=== PATIENT | female | born 1945 | race Caucasian/White ===

== ENCOUNTER 2016-06-17 17:14 | Inpatient (IN) ==
[2016-06-17] MEDS ORDERED: Ipratropium/Albuterol Neb 3 ML IH ONE (18:10)
--- NOTE | 2016-06-17 18:19 | Emergency Department Note ---
Disposition Clinical Impression: Pneumonia, Hypoxemia, Sepsis, Frail elderly, Diabetes, COPD (chronic obstructive pulmonary disease), Hypertension Disposition: Admitted As Inpatient Referrals: Eddie Whitley MD [Primary Care Provider] - Forms: ED Satisfaction Letter General Adult HPI - General Chief complaint: ED Shortness of Breath/Dyspnea Stated complaint: LUKAS, sent from Dr. Rubin Time Seen by Provider: 06/17/16 18:18 Source: patient Limitations: no limitations - History of Present Illness HPI Narrative: 71-year-old female with history of COPD reports to the emergency department complaining of shortness of breath and cough. She has been treated outpatient with anabolic steroids but is apparently getting worse. She went to her primary care physician's office today and they noticed leg swelling and hypoxemia. The patient was sent to the ED for evaluation. The patient denies any CHF or history of CAD. She is not expressing chest pain. She has no history of malignancy PE or DVT. She has not coughed up blood or passed out. She describes upper respiratory symptoms with a significant cough and shortness of breath. There has been no abdominal pain vomiting or diarrhea. She is not noted to be anticoagulated. She is diabetic. The patient reports shortness of breath when laying flat/orthopnea. The patient does not take diuretic medication. She has had bilateral lower extremity swelling no unilateral swelling. There is no history of syncope. No trouble moving the arms or legs independently. No headache neck stiffness rash or convulsion. No falls or injuries back pain or weakness or numbness of the arms or legs. She does describe some urinary frequency. Onset (ago): day(s) Pain Scale: 0 - Related Data Allergies Allergy/AdvReac Type Severity Reaction Status Date / Time No Known Allergies Allergy Verified 10/21/15 11:17 All systems ED: reviewed and negative except as stated. Past Medical History - Past Medical History Medical history: Reports: COPD, diabetes, hyperlipidemia, hypertension, other Psychiatric history: Reports: anxiety - Social History Smoking Status: Current every day smoker Smokeless Tobacco Status: No Alcohol use: Reports: none Drug use: Reports: none Physical Exam - General Limitations: no limitations General appearance: alert, in no apparent distress - Head Head exam: atraumatic, normocephalic, normal inspection - Eye Eye exam: Present: normal appearance, PERRL, EOMI - ENT ENT exam: normal exam, normal oropharynx, mucous membranes moist - Neck Neck exam: Present: normal inspection, full ROM, trachea midline. Absent: tenderness - Chest Chest inspection: Present: symmetric chest wall rise. Absent: tenderness - Respiratory Respiratory exam: Present: prolonged expiratory phase. Absent: respiratory distress, wheezes - Cardiovascular Cardiovascular exam: Present: regular rate, normal rhythm, normal heart sounds - Abdominal Exam Abdominal exam: Present: soft, Non-Tender. Absent: tenderness, distention, guarding, rebound, rigidity, normal bowel sounds - Extremities Exam Extremities exam: Present: normal inspection, full ROM, normal capillary refill , pedal edema. Absent: tenderness, joint swelling, calf tenderness - Expanded Lower Extremity Exam Lower leg exam: Absent: Homans' sign - Back Exam Back exam: Present: normal inspection, full ROM. Absent: tenderness, CVA tenderness (R), CVA tenderness (L), vertebral tenderness - Neurological Exam Neurological exam: Present: alert, oriented X3, CN II-XII intact. Absent: motor sensory deficit - Psychiatric Psychiatric exam: Present: normal affect, normal mood - Skin Skin exam: Present: warm, dry, intact, normal color. Absent: rash, cyanosis, diaphoresis, erythema, pallor, mottled Course Vital Signs Temperature 98.5 F 06/17/16 18:03 Pulse Rate 115 06/17/16 18:03 Respiratory Rate 22 06/17/16 18:03 Blood Pressure 165/60 06/17/16 18:03 O2 Sat by Pulse Oximetry 78 L 06/17/16 18:03 Temperature 98.5 F 06/17/16 18:03 Pulse Rate 115 06/17/16 18:03 Respiratory Rate 20 06/17/16 19:09 Blood Pressure 165/60 06/17/16 18:03 O2 Sat by Pulse Oximetry 97 06/17/16 19:09 Oxygen Delivery Oxygen Delivery Room Air Medical Decision Making - [facility] Narrative Medical decision making narrative: The patient is elderly, has a history of diabetes, she is tachycardic and tachypneic with significant hypoxemia with an O2 saturation of 79% on arrival on room air. The patient meets sepsis criteria. Antibiotics were given IV fluids were ordered. Solu-Medrol was also given. She does have lower extremity edema bilateral with a negative BNP. The possibility for bilateral DVT and/or PE exists. Based on her acute findings, and certain need for hospitalization and further evaluation and treatment, I consulted the hospitalist slot machine department floorperson who is accepted the patient to their care. The patient is currently stable. She is alert sitting upright. A DuoNeb has been ordered. She has been treated outpatient on antibiotics and steroid medications which have not been helpful. She appears to a failed outpatient therapy. The patient does not usually require oxygen. She does have a history of COPD. - Lab Data Lab results reviewed: Yes I reviewed the patient's lab results. Result diagrams: 06/17/16 18:39 06/17/16 18:39 Lab Results 06/17/16 06/17/16 06/17/16 Range/Units 18:39 18:39 18:39 WBC 9.4 (4.3-11.1) K/mcL RBC 4.56 (3.82-4.97) M/mcL Hgb 13.2 (11.5-15.4) g/dL Hct 40.3 (35.3-44.9) % MCV 88.4 (83.0-100.0) fL MCH 28.9 (28.0-33.3) pg MCHC 32.8 (31.6-35.5) g/dL RDW 13.5 (11.5-14.5) % Plt Count 296 (140-400) K/mcL MPV 9.8 (9.4-12.4) fL Immature Gran % 0.3 (0-4) % Seg Neutrophils % 69.1 % Lymphocytes % 19.5 % Monocytes % 9.3 % Eosinophils % 1.5 % Basophils % 0.3 % Neutrophils # 6.5 (1.6-8.9) K/mcL Lymphocytes # 1.8 (0.6-4.6) K/mcL Monocytes # 0.9 (0.0-1.3) K/mcL Eosinophils # 0.1 (0.0-0.6) K/mcL Basophils # 0.0 (0.0-0.2) K/mcL PT 11.1 (9.4-12.1) Seconds INR 1.0 APTT 32.6 (26.0-36.0) Seconds Sodium 135 L (136-145) mEq/L Potassium 4.5 (3.5-4.5) mEq/L Chloride 96 L (98-109) mEq/L Carbon Dioxide 32 H (19-29) mEq/L BUN 15 (7-20) mg/dL Creatinine 0.79 (0.57-1.11) mg/dL Est GFR ( Amer) > 60 (> 60) Est GFR (Non-Af Amer) > 60 (> 60) BUN/Creatinine Ratio 19 (6-26) Glucose 378 H (70-99) mg/dL Calculated Osmolality 296 (280-300) Lactic Acid (0.5-2.2) mmol/L Calcium 9.6 (8.6-10.8) mg/dL Total Bilirubin 0.3 (0.2-1.2) mg/dL Direct Bilirubin 0.1 (0.0-0.5) mg/dL Indirect Bilirubin 0.2 (0.0-1.2) mg/dL AST 12 (5-34) Units/L ALT 21 (0-55) Units/L Alkaline Phosphatase 86 (38-126) Units/L Troponin I (0-0.03) ng/mL C-Reactive Protein 51 H (Less than 5) mg/L B-Natriuretic Peptide (0-100) pg/mL Serum Total Protein 7.5 (6.0-8.3) g/dL Albumin 3.2 L (3.5-5.0) g/dL Globulin 4.3 H (2.4-3.5) g/dL Albumin/Globulin Ratio 0.7 L (1.1-2.2) 06/17/16 06/17/16 06/17/16 Range/Units 18:39 18:39 18:39 WBC (4.3-11.1) K/mcL RBC (3.82-4.97) M/mcL Hgb (11.5-15.4) g/dL Hct (35.3-44.9) % MCV (83.0-100.0) fL MCH (28.0-33.3) pg MCHC (31.6-35.5) g/dL RDW (11.5-14.5) % Plt Count (140-400) K/mcL MPV (9.4-12.4) fL Immature Gran % (0-4) % Seg Neutrophils % % Lymphocytes % % Monocytes % % Eosinophils % % Basophils % % Neutrophils # (1.6-8.9) K/mcL Lymphocytes # (0.6-4.6) K/mcL Monocytes # (0.0-1.3) K/mcL Eosinophils # (0.0-0.6) K/mcL Basophils # (0.0-0.2) K/mcL PT (9.4-12.1) Seconds INR APTT (26.0-36.0) Seconds Sodium (136-145) mEq/L Potassium (3.5-4.5) mEq/L Chloride (98-109) mEq/L Carbon Dioxide (19-29) mEq/L BUN (7-20) mg/dL Creatinine (0.57-1.11) mg/dL Est GFR ( Amer) (> 60) Est GFR (Non-Af Amer) (> 60) BUN/Creatinine Ratio (6-26) Glucose (70-99) mg/dL Calculated Osmolality (280-300) Lactic Acid 1.1 (0.5-2.2) mmol/L Calcium (8.6-10.8) mg/dL Total Bilirubin (0.2-1.2) mg/dL Direct Bilirubin (0.0-0.5) mg/dL Indirect Bilirubin (0.0-1.2) mg/dL AST (5-34) Units/L ALT (0-55) Units/L Alkaline Phosphatase (38-126) Units/L Troponin I 0.01 (0-0.03) ng/mL C-Reactive Protein (Less than 5) mg/L B-Natriuretic Peptide 67 (0-100) pg/mL Serum Total Protein (6.0-8.3) g/dL Albumin (3.5-5.0) g/dL Globulin (2.4-3.5) g/dL Albumin/Globulin Ratio (1.1-2.2) - Radiology Data Radiology results reviewed: Yes I reviewed the patient's radiology results.
[2016-06-17] MEDS ORDERED: methylPREDNISolone 125 MG/2 ML VIAL IVP ONE (18:39)
[2016-06-17 18:48] LABS: Basophils % 0.3 %; Eosinophils # 0.1 K/mcL (0.0-0.6); Eosinophils % 1.5 %; Hematocrit 40.3 % (35.3-44.9); Hemoglobin 13.2 g/dL (11.5-15.4); Immature Granulocytes % 0.3 % (0-4); Lymphocytes # 1.8 K/mcL (0.6-4.6); Lymphocytes % 19.5 %; Mean Corpuscular HGB Conc 32.8 g/dL (31.6-35.5); Mean Corpuscular Hemoglobin 28.9 pg (28.0-33.3); Mean Corpuscular Volume 88.4 fL (83.0-100.0); Mean Platelet Volume 9.8 fL (9.4-12.4); Monocytes # 0.9 K/mcL (0.0-1.3); Monocytes % 9.3 %; Neutrophils # 6.5 K/mcL (1.6-8.9); Platelet Count 296 K/mcL (140-400); Red Blood Count 4.56 M/mcL (3.82-4.97); Red Cell Distribution Width 13.5 % (11.5-14.5); Segmented Neutrophils % 69.1 %
[2016-06-17 18:57] LABS: Prothrombin Time 11.1 Seconds (9.4-12.1)
[2016-06-17 19:00] LABS: Activated Partial Thrombo Time 32.6 Seconds (26.0-36.0)
[2016-06-17 19:09] LABS: Alanine Aminotransferase 21 Units/L (0-55); Albumin 3.2 g/dL (3.5-5.0); Albumin/Globulin Ratio 0.7 (1.1-2.2); Alkaline Phosphatase 86 Units/L (38-126); Aspartate Amino Transferase 12 Units/L (5-34); BUN/Creatinine Ratio 19 (6-26); Bilirubin,Direct 0.1 mg/dL (0.0-0.5); Bilirubin,Indirect 0.2 mg/dL (0.0-1.2); Bilirubin,Total 0.3 mg/dL (0.2-1.2); Blood Urea Nitrogen 15 mg/dL (7-20); C-Reactive Protein 51 mg/L (Less than 5); Calcium 9.6 mg/dL (8.6-10.8); Carbon Dioxide 32 mEq/L (19-29); Chloride 96 mEq/L (98-109); Globulin 4.3 g/dL (2.4-3.5); Glucose 378 mg/dL (70-99); Osmolality,Calculated 296 (280-300); Potassium 4.5 mEq/L (3.5-4.5); Sodium 135 mEq/L (136-145); Total Protein 7.5 g/dL (6.0-8.3); eGFR For African Americans > 60 (> 60); eGFR For Non-African Americans > 60 (> 60)
[2016-06-17] MEDS ORDERED: Levofloxacin 750 MG/150 ML 750 MG/150 ML BAG IVPB ONE (19:17)
[2016-06-17] MEDS ORDERED: 0.9 % Sodium Chloride 1,000 ML IVC SCH (19:45)
[2016-06-17] MEDS ORDERED: Naloxone 0.4 MG/ML INJ IVP PRN (19:57)
[2016-06-17] MEDS ORDERED: Azithromycin 500 MG in D5% in Water 250 ML IVPB ONE (20:01)
[2016-06-17] MEDS ORDERED: Insulin LISPRO 300 UNITS/3 ML VIAL SQ ONE (21:00)
[2016-06-17] MEDS ORDERED: Insulin Regular, Human 100 UNIT/ML SQ ONE (21:09)
[2016-06-17] MEDS ORDERED: D5% in Water 1,000 ML IV PRN (21:54)
[2016-06-17] MEDS ORDERED: *HR* Dextrose 50 % in Water (Syg) 50 ML SYRINGE IVP PRN (21:54)
[2016-06-17] MEDS ORDERED: Dextrose Gel 15 GM PO PRN ×2 (21:54)
--- NOTE | 2016-06-17 22:30 | Internal Med History&Physical ---
Date of Encounter: 06/17/16 Time of Encounter: 10:15 Assessment and Plan (1) Sepsis Current visit: Yes Status: Suspected Admitting patient for sepsis. Patient has positive SIRS criteria with pneumonia. We will treat with IV antibiotics. Follow culture results. Lactate normal. Qualifiers: Sepsis type: Pneumococcus Qualified Code(s): A40.3 - Sepsis due to Streptococcus pneumoniae (2) Pneumonia Current visit: Yes Status: Suspected The patient has pneumonia per chest x-ray and clinical findings. Will treat with IV antibiotics. Follow culture results. We will also send sputum for culture. Qualifiers: Pneumonia type: due to Pneumococcus Laterality: bilateral Lung location: unspecified part of lung Qualified Code(s): J13 - Pneumonia due to Streptococcus pneumoniae (3) Diabetes Current visit: Yes Status: Chronic Elevated blood sugars. Will place patient on sliding scale insulin and Levemir. Monitor blood sugars closely. 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 Will treat with DuoNeb's. Oral steroids. Qualifiers: COPD type: emphysema Emphysema type: other Qualified Code(s): J43.8 - Other emphysema (5) Hypertension Current visit: Yes Status: Chronic Elevated blood pressure. Will continue home medications and monitor blood pressure closely. Qualifiers: Hypertension type: essential hypertension Qualified Code(s): I10 - Essential (primary) hypertension (6) Hypoxemia Current visit: Yes Status: Acute O2 supplementation. Likely due to combination of COPD and pneumonia. Patient will need to be evaluated for home oxygen prior to discharge. (7) Bilateral lower extremity edema Current visit: Yes Status: Acute Check d-dimer, venous Doppler of lower extremities. BNP is normal. Consider 2- D echocardiogram to better evaluate heart function. Internal Medicine - H&P: HPI Chief complaint: Shortness of breath, cough Admitted From: Emergency Dept Plans for Post Hospital Care: Home History of present illness: Ms. Conroy is a 71 year old female with history of COPD, type 2 diabetes mellitus, hyperlipidemia, hypertension who presented to the ER with complaints of continued shortness of breath. Her symptoms have been going on for about 2 weeks now. She initially had symptoms suggestive of sinusitis and was prescribed azithromycin and steroids to help with her symptoms. She completed the treatment course but did not improve. She saw her primary care provider prescribed her Levaquin about 5 days back. She took Levaquin for 3 days and then began to develop swelling in her legs. She was last discharged medication by her primary care provider who saw her in the clinic today. She was hypoxic and so sent to the ER. She continues to have cough with yellow sputum. She denies any chest pain. No nausea or vomiting. No decrease in urine output. No hemoptysis. Past Med Surg Social Fam HX - Past Medical History Medical history: COPD, diabetes, hyperlipidemia, hypertension, other Psychiatric history: anxiety - Social History Smoking Status: Current every day smoker Smokeless Tobacco Status: No Alcohol use: none Drug use: none - Additional Family History Additional family history: History of emphysema and family including her mother and sisters Internal Medicine - H&P: Meds Albuterol Sulfate [Albuterol Inhaler] 2 puff IH Q4H PRN 06/17/16 [History] Aspirin Enteric Coated [Aspirin EC] 81 mg PO DAILY 06/17/16 [History] Benzonatate [Tessalon] 100 mg PO TID PRN 06/17/16 [History] Fenofibrate [Fenofibrate] 54 mg PO DAILY 06/17/16 [History] Glimepiride [Amaryl] 4 mg PO BID 06/17/16 [History] Lisinopril [Zestril] 20 mg PO DAILY 06/17/16 [History] Metformin HCl [Metformin HCl] 1,000 mg PO BID 06/17/16 [History] Pioglitazone [Actos] 15 mg PO DAILY 06/17/16 [History] Simvastatin [Zocor] 20 mg PO HS 06/17/16 [History] Tiotropium [place] [Spiriva] 18 mcg IH DAILY 06/17/16 [History] Allergies levofloxacin [From Levaquin] Allergy (Verified 06/17/16 20:47) Swelling of Lip/Tongue/Throat All Systems PM: A 10-system review of systems was performed and is negative for pertinent findings except as documented above in the HPI. - Constitutional Constitutional: malaise, no chills, no fever(s), no night sweats - EENT Eyes: no change in vision, no discharge, no pain, no photophobia Ears: no ear discharge, no ear pain, no tinnitus Nose, mouth and throat: nasal congestion, sinus pressure, no dysphagia, no nasal discharge, no neck pain, no sore throat - Cardiovascular Cardiovascular ROS IM: edema, no chest pain, no diaphoresis, no dyspnea, no lightheadedness, no palpitations, no syncope - Respiratory Respiratory: cough, excessive phlegm production, change in phlegm color, no dyspnea, no wheezing - Gastrointestinal Gastrointestinal: no abdominal pain, no diarrhea, no hematemesis, no hematochezia, no melena, no nausea, no vomiting - Genitourinary Genitourinary: no change in urinary stream, no dysuria, no flank pain, no hematuria - Musculoskeletal Musculoskeletal ROS IM: no numbness, no tingling - Integumentary Integumentary IM: no rash, no unusual bruising - Neurological Neurological ROS: no confusion, no convulsions, no focal weakness, no numbness, no tingling, no tremor(s) - Endocrine Endocrine IM: no cold intolerance, no fatigue, no flushing, no heat intolerance - Hematologic/Lymphatic Hematologic/Lymphatic: no easy bruising - Allergic/Immunologic Allergic/Immunologic: no tongue swelling, no throat swelling - Constitutional Vitals: Temp Pulse Resp BP Pulse Ox 98.7 F 98 20 136/112 94 L 06/17/16 22:18 06/17/16 22:18 06/17/16 22:18 06/17/16 22:18 06/17/16 22:18 General appearance: Present: cooperative, mild distress, A&O X 3, pleasant, answers questions appropriately - Eye Eye exam: Present: EOMI, PERRL, conjuntiva pink, sclera anicteric - ENT ENT exam: Present: mucous membranes moist - Respiratory Respiratory exam: Present: decreased breath sounds (Decreased air entry bilaterally), prolonged expiratory phase. Absent: accessory muscle use, rales, rhonchi, wheezes - Cardiovascular Cardiovascular exam: Present: RRR, +S1, +S2. Absent: diastolic murmur, gallop, rubs, systolic murmur - GI/Abdominal GI/Abdominal exam: Present: normal bowel sounds, soft, no peritoneal signs. Absent: distended, tenderness - Extremities Exam Extremities exam: Present: pedal edema (Bilateral lower extremity), warm, radial pulses palpable and symetrical. Absent: calf tenderness, cyanotic - Neurological Exam Neurological exam: Present: alert, CN II-XII intact, oriented X3, no focal deficits, strengths equal and symetr throughout. Absent: facial droop, speech deficit - Skin Skin exam: Present: dry, intact Internal Med - H&P Results - Labs CBC & Chem 7: 06/17/16 18:39 06/17/16 18:39 - Impressions Chest x-ray shows bilateral interstitial opacities - Attending Attestation This document has been at least partially created by Qinti recognition technology by Dr. Alarcon. Errors in grammar, wording or other phrases may exist. If errors are found after the documentation is signed, they will be addressed individually in the addendum section of this document when appropriate.
[2016-06-17] MEDS ORDERED: Benzonatate 100 MG CAPSULE PO PRN (22:37)
[2016-06-17] MEDS: Albuterol 2.5 MG/3 ML NEBULIZER IH SCH (23:24)
[2016-06-18] MEDS: Piperacillin/Tazobactam 3.375 GM in D5% in Water (Mini-Bag+) 100 ML IVPB SCH ×2 (00:06→08:39)
[2016-06-18] MEDS: Albuterol 2.5 MG/3 ML NEBULIZER IH SCH ×3 (04:07→11:47)
[2016-06-18] MEDS: Doxycycline 100 MG in 0.9 % Sodium Chloride Mini Bag 100 ML IVPB SCH ×2 (05:49→17:54)
[2016-06-18 06:12] LABS: Basophils % 0.1 %; Hematocrit 39.9 % (35.3-44.9); Hemoglobin 12.9 g/dL (11.5-15.4); Immature Granulocytes % 0.5 % (0-4); Lymphocytes # 0.7 K/mcL (0.6-4.6); Lymphocytes % 7.5 %; Mean Corpuscular HGB Conc 32.3 g/dL (31.6-35.5); Mean Corpuscular Hemoglobin 28.4 pg (28.0-33.3); Mean Corpuscular Volume 87.9 fL (83.0-100.0); Mean Platelet Volume 9.8 fL (9.4-12.4); Monocytes # 0.1 K/mcL (0.0-1.3); Monocytes % 0.9 %; Neutrophils # 8.5 K/mcL (1.6-8.9); Platelet Count 309 K/mcL (140-400); Red Blood Count 4.54 M/mcL (3.82-4.97); Red Cell Distribution Width 13.3 % (11.5-14.5)
[2016-06-18 06:24] LABS: BUN/Creatinine Ratio 21 (6-26); Blood Urea Nitrogen 16 mg/dL (7-20); Calcium 9.4 mg/dL (8.6-10.8); Carbon Dioxide 28 mEq/L (19-29); Chloride 97 mEq/L (98-109); Glucose 390 mg/dL (70-99); Osmolality,Calculated 297 (280-300); Potassium 5.1 mEq/L (3.5-4.5); Sodium 135 mEq/L (136-145); eGFR For African Americans > 60 (> 60); eGFR For Non-African Americans > 60 (> 60)
[2016-06-18] MEDS: *HR* Heparin 5,000 UNIT/ML VIAL SQ SCH ×2 (08:38→18:00)
[2016-06-18] MEDS: Fenofibrate 54 MG TABLET PO SCH (08:39)
[2016-06-18] MEDS: Aspirin Enteric Coated 81 MG Tablet PO SCH (08:40)
[2016-06-18] MEDS: predniSONE 20 MG TABLET PO SCH (08:40)
[2016-06-18] MEDS: Insulin LISPRO 300 UNITS/3 ML VIAL SQ SCH ×2 (08:44→12:46)
[2016-06-18] MEDS ORDERED: Insulin DETEMIR 100 UNIT/ML X5UNITS SQ SCH ×2 (09:00→21:00)
[2016-06-18] MEDS ORDERED: Lisinopril 20 MG TABLET PO SCH (09:00)
[2016-06-18] MEDS ORDERED: Tiotropium 18 MCG inhalation IH SCH (09:00)
--- NOTE | 2016-06-18 09:54 | Electrocardiograph Report ---
[address] [address] Test Date: 2016-06-17 Pat Name: Clary Conroy Department: 103 Room: 2N7 Gender: F Human Resources Partner: : [id number] Requested By: Darwin Cardona Order Number: [id number] Reading MD: Aisha Quarles Measurements Intervals [place] Rate: 108 P: 53 ME: 156 QRS: 59 QRSD: 90 T: 78 QT: 313 QTc: 376 Interpretive Statements SINUS TACHYCARDIA POSSIBLE LEFT ATRIAL ENLARGEMENT MINIMAL ST DEPRESSION ABNORMAL RHYTHM ECG Electronically Signed On 06-18-2016 9:52:29 EST by Aisha Quarles
[2016-06-18 13:05] LABS: Bilirubin,Urine Negative (Negative); Blood,Urine Negative (Negative); Clarity,Urine Clear (Clear); Color,Urine Yellow (Yellow); Glucose,Urine (UA) >=1000 mg/dL (Normal); Ketones,Urine Negative (Negative); Leukocyte Esterase,Urine Negative (Negative); Nitrite,Urine Negative (Negative); Protein,Urine Negative (Neg-Trace); Specific Gravity,Urine > 1.030 (1.010-1.025); Urobilinogen,Urine Normal (Normal)
[2016-06-18 14:03] LABS: Hemoglobin A1C 8.5 %
[2016-06-18] MEDS ORDERED: 0.9 % Sodium Chloride 500 ML IVC ONE (14:13)
[2016-06-18] MEDS ORDERED: Albuterol 2.5 MG/3 ML NEBULIZER IH PRN (14:18)
[2016-06-18] MEDS: Nicotine 21 MG PATCH.TD24 TD SCH (14:38)
[2016-06-18] MEDS: Loratadine 10 MG TABLET PO SCH (14:39)
[2016-06-18] MEDS: *HR* LORazepam 2 MG/ML VIAL IVP SCH ×2 (14:39→19:56)
[2016-06-18] MEDS ORDERED: Insulin LISPRO 300 UNITS/3 ML VIAL SQ SCH ×3 (14:46→21:00)
[2016-06-18 14:51] LABS: Albumin 3.1 g/dL (3.5-5.0); Albumin/Globulin Ratio 0.7 (1.1-2.2); Bilirubin,Total 0.3 mg/dL (0.2-1.2); Calcium 8.7 mg/dL (8.6-10.8); Globulin 4.3 g/dL (2.4-3.5); Magnesium 1.6 mg/dL (1.6-2.6); Phosphorous 3.2 mg/dL (2.3-4.7); Potassium 4.8 mEq/L (3.5-4.5); Total Protein 7.4 g/dL (6.0-8.3)
[2016-06-18] MEDS ORDERED: *HR* Dextrose 50 % in Water (Syg) 50 ML SYRINGE IVP PRN (15:40)
[2016-06-18] MEDS ORDERED: 0.9 % Sodium Chloride 1,000 ML IVC SCH (15:45)
[2016-06-18] MEDS ORDERED: Insulin Human Regular 100 UNIT in 0.9 % Sodium Chloride 100 ML IVC SCH (15:45)
--- NOTE | 2016-06-18 15:45 | Internal Med Progress Note ---
Date of Encounter: 06/18/16 Time of Encounter: 12:30 - Assessment and plan (1) Pneumonia Current Visit: Yes Status: Acute Assessment and plan: Chest XRay shows B/L interstitial opacities, failed outpatient therapy. Continue IV antibiotics- Doxycycline, hold Zosyn for now; completed Azithromycin and developed some leg swelling due to Levaquin per patient; f/up blood cultures; continue supportive care and supplemental O2; Qualifiers: Pneumonia type: due to unspecified organism Laterality: bilateral Lung location: unspecified part of lung Qualified Code(s): J18.9 - Pneumonia, unspecified organism (2) Sepsis Current Visit: Yes Status: Acute Assessment and plan: plan as above; monitor vitals closely; currently noted to be tachycardic and hypoxic, could be due to hyperglycemia; D-dimer noted to be WNL, may consider PE if vitals continue to remain abnormal; Qualifiers: Sepsis type: sepsis due to unspecified organism Qualified Code(s): A41.9 - Sepsis, unspecified organism (3) Hyperglycemia Current Visit: Yes Status: Acute Assessment and plan: HbA1C noted to be 8.5% which is not too bad, but patient continues to have increasing blood sugars, the most recent being in 700s on BMP. Could be due to recent use and current use of oral steroids. No e/o- metabolic acidosis or increased anion gap. Due to uncontrolled blood sugars with subcutaneous insulin regimen, will start IV insulin drip at this time along with aggressive IV hydration. Keep NPO and repeat BMP in 4 hours; monitor Accuchecks Q1hrly; (4) Bilateral lower extremity edema Current Visit: Yes Status: Acute Assessment and plan: could be due to side-effects from recent limited Levaquin use; check Venous Doppler ultrasound to r/o DVT; (5) Hypoxemia Current Visit: Yes Status: Acute Assessment and plan: patient likely has acute on chronic hypoxia due to underlying Pneumonia and COPD ; continue supplemental O2, home O2 evaluation prior to discharge; (6) COPD (chronic obstructive pulmonary disease) Current Visit: Yes Status: Chronic Assessment and plan: start scheduled bronchodilators along with supplemental O2; Qualifiers: COPD type: emphysema Emphysema type: unspecified Qualified Code(s): J43.9 - Emphysema, unspecified (7) Diabetes Current Visit: Yes Status: Chronic Qualifiers: Diabetes mellitus type: type 2 Diabetes mellitus complication status: with hyperglycemia Diabetes mellitus custodial insulin use: without custodial use Qualified Code(s): E11.65 - Type 2 diabetes mellitus with hyperglycemia (8) Hypertension Current Visit: Yes Status: Chronic Qualifiers: Hypertension type: essential hypertension Qualified Code(s): I10 - Essential (primary) hypertension - Subjective Interval history: Feels better than yesterday but feels anxious and slightly short of breath; reports cough at home; smokes about 2-3 packs per day per family at bedside; - Constitutional Vitals: Temp Pulse Resp BP Pulse Ox 98.8 F 114 16 140/68 95 06/18/16 03:59 06/18/16 15:00 06/18/16 15:00 06/18/16 15:00 06/18/16 15:00 General appearance: Present: cooperative, mild distress, A&O X 3, obese, answers questions appropriately - Respiratory Respiratory exam: Present: decreased breath sounds (decreased air entry B/L). Absent: accessory muscle use, rales, rhonchi, wheezes - Cardiovascular Cardiovascular exam: Present: RRR, +S1, +S2, tachycardia. Absent: diastolic murmur, gallop, rubs, systolic murmur - Extremities Exam Extremities exam: Present: pedal edema (1+ pitting pedal edema B/L legs), warm, radial pulses palpable and symetrical. Absent: calf tenderness, cyanotic - Neurological Exam Neurological exam: Present: CN II-XII intact, oriented X3, no focal deficits. Absent: pronater drift, facial droop, speech deficit - Skin Skin exam: Present: dry, intact Internal Medicine: Result - Labs CBC & Chem 7: 06/18/16 05:55 06/18/16 13:27 Labs: Short CBC 06/18/16 Range/Units 05:55 WBC 9.4 (4.3-11.1) K/mcL Hgb 12.9 (11.5-15.4) g/dL Hct 39.9 (35.3-44.9) % Plt Count 309 (140-400) K/mcL Neutrophils # 8.5 (1.6-8.9) K/mcL BMP 06/18/16 06/18/16 05:55 13:27 Sodium 135 L 134 L Potassium 5.1 H 4.8 H Chloride 97 L 94 L Carbon Dioxide 28 27 BUN 16 20 Creatinine 0.77 1.11 Glucose 390 H 752 H* Calcium 9.4 8.7 Liver Function 06/18/16 Range/Units 13:27 Total Bilirubin 0.3 (0.2-1.2) mg/dL AST 14 (5-34) Units/L ALT 22 (0-55) Units/L Alkaline Phosphatase 75 (38-126) Units/L Albumin 3.1 L (3.5-5.0) g/dL Urine 06/18/16 Range/Units 12:58 Urine Color Yellow (Yellow) Urine Clarity Clear (Clear) Urine pH 6.0 (5.0-8.0) pH Units Ur Specific [place] > 1.030 H (1.010-1.025) Urine Protein Negative (Neg-Trace) mg/dL Urine Glucose (UA) >=1000 H (Normal) mg/dL - ABG Interpretation ABG results: PT/INR, D-dimer PT 11.1 Seconds (9.4-12.1) 06/17/16 18:39 D-Dimer 442 ng/mLFEU (0-500) 06/17/16 22:45 - VTE Documentation of Mechanical Device: Intermittent pneumatic compression device Consult Discharge Plan - Plan Referrals: Eddie Whitley MD [Primary Care Provider] - 06/25/16 3:30 pm
[2016-06-18] MEDS: Ipratropium/Albuterol Neb 3 ML IH SCH ×3 (16:50→23:28)
[2016-06-18 22:05] LABS: BUN/Creatinine Ratio 34 (6-26); Blood Urea Nitrogen 23 mg/dL (7-20); Carbon Dioxide 28 mEq/L (19-29); Chloride 103 mEq/L (98-109); Glucose 79 mg/dL (70-99); Osmolality,Calculated 295 (280-300); eGFR For African Americans > 60 (> 60); eGFR For Non-African Americans > 60 (> 60)
[2016-06-18 22:06] LABS: Sodium 141 mEq/L (136-145)
[2016-06-19] MEDS: *HR* LORazepam 2 MG/ML VIAL IVP SCH ×2 (03:02→09:22)
[2016-06-19] MEDS: Ipratropium/Albuterol Neb 3 ML IH SCH ×5 (04:15→20:31)
[2016-06-19 04:21] LABS: Basophils % 0.1 %; Eosinophils % 0.1 %; Hematocrit 35.2 % (35.3-44.9); Immature Granulocytes % 0.5 % (0-4); Lymphocytes % 14.6 %; Mean Corpuscular HGB Conc 31.5 g/dL (31.6-35.5); Mean Corpuscular Hemoglobin 28.1 pg (28.0-33.3); Mean Corpuscular Volume 89.1 fL (83.0-100.0); Mean Platelet Volume 9.4 fL (9.4-12.4); Monocytes % 7.2 %; Neutrophils # 10.6 K/mcL (1.6-8.9); Platelet Count 285 K/mcL (140-400); Red Blood Count 3.95 M/mcL (3.82-4.97); Red Cell Distribution Width 13.7 % (11.5-14.5); Segmented Neutrophils % 77.5 %
[2016-06-19 04:37] LABS: Hemoglobin 11.1 g/dL (11.5-15.4)
[2016-06-19 04:55] LABS: BUN/Creatinine Ratio 38 (6-26); Blood Urea Nitrogen 27 mg/dL (7-20); Calcium 8.3 mg/dL (8.6-10.8); Carbon Dioxide 30 mEq/L (19-29); Chloride 102 mEq/L (98-109); Glucose 189 mg/dL (70-99); Osmolality,Calculated 302 (280-300); Sodium 141 mEq/L (136-145); eGFR For African Americans > 60 (> 60); eGFR For Non-African Americans > 60 (> 60)
[2016-06-19] MEDS: Doxycycline 100 MG in 0.9 % Sodium Chloride Mini Bag 100 ML IVPB SCH ×2 (06:05→17:10)
[2016-06-19] MEDS: *HR* Heparin 5,000 UNIT/ML VIAL SQ SCH ×3 (06:34→21:01)
[2016-06-19] MEDS: predniSONE 20 MG TABLET PO SCH (09:27)
[2016-06-19] MEDS: Nicotine 21 MG PATCH.TD24 TD SCH (09:27)
[2016-06-19] MEDS: Aspirin Enteric Coated 81 MG Tablet PO SCH (09:28)
[2016-06-19] MEDS: Fenofibrate 54 MG TABLET PO SCH (09:28)
[2016-06-19] MEDS: Loratadine 10 MG TABLET PO SCH (09:29)
[2016-06-19] MEDS: Insulin LISPRO 300 UNITS/3 ML VIAL SQ SCH ×3 (09:29→17:11)
[2016-06-19] MEDS ORDERED: Furosemide 20 MG/2 ML VIAL IVP ONE (11:11)
[2016-06-19] MEDS ORDERED: *HR* LORazepam 2 MG/ML VIAL IVP PRN (11:11)
[2016-06-19] MEDS: Acetaminophen 325 MG TABLET PO PRN (12:34)
--- NOTE | 2016-06-19 13:25 | Internal Med Progress Note ---
Date of Encounter: 06/19/16 Time of Encounter: 11:15 - Assessment and plan (1) Pneumonia Current Visit: Yes Status: Acute Assessment and plan: Chest XRay shows B/L interstitial opacities, failed outpatient therapy. Continue IV antibiotics- Doxycycline- day 2, f/up blood cultures; continue supportive care and supplemental O2; Qualifiers: Pneumonia type: due to unspecified organism Laterality: bilateral Lung location: unspecified part of lung Qualified Code(s): J18.9 - Pneumonia, unspecified organism (2) Sepsis Current Visit: Yes Status: Acute Assessment and plan: plan as above; monitor vitals closely; improved tachycardia but continues to be hypoxic, requiring at least 4-5 L/m supplemental oxygen via nasal cannula. Needs home oxygen evaluation prior to discharge. Qualifiers: Sepsis type: sepsis due to unspecified organism Qualified Code(s): A41.9 - Sepsis, unspecified organism (3) Hyperglycemia Current Visit: Yes Status: Acute Assessment and plan: HbA1C noted to be 8.5% which is not too bad. Blood sugars today are noted to be improved. Patient is currently off IV insulin drip. We will resume diabetic diet and continue basal bolus insulin regimen. Continue Accu-Chek blood glucose monitoring. (4) Bilateral lower extremity edema Current Visit: Yes Status: Acute Assessment and plan: could be due to side-effects from recent limited Levaquin use; Venous Doppler ultrasound shows no evidence of DVT. Will check 2-D echocardiogram for left ventricular systolic function and ejection fraction due to chest x-ray findings of pulmonary vascular congestion along with the patient receiving aggressive IV hydration for hyperglycemia treatment. We will give a small dose of IV Lasix today. (5) Hypoxemia Current Visit: Yes Status: Acute Assessment and plan: patient likely has acute on chronic hypoxia due to underlying Pneumonia and COPD ; continue supplemental O2, home O2 evaluation prior to discharge; (6) COPD (chronic obstructive pulmonary disease) Current Visit: Yes Status: Chronic Assessment and plan: Improving slowly but patient has underlying anxiety complicating her hospital course. Continue oral steroids along with IV antibiotics and scheduled bronchodilators. Continue supplemental oxygen. Smoking cessation counseling provided. Qualifiers: COPD type: emphysema Emphysema type: unspecified Qualified Code(s): J43.9 - Emphysema, unspecified (7) Diabetes Current Visit: Yes Status: Chronic Qualifiers: Diabetes mellitus type: type 2 Diabetes mellitus complication status: with hyperglycemia Diabetes mellitus ferry terminal agent insulin use: without ferry terminal agent use Qualified Code(s): E11.65 - Type 2 diabetes mellitus with hyperglycemia (8) Hypertension Current Visit: Yes Status: Chronic Qualifiers: Hypertension type: essential hypertension Qualified Code(s): I10 - Essential (primary) hypertension (9) Tobacco abuse Current Visit: Yes Status: Chronic Assessment and plan: Continue nicotine transdermal patch. - Subjective Interval history: Noted to be very anxious and concerned about her discharge date; reports she had a good night's sleep, however feels restless. Improving leg swelling, no chest pain, dyspnea, orthopnea; - Constitutional Vitals: Temp Pulse Resp BP Pulse Ox 97.4 F L 105 22 122/64 90 L 06/19/16 11:34 06/19/16 11:34 06/19/16 11:34 06/19/16 11:34 06/19/16 11:34 General appearance: Present: mild distress, A&O X 3, obese, answers questions appropriately - Respiratory Respiratory exam: Present: rales (faint crackles B/L bases). Absent: accessory muscle use, rhonchi, wheezes - Cardiovascular Cardiovascular exam: Present: RRR, +S1, +S2, tachycardia. Absent: diastolic murmur, gallop, rubs, systolic murmur - GI/Abdominal GI/Abdominal exam: Present: normal bowel sounds, soft, no peritoneal signs. Absent: distended, tenderness - Extremities Exam Extremities exam: Present: pedal edema (slightly improved pedal edema), warm, radial pulses palpable and symetrical. Absent: calf tenderness, cyanotic Internal Medicine: Result - Labs CBC & Chem 7: 06/19/16 04:12 06/19/16 04:12 Labs: Short CBC 06/19/16 Range/Units 04:12 WBC 13.7 H (4.3-11.1) K/mcL Hgb 11.1 L D (11.5-15.4) g/dL Hct 35.2 L (35.3-44.9) % Plt Count 285 (140-400) K/mcL Neutrophils # 10.6 H (1.6-8.9) K/mcL BMP 06/18/16 06/18/16 06/19/16 13:27 21:17 04:12 Sodium 134 L 141 D 141 Potassium 4.8 H 4.0 4.0 Chloride 94 L 103 102 Carbon Dioxide 27 28 30 H BUN 20 23 H 27 H Creatinine 1.11 0.68 0.72 Glucose 752 H* 79 189 H Calcium 8.7 9.0 8.3 L Liver Function 06/18/16 Range/Units 13:27 Total Bilirubin 0.3 (0.2-1.2) mg/dL AST 14 (5-34) Units/L ALT 22 (0-55) Units/L Alkaline Phosphatase 75 (38-126) Units/L Albumin 3.1 L (3.5-5.0) g/dL - ABG Interpretation ABG results: PT/INR, D-dimer PT 11.1 Seconds (9.4-12.1) 06/17/16 18:39 D-Dimer 442 ng/mLFEU (0-500) 06/17/16 22:45 - Impressions Impressions Chest X-Ray 06/19/16 03:55 IMPRESSION: Pulmonary vascular congestion. This has slightly worsened since the prior exam. D/ / Emily Lemon MD / Emily Lemon MD Interpreting Provider: Emily Lemon MD - VTE Documentation of Mechanical Device: Intermittent pneumatic compression device Consult Discharge Plan - Plan Referrals: Eddie Whitley MD [Primary Care Provider] - 06/25/16 3:30 pm
--- NOTE | 2016-06-19 17:49 | Venous Imaging Report ---
LE Venous Duplex Patient Name:Clary Conroy Order Number:[id number] Procedure Date:06/18/2016 Date:4Age:71 yrs Gender:Female Location:[facility] Room #: [id number] Tipple Worker:Fabiola Lujan Referring MD:Erica Alarcon MD electrical control assembler:Eddie Whitley MD Reading MD:Toni Calhoun MD Primary Indications:Bilateral pedal edema, suspect DVT Secondary Indications: Risk Factors Yes/No Anticoagulants Yes Impressions: Normal bilateral lower extremity deep and superficial venous exam. Recommendations: After imaging the patient returned to their room. Findings Venous Duplex Results: Right: Venous imaging of the lower extremity reveals full patency and normal vessel compressibility of the right distal iliac, right common femoral, right superficial femoral, right popliteal, right posterior tibial, right peroneal, right great saphenous and right lesser saphenous. Doppler signals in the evaluated veins were normal. Left: Venous imaging of the lower extremity reveals full patency and normal vessel compressibility of the left distal iliac, left common femoral, left superficial femoral, left popliteal, left posterior tibial, left peroneal, left great saphenous and left lesser saphenous. Doppler signals in the evaluated veins were normal. Prior Study: No prior study available for comparison. Lower Extremity Venous Duplex Side Vein Compress Spontaneous Flow Augment Diameter (cm) Depth (cm) Right Distal Iliac Normal Yes Phasic Yes Right Common Femoral Normal Yes Phasic Yes Right Superficial Femoral Normal Yes Phasic Yes Right Popliteal Normal Yes Phasic Yes Right Posterior Tibial Normal Yes Phasic Yes Right Peroneal Normal Yes Phasic Yes Right Great Saphenous Normal Yes Phasic Yes Right Lesser Saphenous Normal Yes Phasic Yes Left Distal Iliac Normal Yes Phasic Yes Left Common Femoral Normal Yes Phasic Yes Left Superficial Femoral Normal Yes Phasic Yes Left Popliteal Normal Yes Phasic Yes Left Posterior Tibial Normal Yes Phasic Yes Left Peroneal Normal Yes Phasic Yes Left Great Saphenous Normal Yes Phasic Yes Left Lesser Saphenous Normal Yes Phasic Yes Updated by Toni Calhoun MD on 06/19/2016 5:38:20 PM electronically signed on 06/19/2016 5:44:59 PM with status of Final
[2016-06-19] MEDS ORDERED: Insulin LISPRO 300 UNITS/3 ML VIAL SQ SCH ×3 (20:11→21:00)
[2016-06-19] MEDS: Insulin DETEMIR 100 UNIT/ML X5UNITS SQ SCH (21:48)
[2016-06-20] MEDS: Ipratropium/Albuterol Neb 3 ML IH SCH ×6 (00:01→19:42)
[2016-06-20 05:00] LABS: Basophils % 0.2 %; Eosinophils % 0.2 %; Hematocrit 34.6 % (35.3-44.9); Hemoglobin 10.9 g/dL (11.5-15.4); Immature Granulocytes % 0.4 % (0-4); Lymphocytes # 1.7 K/mcL (0.6-4.6); Lymphocytes % 17.2 %; Mean Corpuscular HGB Conc 31.5 g/dL (31.6-35.5); Mean Corpuscular Hemoglobin 28.5 pg (28.0-33.3); Mean Corpuscular Volume 90.3 fL (83.0-100.0); Mean Platelet Volume 9.3 fL (9.4-12.4); Monocytes # 0.8 K/mcL (0.0-1.3); Monocytes % 7.9 %; Neutrophils # 7.5 K/mcL (1.6-8.9); Platelet Count 262 K/mcL (140-400); Red Blood Count 3.83 M/mcL (3.82-4.97); Red Cell Distribution Width 13.8 % (11.5-14.5); Segmented Neutrophils % 74.1 %
[2016-06-20 05:11] LABS: BUN/Creatinine Ratio 36 (6-26); Blood Urea Nitrogen 24 mg/dL (7-20); Calcium 8.7 mg/dL (8.6-10.8); Carbon Dioxide 33 mEq/L (19-29); Chloride 102 mEq/L (98-109); Glucose 212 mg/dL (70-99); Osmolality,Calculated 302 (280-300); Potassium 4.9 mEq/L (3.5-4.5); Sodium 141 mEq/L (136-145); eGFR For African Americans > 60 (> 60); eGFR For Non-African Americans > 60 (> 60)
[2016-06-20] MEDS: Doxycycline 100 MG in 0.9 % Sodium Chloride Mini Bag 100 ML IVPB SCH ×2 (05:55→17:04)
[2016-06-20] MEDS: Acetaminophen 325 MG TABLET PO PRN (05:56)
[2016-06-20] MEDS: *HR* Heparin 5,000 UNIT/ML VIAL SQ SCH ×4 (05:56→21:43)
[2016-06-20] MEDS ORDERED: Perflutren Lipid Microsphere 1.3 ML in 0.9 % Sodium Chloride 8.7 ML IVP ONE (08:12)
[2016-06-20] MEDS: Aspirin Enteric Coated 81 MG Tablet PO SCH (09:27)
[2016-06-20] MEDS: Fenofibrate 54 MG TABLET PO SCH (09:27)
[2016-06-20] MEDS: predniSONE 20 MG TABLET PO SCH (09:28)
[2016-06-20] MEDS: Insulin DETEMIR 100 UNIT/ML X5UNITS SQ SCH ×2 (09:28→21:32)
[2016-06-20] MEDS: Nicotine 21 MG PATCH.TD24 TD SCH (09:28)
[2016-06-20] MEDS: Loratadine 10 MG TABLET PO SCH (09:28)
--- NOTE | 2016-06-20 13:33 | ECHO - Doppler Report ---
Echo with Imaging Enhancement Agent Name: Clary Conroy Date of Study: 06/20/2016 Date: 1945 Ht: 63.0 in Medical Record#: [id number] Age: 71 Wt: 219.0 lb Gender: Female BSA: 2.01 Order #: [id number] Location: [facility] Room #: [id number] Reading Physician: Andre Osei DO, WIL, RYAN BUTLER [employer] Ebs Architect: Jacquie Escalera Ordering Physician: Melva Whatley MD Primary Physician: Eddie Whitley MD Indications: Shortness of breath, Pedal edema , Elevated BNP Impressions: Technically sub-optimal due to poor echocardiographic windows. LVEF 65-70%. Normal LV chamber size and function. Mild concentric left ventricular hypertrophy. Mild left ventricular diastolic dysfunction. Grossly normal right ventricular structure and function. Moderately dilated left atrium. Aortic valve not well visualized. Mildly increased gradient across the LVOT and AV. After PW Doppler analysis, the level of obstruction appeared to be the LVOT, which was not well visualized. Possible chordal CARMENCITA noted. Moderately thickened mitral valve leaflets with reduced mobility. Moderate-severe mitral stenosis. Mean gradient 9 mmHg (HR 103 bpm). No evidence of pulmonary hypertension identified. RVSP was not well obtained. Lowering HR may help to minimize mitral valve gradient. Consider CR to further evaluate mitral valve and LVOT if clinically indicated. Left Ventricular Wall Motion: Rest Echo Findings All wall segments showed normal motion. Findings: Study Quality * Technically sub-optimal due to poor echocardiographic windows. ECG Findings * Sinus tachycardia. Left Ventricle * LVEF 65-70%. * Normal LV chamber size and function. * Mild concentric left ventricular hypertrophy. * Mild left ventricular diastolic dysfunction. Right Ventricle * Grossly normal right ventricular structure and function. Left Atrium * Moderately dilated left atrium. Right Atrium * Mildly dilated right atrium. Interatrial Septum * Interatrial septum not well evaluated. Aortic Valve * Aortic valve not well visualized. * No aortic regurgitation. * Aortic valve not well visualized. Mildly increased gradient across the LVOT and AV. After PW Doppler analysis, the level of obstruction appeared to be the LVOT, which was not well visualized. Possible chordal CARMENCITA noted. Mitral Valve * Moderate mitral annular calcification. * Moderately thickened and calcified mitral valve leaflets with reduced mobility. * No mitral regurgitation. * Moderate-severe mitral stenosis. Mean gradient 9 mmHg (HR 103 bpm). Tricuspid Valve * Normal tricuspid valve structure and function. * Trace tricuspid regurgitation. * No evidence of pulmonary hypertension identified. RVSP was not well obtained. Pulmonic Valve * Pulmonic valve not well visualized. Aorta * Normally sized aortic root. Pericardium * The pericardium appears normal. History Diabetes Hypercholesteremia History of Smoking Years 50 Packs 1 Family History of CAD Contrast: Definity 1.3 ml in 8.7 ml of saline 3 ml. Measurements: BP: 139/ 73 2D Normal Values RVIDd: 3.00 cm <2.7 cm IVSd: 1.30 cm 0.6 - 1.0 cm LVIDd: 4.40 cm 3.7 - 5.6 cm LVPWd: 1.30 cm 0.6 - 1.1 cm LVIDs: 2.60 cm 1.5 - 3.6 cm AO: 2.70 cm < 4.0 cm LA: 4.00 cm 2.0 - 4.0cm %FS: 40.90 cm >25 % LVOT Diam: 2.00 cm LA volume: 53 Mitral Valve Peak Velocity 2.21 m/sec Mean Velocity:1.41 m/sec Peak Grad:20.00 mmHg Mean Grad:9.00 mmHg Pressure Time:69.00 msec Valve Area:2.94 cm2 Peak E:1.58 m/sec Peak A:1.61 m/sec E/A Ratio:1 Peak E' Lat Placido:5.56 cm/s Peak E' Med Placido:9.75 cm/s E/E' Lat Ratio:28.4 E/E' Med Ratio:16.2 LVOT Peak Placido:2.20 m/sec Mean Placido:1.66 m/sec Peak Grad:19.00 mmHg Mean Grad:12.00 mmHg Aortic Valve Peak Placido:2.25 m/sec Mean Placido:1.69 m/sec Peak Grad:20.00 mmHg Mean Grad:13.00 mmHg Valve Area:3.08 cm2 Tricuspid Valve TV Regurg Peak Grad: 25.00mmHg TV Regurg Peak Placido: 2.52m/sec Updated by Andre Osei DO, WIL, RYAN BUTLER on 06/20/2016 1:22:31 PM electronically signed on 06/20/2016 1:27:50 PM with status of Final Wall Motion Lynn: 1=Normal, 2=Hypokinesis, 3=Akinesis, 4=Dyskinesis, 5=Aneurysmal, 6=Hyperkinetic, X=Not Visualized (Blank)=Missing
[2016-06-20] MEDS: MethylPREDNISolone 40 MG/ML VIAL IVP SCH (17:04)
[2016-06-20] MEDS: Insulin LISPRO 300 UNITS/3 ML VIAL SQ SCH ×2 (17:05→21:32)
--- NOTE | 2016-06-20 17:19 | Internal Med Progress Note ---
Date of Encounter: 06/20/16 Time of Encounter: 12:00 - Assessment and plan (1) Pneumonia Status: Acute Assessment and plan: Chest XRay shows B/L interstitial opacities, failed outpatient therapy. Continue IV antibiotics- Doxycycline- day 3, blood cultures remain negative; continue supportive care and supplemental O2; Qualifiers: Pneumonia type: due to unspecified organism Laterality: bilateral Lung location: unspecified part of lung Qualified Code(s): J18.9 - Pneumonia, unspecified organism (2) Sepsis Status: Resolved Assessment and plan: plan as above; monitor vitals closely; Qualifiers: Sepsis type: sepsis due to unspecified organism Qualified Code(s): A41.9 - Sepsis, unspecified organism (3) Hyperglycemia Status: Acute Assessment and plan: HbA1C noted to be 8.5% which is not too bad. Blood sugars better controlled, off IV insulin; increase dose of basal bolus insulin; Continue Accu-Chek blood glucose monitoring. Diabetic diet. (4) Bilateral lower extremity edema Status: Chronic Assessment and plan: Venous Doppler negative for DVT; f/up Echocardiogram report; (5) Hypoxemia Status: Acute (6) COPD (chronic obstructive pulmonary disease) Status: Acute Assessment and plan: Acute exacerbation of COPD. Improving slowly but still requires at least 4-5L/ min O2 via NC; PT evaluation noted, recommend placement in inpatient rehab; patient declines this at this time and would like to be discharged home with [facility] ; continue IV steroids, taper down as tolerated. Continue bronchodilators, supplemental oxygen and IV antibiotics. She needs to be discharged on home continuous oxygen and nebulizers. PRN Ativan for anxiety attacks; Qualifiers: COPD type: emphysema Emphysema type: unspecified Qualified Code(s): J43.9 - Emphysema, unspecified (7) Diabetes Status: Chronic Qualifiers: Diabetes mellitus type: type 2 Diabetes mellitus complication status: with hyperglycemia Diabetes mellitus nursing home insulin use: without nursing home use Qualified Code(s): E11.65 - Type 2 diabetes mellitus with hyperglycemia (8) Hypertension Status: Chronic Qualifiers: Hypertension type: essential hypertension Qualified Code(s): I10 - Essential (primary) hypertension (9) Tobacco abuse Status: Chronic - Subjective Interval history: Sitting up in chair today. Continues to have some respiratory distress along with productive cough with clear mucus. No fever or chills. Anxious about being discharged. Discussed physical therapy recommendation of inpatient rehabilitation, insists on going home. - Constitutional Vitals: Temp Pulse Resp BP Pulse Ox 98.6 F 101 20 144/69 95 06/20/16 15:00 06/20/16 15:00 06/20/16 16:09 06/20/16 15:00 06/20/16 16:09 General appearance: Present: mild distress, A&O X 3, obese, answers questions appropriately - Respiratory Respiratory exam: Present: decreased breath sounds (Decreased air entry bilaterally). Absent: accessory muscle use, rales, rhonchi, wheezes - Cardiovascular Cardiovascular exam: Present: RRR, +S1, +S2. Absent: diastolic murmur, gallop, rubs, systolic murmur - GI/Abdominal GI/Abdominal exam: Present: normal bowel sounds, soft, no peritoneal signs. Absent: distended, tenderness - Extremities Exam Extremities exam: Present: full ROM, pedal edema (Improving pedal edema), warm, radial pulses palpable and symetrical. Absent: calf tenderness, cyanotic - Neurological Exam Neurological exam: Present: CN II-XII intact, oriented X3, no focal deficits. Absent: pronater drift, facial droop, speech deficit - Skin Skin exam: Present: dry, intact Internal Medicine: Result - Labs CBC & Chem 7: 06/20/16 04:45 06/23/16 06:13 Labs: Short CBC 06/20/16 Range/Units 04:45 WBC 10.1 (4.3-11.1) K/mcL Hgb 10.9 L (11.5-15.4) g/dL Hct 34.6 L (35.3-44.9) % Plt Count 262 (140-400) K/mcL Neutrophils # 7.5 (1.6-8.9) K/mcL BMP 06/20/16 04:45 Sodium 141 Potassium 4.9 H Chloride 102 Carbon Dioxide 33 H BUN 24 H Creatinine 0.67 Glucose 212 H Calcium 8.7 - ABG Interpretation ABG results: PT/INR, D-dimer PT 11.1 Seconds (9.4-12.1) 06/17/16 18:39 D-Dimer 442 ng/mLFEU (0-500) 06/17/16 22:45 - VTE Documentation of Mechanical Device: Intermittent pneumatic compression device Consult Discharge Plan - Plan Instructions: Diabetes Mellitus Type 2 in Adults (DC), Chronic Obstructive Pulmonary Disease (DC), Sepsis (DC), Chronic Hypertension (DC), Pneumonia (DC) Referrals: Eddie Whitley MD [Primary Care Provider] - 06/25/16 3:30 pm Prescriptions: Albuterol Neb [Proventil Neb] 2.5 mg IH Q4HR PRN 30 Days PRN Reason: Shortness Of Breath/Wheezing Furosemide [Lasix] 20 mg PO BIDDIURETIC #30 tablet Metoprolol [Lopressor] 25 mg PO BID #30 tablet Nebulizer [Aeroeclipse] 1 each MC Q4H PRN 30 Days PRN Reason: Shortness Of Breath/Wheezing Nebulizer Accessories [Sootheneb [id number] Adult Mask] 1 each MC Q4H PRN 30 Days PRN Reason: Shortness Of Breath/Wheezing Nebulizer Accessories [Sootheneb [id number] Mesh Cap] 1 each MC Q4H PRN 30 Days PRN Reason: Shortness Of Breath/Wheezing Nebulizer Accessories [Sootheneb [id number] Med Cup] 1 each MC Q4H PRN 30 Days PRN Reason: Shortness Of Breath/Wheezing Nicotine Patch [Nicoderm] 21 mg TD DAILY #20 patch.[id number] PredniSONE 40 mg PO DAILY #10 tablet
[2016-06-21] MEDS: MethylPREDNISolone 40 MG/ML VIAL IVP SCH ×3 (00:13→13:24)
[2016-06-21] MEDS: Ipratropium/Albuterol Neb 3 ML IH SCH ×7 (00:26→23:58)
[2016-06-21 05:48] LABS: BUN/Creatinine Ratio 32 (6-26); Blood Urea Nitrogen 22 mg/dL (7-20); Carbon Dioxide 31 mEq/L (19-29); Chloride 99 mEq/L (98-109); Glucose 241 mg/dL (70-99); Osmolality,Calculated 297 (280-300); Potassium 5.1 mEq/L (3.5-4.5); Sodium 138 mEq/L (136-145); eGFR For African Americans > 60 (> 60); eGFR For Non-African Americans > 60 (> 60)
[2016-06-21] MEDS: *HR* Heparin 5,000 UNIT/ML VIAL SQ SCH ×2 (06:10→17:32)
[2016-06-21] MEDS: Doxycycline 100 MG in 0.9 % Sodium Chloride Mini Bag 100 ML IVPB SCH ×2 (06:10→17:26)
[2016-06-21] MEDS: Nicotine 21 MG PATCH.TD24 TD SCH (07:52)
[2016-06-21] MEDS: Fenofibrate 54 MG TABLET PO SCH (07:58)
[2016-06-21] MEDS: Aspirin Enteric Coated 81 MG Tablet PO SCH (07:58)
[2016-06-21] MEDS: Loratadine 10 MG TABLET PO SCH (07:58)
[2016-06-21] MEDS: Insulin LISPRO 300 UNITS/3 ML VIAL SQ SCH ×5 (08:00→21:11)
[2016-06-21] MEDS: Insulin DETEMIR 100 UNIT/ML X5UNITS SQ SCH ×2 (08:08→21:10)
[2016-06-21] MEDS ORDERED: Saline Nasal Spray 44 ML BOTTLE NS PRN (11:43)
--- NOTE | 2016-06-21 12:02 | Internal Med Progress Note ---
Date of Encounter: 06/21/16 Time of Encounter: 12:00 - Assessment and plan (1) Mitral stenosis Current Visit: Yes Status: Chronic Assessment and plan: Echocardiogram reviewed, which shows preserved ejection fraction of 65-70%, moderate to severe mitral stenosis, moderate left atrial dilation, mild left ventricular diastolic dysfunction, no pulmonary hypertension. Patient will be started on beta jane and diuretics. Continue to monitor closely. she may need outpatient cardiology follow-up. Qualifiers: Cardiac valve disease etiology: etiology unspecified Qualified Code(s): I05.0 - Rheumatic mitral stenosis (2) Pneumonia Current Visit: Yes Status: Acute Assessment and plan: Chest XRay shows B/L interstitial opacities, failed outpatient therapy. Continue IV antibiotics- Doxycycline- day 4, blood cultures remain negative; continue supportive care and supplemental O2; Qualifiers: Pneumonia type: due to unspecified organism Laterality: bilateral Lung location: unspecified part of lung Qualified Code(s): J18.9 - Pneumonia, unspecified organism (3) Sepsis Current Visit: Yes Status: Resolved Assessment and plan: plan as above; monitor vitals closely; Qualifiers: Sepsis type: sepsis due to unspecified organism Qualified Code(s): A41.9 - Sepsis, unspecified organism (4) Hyperglycemia Current Visit: Yes Status: Acute Assessment and plan: HbA1C noted to be 8.5% which is not too bad. Continues to have steroid-induced hyperglycemia. We will increase the dose of basal insulin and continue high- dose sliding scale insulin. Continue Accu-Chek blood glucose monitoring. Diabetic diet. (5) Bilateral lower extremity edema Current Visit: Yes Status: Chronic Assessment and plan: Likely related to mitral stenosis as seen on echocardiogram. Start Lasix. Lower extremity elevation. (6) Hypoxemia Current Visit: Yes Status: Acute Assessment and plan: patient likely has acute on chronic hypoxia due to underlying Pneumonia and COPD ; continue supplemental O2, home O2 evaluation done and patient continues to require 2-3 L/m oxygen continuously. She is noted to be ambulatory at home and will benefit from portable home oxygen. (7) COPD (chronic obstructive pulmonary disease) Current Visit: Yes Status: Acute Assessment and plan: Acute exacerbation of COPD. Improving gradually but requires medical stabilization prior to discharge, especially since she refuses rehabilitation placement and home health referral cannot be done until she sees her primary care provider. Continue to taper down IV steroids as tolerated. Continue bronchodilators, supplemental oxygen and IV antibiotics. She needs to be discharged on home continuous oxygen and nebulizers. Qualifiers: COPD type: emphysema Emphysema type: unspecified Qualified Code(s): J43.9 - Emphysema, unspecified (8) Diabetes Current Visit: Yes Status: Chronic Assessment and plan: Plan as above. Qualifiers: Diabetes mellitus type: type 2 Diabetes mellitus complication status: with hyperglycemia Diabetes mellitus [facility] insulin use: without [facility] use Qualified Code(s): E11.65 - Type 2 diabetes mellitus with hyperglycemia (9) Hypertension Current Visit: Yes Status: Chronic Qualifiers: Hypertension type: essential hypertension Qualified Code(s): I10 - Essential (primary) hypertension (10) Tobacco abuse Current Visit: Yes Status: Chronic Assessment and plan: Continue nicotine transdermal patch. - Subjective Interval history: Reports feeling better. Continues to get short of breath on walking with physical therapy. Has persistent cough, currently dry. No chest pain or palpitations. Continues to feel very anxious to be discharged home. - Constitutional Vitals: Temp Pulse Resp BP Pulse Ox 98.4 F 91 18 147/65 94 L 06/21/16 10:54 06/21/16 10:54 06/21/16 10:54 06/21/16 10:54 06/21/16 10:54 General appearance: Present: A&O X 3, obese, answers questions appropriately - Respiratory Respiratory exam: Present: decreased breath sounds (Slightly improved air entry bilaterally), CTAB. Absent: accessory muscle use, rales, rhonchi, wheezes - Cardiovascular Cardiovascular exam: Present: RRR, +S1, +S2, tachycardia. Absent: diastolic murmur, gallop, rubs, systolic murmur - GI/Abdominal GI/Abdominal exam: Present: normal bowel sounds, soft (Obese), no peritoneal signs. Absent: distended, tenderness - Extremities Exam Extremities exam: Present: pedal edema, warm, radial pulses palpable and symetrical. Absent: calf tenderness, cyanotic - Neurological Exam Neurological exam: Present: CN II-XII intact, oriented X3, no focal deficits. Absent: pronater drift, facial droop, speech deficit - Skin Skin exam: Present: dry, intact Internal Medicine: Result - Labs CBC & Chem 7: 06/20/16 04:45 06/21/16 05:27 Labs: BMP 06/21/16 05:27 Sodium 138 Potassium 5.1 H Chloride 99 Carbon Dioxide 31 H BUN 22 H Creatinine 0.69 Glucose 241 H Calcium 9.0 - ABG Interpretation ABG results: PT/INR, D-dimer PT 11.1 Seconds (9.4-12.1) 06/17/16 18:39 D-Dimer 442 ng/mLFEU (0-500) 06/17/16 22:45 - VTE Documentation of Mechanical Device: Intermittent pneumatic compression device Consult Discharge Plan - Plan Referrals: Eddie Whitley MD [Primary Care Provider] - 06/25/16 3:30 pm
[2016-06-21] MEDS: Furosemide 20 MG TABLET PO SCH ×2 (13:20→17:26)
[2016-06-21] MEDS: Sennosides/Docusate Sodium TABLET PO SCH ×2 (13:20→21:09)
[2016-06-21] MEDS ORDERED: 0.9 % Sodium Chloride Mini Bag 100 ML ONE (17:30)
[2016-06-22] MEDS: Ipratropium/Albuterol Neb 3 ML IH SCH ×6 (03:54→23:16)
[2016-06-22] MEDS: Doxycycline 100 MG in 0.9 % Sodium Chloride Mini Bag 100 ML IVPB SCH ×2 (06:32→16:29)
[2016-06-22] MEDS: *HR* Heparin 5,000 UNIT/ML VIAL SQ SCH ×2 (06:32→16:40)
[2016-06-22] MEDS: MethylPREDNISolone 40 MG/ML VIAL IVP SCH (08:50)
[2016-06-22] MEDS: Fenofibrate 54 MG TABLET PO SCH (08:54)
[2016-06-22] MEDS: Sennosides/Docusate Sodium TABLET PO SCH ×2 (08:55→20:57)
[2016-06-22] MEDS: Loratadine 10 MG TABLET PO SCH (08:55)
[2016-06-22] MEDS: Aspirin Enteric Coated 81 MG Tablet PO SCH (08:55)
[2016-06-22] MEDS: Nicotine 21 MG PATCH.TD24 TD SCH (08:56)
[2016-06-22] MEDS: Furosemide 20 MG TABLET PO SCH ×2 (08:56→16:28)
[2016-06-22] MEDS: Insulin LISPRO 300 UNITS/3 ML VIAL SQ SCH ×3 (08:57→16:28)
[2016-06-22] MEDS: Insulin DETEMIR 100 UNIT/ML X5UNITS SQ SCH ×2 (09:00→21:04)
[2016-06-22] MEDS ORDERED: Dextrose Gel 15 GM PO PRN ×2 (11:21)
[2016-06-22] MEDS ORDERED: D5% in Water 1,000 ML IV PRN (11:21)
[2016-06-22] MEDS ORDERED: *HR* Dextrose 50 % in Water (Syg) 50 ML SYRINGE IVP PRN (11:21)
[2016-06-22] MEDS ORDERED: Insulin LISPRO 300 UNITS/3 ML VIAL SQ SCH ×3 (11:30→21:00)
--- NOTE | 2016-06-22 11:36 | Internal Med Progress Note ---
Date of Encounter: 06/22/16 Time of Encounter: 11:34 - Assessment and plan (1) Mitral stenosis Current Visit: Yes Status: Chronic Assessment and plan: started on beta jane and diuretics. We will increase the dose of metoprolol to 25 mg twice daily. Fluid restriction to 1.2 L per day along with urine output monitoring and daily weights. Continue to monitor closely. she may need outpatient cardiology follow-up. Qualifiers: Cardiac valve disease etiology: etiology unspecified Qualified Code(s): I05.0 - Rheumatic mitral stenosis (2) Pneumonia Current Visit: Yes Status: Acute Assessment and plan: Chest XRay shows B/L interstitial opacities, failed outpatient therapy. Continue IV antibiotics- Doxycycline- day 5, blood cultures remain negative; continue supportive care and supplemental O2; Qualifiers: Pneumonia type: due to unspecified organism Laterality: bilateral Lung location: unspecified part of lung Qualified Code(s): J18.9 - Pneumonia, unspecified organism (3) Sepsis Current Visit: Yes Status: Resolved Qualifiers: Sepsis type: sepsis due to unspecified organism Qualified Code(s): A41.9 - Sepsis, unspecified organism (4) Hyperglycemia Current Visit: Yes Status: Acute Assessment and plan: HbA1C noted to be 8.5% which is not too bad. Continues to have steroid-induced hyperglycemia. Noted to have blood sugars in 400s last night, however sugars today are low normal. Continue basal bolus insulin regimen. Expect blood sugars to improve as her steroids are being switched to oral prednisone today. Continue Accu-Chek blood glucose monitoring. Diabetic diet. (5) Bilateral lower extremity edema Current Visit: Yes Status: Chronic Assessment and plan: Likely related to mitral stenosis as seen on echocardiogram. Started Lasix. Lower extremity elevation. (6) Hypoxemia Current Visit: Yes Status: Acute (7) COPD (chronic obstructive pulmonary disease) Current Visit: Yes Status: Acute Assessment and plan: Acute exacerbation of COPD. Improving gradually but requires medical stabilization prior to discharge, especially since she refuses rehabilitation placement and home health referral cannot be done until she sees her primary care provider. Change steroids to oral prednisone 40 mg daily. Continue bronchodilators, supplemental oxygen and IV antibiotics. She needs to be discharged on home continuous oxygen and nebulizers. Qualifiers: COPD type: emphysema Emphysema type: unspecified Qualified Code(s): J43.9 - Emphysema, unspecified (8) Diabetes Current Visit: Yes Status: Chronic Qualifiers: Diabetes mellitus type: type 2 Diabetes mellitus complication status: with hyperglycemia Diabetes mellitus chcf insulin use: without chcf use Qualified Code(s): E11.65 - Type 2 diabetes mellitus with hyperglycemia (9) Hypertension Current Visit: Yes Status: Chronic Qualifiers: Hypertension type: essential hypertension Qualified Code(s): I10 - Essential (primary) hypertension (10) Tobacco abuse Current Visit: Yes Status: Chronic Assessment and plan: Continue nicotine transdermal patch. Patient request for a prescription for nicotine patch at the time of discharge. - Subjective Interval history: Improving symptoms. Improved anxiety and shortness of breath. Oxygen requirements stable at 3 L/m via nasal cannula. No chest pain, palpitations. - Constitutional Vitals: Temp Pulse Resp BP Pulse Ox 98.3 F 98 20 147/66 97 06/21/16 21:16 06/21/16 21:16 06/22/16 10:11 06/21/16 21:16 06/22/16 10:11 General appearance: Present: A&O X 3, obese, answers questions appropriately - Respiratory Respiratory exam: Present: decreased breath sounds (Improving air entry bilaterally), CTAB. Absent: accessory muscle use, rales, rhonchi, wheezes - Cardiovascular Cardiovascular exam: Present: RRR, +S1, +S2, tachycardia. Absent: diastolic murmur, gallop, rubs, systolic murmur - GI/Abdominal GI/Abdominal exam: Present: normal bowel sounds, soft, no peritoneal signs. Absent: distended, tenderness - Extremities Exam Extremities exam: Present: pedal edema, warm, radial pulses palpable and symetrical. Absent: calf tenderness, cyanotic Internal Medicine: Result - Labs CBC & Chem 7: 06/20/16 04:45 06/21/16 05:27 - ABG Interpretation ABG results: PT/INR, D-dimer PT 11.1 Seconds (9.4-12.1) 06/17/16 18:39 D-Dimer 442 ng/mLFEU (0-500) 06/17/16 22:45 - VTE Documentation of Mechanical Device: Intermittent pneumatic compression device Consult Discharge Plan - Plan Referrals: Eddie Whitley MD [Primary Care Provider] - 06/25/16 3:30 pm
[2016-06-23] MEDS: Ipratropium/Albuterol Neb 3 ML IH SCH ×3 (04:13→11:49)
[2016-06-23 05:47] VITALS: BP 152/64
[2016-06-23] MEDS: Doxycycline 100 MG in 0.9 % Sodium Chloride Mini Bag 100 ML IVPB SCH (06:32)
[2016-06-23] MEDS: *HR* Heparin 5,000 UNIT/ML VIAL SQ SCH (06:32)
[2016-06-23 07:07] LABS: BUN/Creatinine Ratio 29 (6-26); Blood Urea Nitrogen 18 mg/dL (7-20); Calcium 8.6 mg/dL (8.6-10.8); Carbon Dioxide 35 mEq/L (19-29); Chloride 97 mEq/L (98-109); Glucose 135 mg/dL (70-99); Osmolality,Calculated 296 (280-300); Potassium 4.2 mEq/L (3.5-4.5); Sodium 141 mEq/L (136-145); eGFR For African Americans > 60 (> 60); eGFR For Non-African Americans > 60 (> 60)
[2016-06-23] MEDS: Nicotine 21 MG PATCH.TD24 TD SCH (08:53)
[2016-06-23] MEDS: Aspirin Enteric Coated 81 MG Tablet PO SCH (08:54)
[2016-06-23] MEDS: Loratadine 10 MG TABLET PO SCH (08:54)
[2016-06-23] MEDS: Furosemide 20 MG TABLET PO SCH (08:54)
[2016-06-23] MEDS: Fenofibrate 54 MG TABLET PO SCH (08:54)
[2016-06-23] MEDS: Sennosides/Docusate Sodium TABLET PO SCH (08:54)
[2016-06-23] MEDS: Insulin LISPRO 300 UNITS/3 ML VIAL SQ SCH ×2 (08:55→11:56)
[2016-06-23] MEDS: Insulin DETEMIR 100 UNIT/ML X5UNITS SQ SCH (08:56)
[2016-06-23] MEDS ORDERED: predniSONE 20 MG TABLET PO SCH (09:00)
--- NOTE | 2016-06-23 12:43 | Discharge Summary ---
Date of Encounter: 06/23/16 Time of Encounter: 10:00 - Discharge Diagnosis (1) Mitral stenosis Priority: Primary Status: Chronic Qualifiers: Cardiac valve disease etiology: etiology unspecified Qualified Code(s): I05.0 - Rheumatic mitral stenosis (2) Pneumonia Priority: Primary Status: Acute Qualifiers: Pneumonia type: due to unspecified organism Laterality: bilateral Lung location: unspecified part of lung Qualified Code(s): J18.9 - Pneumonia, unspecified organism (3) Sepsis Priority: Primary Status: Resolved Qualifiers: Sepsis type: sepsis due to unspecified organism Qualified Code(s): A41.9 - Sepsis, unspecified organism (4) Hyperglycemia Priority: Primary Status: Acute (5) Bilateral lower extremity edema Priority: Primary Status: Chronic (6) Hypoxemia Priority: Primary Status: Acute (7) COPD (chronic obstructive pulmonary disease) Priority: Primary Status: Acute Qualifiers: COPD type: emphysema Emphysema type: unspecified Qualified Code(s): J43.9 - Emphysema, unspecified (8) Diabetes Priority: Secondary Status: Chronic Qualifiers: Diabetes mellitus type: type 2 Diabetes mellitus complication status: with hyperglycemia Diabetes mellitus [employer] insulin use: without [employer] use Qualified Code(s): E11.65 - Type 2 diabetes mellitus with hyperglycemia (9) Hypertension Priority: Secondary Status: Chronic Qualifiers: Hypertension type: essential hypertension Qualified Code(s): I10 - Essential (primary) hypertension (10) Tobacco abuse Priority: Secondary Status: Chronic - Discharge Medications Prescriptions: Albuterol Neb [Proventil Neb] 2.5 mg IH Q4HR PRN 30 Days PRN Reason: Shortness Of Breath/Wheezing Furosemide [Lasix] 20 mg PO BIDDIURETIC #30 tablet Metoprolol [Lopressor] 25 mg PO BID #30 tablet Nebulizer [Aeroeclipse] 1 each MC Q4H PRN 30 Days PRN Reason: Shortness Of Breath/Wheezing Nebulizer Accessories [Sootheneb [id number] Adult Mask] 1 each MC Q4H PRN 30 Days PRN Reason: Shortness Of Breath/Wheezing Nebulizer Accessories [Sootheneb Wnw110 Mesh Cap] 1 each MC Q4H PRN 30 Days PRN Reason: Shortness Of Breath/Wheezing Nebulizer Accessories [Sootheneb [id number] Med Cup] 1 each MC Q4H PRN 30 Days PRN Reason: Shortness Of Breath/Wheezing Nicotine Patch [Nicoderm] 21 mg TD DAILY #20 patch.td24 PredniSONE 40 mg PO DAILY #10 tablet Home Medications: Albuterol Sulfate [Albuterol Inhaler] 2 puff IH Q4H PRN 06/17/16 [History] Aspirin Enteric Coated [Aspirin EC] 81 mg PO DAILY 06/17/16 [History] Benzonatate [Tessalon] 100 mg PO TID PRN 06/17/16 [History] Fenofibrate 54 mg PO DAILY 06/17/16 [History] Glimepiride [Amaryl] 4 mg PO BID 06/17/16 [History] Lisinopril [Zestril] 20 mg PO DAILY 06/17/16 [History] Metformin HCl 1,000 mg PO BID 06/17/16 [History] Pioglitazone [Actos] 15 mg PO DAILY 06/17/16 [History] Simvastatin [Zocor] 20 mg PO HS 06/17/16 [History] Tiotropium [place] [Spiriva] 18 mcg IH DAILY 06/17/16 [History] Albuterol Neb [Proventil Neb] 2.5 mg IH Q4HR PRN 30 Days 06/23/16 [Rx] Furosemide [Lasix] 20 mg PO BIDDIURETIC #30 tablet 06/23/16 [Rx] Metoprolol [Lopressor] 25 mg PO BID #30 tablet 06/23/16 [Rx] Nebulizer Accessories [Sootheneb [id number] Adult Mask] 1 each MC Q4H PRN 30 Days [Rx] Nebulizer Accessories [Sootheneb Zxv300 Med Cup] 1 each MC Q4H PRN 30 Days 06/23 [Rx] Nebulizer Accessories [Sootheneb [id number] Mesh Cap] 1 each MC Q4H PRN 30 Days 10/04 [Rx] Nebulizer [Aeroeclipse] 1 each MC Q4H PRN 30 Days 06/23/16 [Rx] Nicotine Patch [Nicoderm] 21 mg TD DAILY #20 patch.td24 06/23/16 [Rx] PredniSONE 40 mg PO DAILY #10 tablet 06/23/16 [Rx] Allergies/Adverse Reactions: Allergies levofloxacin [From Levaquin] Allergy (Verified 06/18/16 15:41) See Comments bilateral leg swelling Procedures/tests Complete & Pending: Procedures Performed prior 72 hours Category Date Time Status EV echocardiogram w enhance Routine Y 06/20/16 13:25 Completed Date of admission: 06/17/16 23:16 Primary care physician: Eddie Whitley Consults: 06/18/16 14:25 Consult to Invasive Line Access Team [CONS] Routine Reason for Consult: limited access Line Type: EPIV 06/19/16 11:16 PT [Consult to Physical Therapy] [CONS] Routine Comment: Evaluate, develop and implement POC 06/19/16 11:17 OT [Consult to Occupational Therapy] [CONS] Routine Comment: Evaluate, develop and implement POC 06/20/16 16:52 Consult to Ticket Chopper Assembler [CONS] Routine Reason for SW Consult: PT/OT recommending inpt rehab. Discharging clinician: Shona Whatley Anticipated date of discharge: 06/23/16 - Patient Status Disposition: Home Health Service Condition: Fair Functional capacity at discharge: uses cane/walker Overall status at discharge: patient is progressing back to baseline - Discharge Instructions Instructions: Diabetes Mellitus Type 2 in Adults (DC), Chronic Obstructive Pulmonary Disease (DC), Sepsis (DC), Chronic Hypertension (DC), Pneumonia (DC) Follow Up With: Eddie Whitley MD [Primary Care Provider] - 06/25/16 3:30 pm - Diet and Activity Activity: as per physical therapy, resume usual activities as tolerated, wear oxygen at all times Diet: diabetic diet, low fat, low cholesterol, low salt diet Hospital course: Ms. Conroy is a 71 year old female with COPD, admitted with worsening cough, dyspnea and leg swelling. Chest XRay showed no focal infiltrates. She reported ; eg swelling started with outpatient Levaquin and she was started on IV Doxycycline along with oral steroids, bronchodilators and supplemental O2 for acute COPD. She had decreased air entry B/L and steroids were changed to IV form with significant improvement. She was also noted to have uncontrolled blood sugars with blood sugars in 500s, not responding to subcutaneous insulin and she received IV insulin for a few hours with appropriate blood sugar control. She had fairly elevated sugars while on IV steroids and currently much improved. HbA1C was noted to be around 8.5%. Venous Doppler of B/L LE showed no e/o DVT. Echocardiogram was done which showed preserved EF, moderate-severe MS, mild LV diastolic dysfunction, mild concentric LVH, LAD. She was started on Lasix and Metoprolol with appropriate heart rate control and improvement in leg swelling. She was seen by PT and recommended rehab placement, which she declined and being discharged home with [facility], which needs to be completed by PCP office. She does require home O2 now and home O2 evaluation qualified her for atleast 3L/ min supplemental O2 via NC, continuous, and she would benefit from portable home O2; she is mobile at home. Smoking cessation was discussed and patient is motivated to quit smoking and is being discharged on Nicotine transdermal patches. - Time Spent with Patient Total time spent providing and/or coordinating discharge services: Greater than 30 minutes (55 min) - Constitutional Vitals: Temp Pulse Resp BP Pulse Ox 98.1 F 82 14 152/64 96 06/23/16 05:45 06/23/16 05:45 06/23/16 05:45 06/23/16 05:45 06/23/16 05:45 General appearance: Present: A&O X 3, obese, answers questions appropriately - Respiratory Respiratory exam: Present: CTAB (improved air entry B/L). Absent: accessory muscle use, rales, rhonchi, wheezes - Cardiovascular Cardiovascular exam: Present: RRR, +S1, +S2. Absent: diastolic murmur, gallop, rubs, systolic murmur - VTE Documentation of Mechanical Device: Intermittent pneumatic compression device
== END 2016-06-23 15:00 | disposition home health service (06) | DRG 871 ==
LOC: 2NENU 17:14 → EMEROO 17:14 → 2NENU 21:29
PROVIDERS: ADMIT Internal Medicine; ATTEND Internal Medicine

== ENCOUNTER 2016-07-11 16:11 | Inpatient (IN) ==
[2016-07-11 16:47] LABS: Basophils % 0.2 %; Eosinophils # 0.1 K/mcL (0.0-0.6); Eosinophils % 2.1 %; Hemoglobin 11.6 g/dL (11.5-15.4); Immature Granulocytes % 0.2 % (0-4); Lymphocytes # 0.9 K/mcL (0.6-4.6); Mean Corpuscular HGB Conc 32.2 g/dL (31.6-35.5); Mean Corpuscular Hemoglobin 28.1 pg (28.0-33.3); Mean Corpuscular Volume 87.2 fL (83.0-100.0); Monocytes # 0.6 K/mcL (0.0-1.3); Neutrophils # 3.7 K/mcL (1.6-8.9); Platelet Count 189 K/mcL (140-400); Red Blood Count 4.13 M/mcL (3.82-4.97); Red Cell Distribution Width 13.3 % (11.5-14.5); Segmented Neutrophils % 68.5 %
[2016-07-11 16:52] LABS: INR 1.1
[2016-07-11 16:54] LABS: Activated Partial Thrombo Time 28.8 Seconds (26.0-36.0)
[2016-07-11 16:59] LABS: Alanine Aminotransferase 17 Units/L (0-55); Albumin 3.1 g/dL (3.5-5.0); Albumin/Globulin Ratio 0.7 (1.1-2.2); Alkaline Phosphatase 55 Units/L (38-126); Aspartate Amino Transferase 16 Units/L (5-34); BUN/Creatinine Ratio 11 (6-26); Bilirubin,Total 0.7 mg/dL (0.2-1.2); Blood Urea Nitrogen 7 mg/dL (7-20); Calcium 9.6 mg/dL (8.6-10.8); Carbon Dioxide 31 mEq/L (19-29); Chloride 99 mEq/L (98-109); Globulin 4.2 g/dL (2.4-3.5); Glucose 142 mg/dL (70-99); Osmolality,Calculated 288 (280-300); Potassium 4.1 mEq/L (3.5-4.5); Sodium 139 mEq/L (136-145); Total Protein 7.3 g/dL (6.0-8.3); eGFR For African Americans > 60 (> 60); eGFR For Non-African Americans > 60 (> 60)
--- NOTE | 2016-07-11 17:01 | Emergency Department Note ---
Disposition Clinical Impression: Hypoxemia COPD (chronic obstructive pulmonary disease) Qualifiers: COPD type: COPD with acute exacerbation Qualified Code(s): J44.1 - Chronic obstructive pulmonary disease with (acute) exacerbation Disposition: Admitted As Inpatient Condition: Good SOB HPI - General Chief Complaint: ED Shortness of Breath/Dyspnea Stated Complaint: SOB/CP Time Seen by Provider: 07/11/16 16:49 Source: patient, EMS Mode of arrival: EMS Limitations: no limitations Nursing Notes Reviewed: Yes Vital Signs Reviewed: Yes - History of Present Illness Ms. Conroy is a 71 year old female that presents with worsening shortness of breath and chest heaviness for the past 3 days. Patient also notes increasing anxiety. Recent admission 06/17-06/23/16 for pneumonia and mitral stenosis; she states she was discharged with steroids and lasix. She states that for the first two weeks post discharge that she was feeling better, however the past three days she notes increasing shortness of breath and chest heaviness that is worst when she lays down at night. She states she has been very anxious with her over all health, feeling like "she has no control". She also notes that she developed bilateral LE edema with previous illness and this has yet to resolve. Patient notes home pulse ox report saturation of 85% and pulse on 120 which prompted her to contact EMS. Pt Subjective Complaint: shortness of breath, cough, chest pain, anxiety Context: recent illness Consistency/Duration: gradually worsening Improves with: upright position Worsens with: lying flat Known history of: COPD, other (recent pneumonia) Associated symptoms: Reports: chest pain, cough, sputum production. Denies: fever, nausea/vomiting Cough present: Yes Cough Description: Productive Cough Frequency: Intermittent Sputum production: Yes Sputum Color: Yellow - Related Data Home oxygen amount: 3 liters Home Medications Medication Instructions Recorded Confirmed Albuterol Sulfate [Albuterol 2 puff IH Q4H PRN 06/17/16 07/11/16 Inhaler] Aspirin Enteric Coated [Aspirin EC] 81 mg PO DAILY 06/17/16 07/11/16 Fenofibrate 54 mg PO DAILY 06/17/16 07/11/16 Glimepiride [Amaryl] 4 mg PO BID 06/17/16 07/11/16 Lisinopril [Zestril] 20 mg PO DAILY 06/17/16 07/11/16 Metformin HCl 1,000 mg PO BID 06/17/16 07/11/16 Pioglitazone [Actos] 15 mg PO DAILY 06/17/16 07/11/16 Simvastatin [Zocor] 20 mg PO HS 06/17/16 07/11/16 Tiotropium [place] [Spiriva] 18 mcg IH DAILY 06/17/16 07/11/16 Zolpidem Tartrate 5 mg PO HS 07/11/16 07/11/16 Previous Rx's Medication Instructions Recorded Albuterol Neb [Proventil Neb] 2.5 mg IH Q4HR PRN 30 Days 06/23/16 Furosemide [Lasix] 20 mg PO BIDDIURETIC #30 tablet 06/23/16 Metoprolol [Lopressor] 25 mg PO BID #30 tablet 06/23/16 Nicotine Patch [Nicoderm] 21 mg TD DAILY #20 patch.td24 06/23/16 Amoxicillin/Clavulanate [Augmentin] 875 mg PO BIDWM #5 tablet 07/17/16 Budesonide/Formoterol 160/4.5 2 puff IH BIDR #1 inhaler 07/17/16 [Symbicort 160/4.5] ClonazePAM [Klonopin] 0.25 mg PO BID #14 tablet 07/17/16 PredniSONE 10 mg PO DAILY #84 tablet 07/17/16 Allergies Allergy/AdvReac Type Severity Reaction Status Date / Time levofloxacin [From Levaquin] Allergy See Verified 06/18/16 15:41 Comments All systems ED: reviewed and negative except as stated. Constitutional: Denies: fever, chills Cardiovascular: Reports: chest pain, dyspnea on exertion, edema. Denies: syncope Respiratory: Reports: cough, dyspnea, sputum production Gastrointestinal: Denies: abdominal pain, nausea, vomiting, diarrhea, constipation Neurological: Reports: weakness. Denies: confusion Psychiatric: Reports: anxiety, depression Endocrine: Reports: fatigue Past Medical History - Past Medical History Attestation: Yes The following information was validated with the patient. Source: patient Medical history: Reports: COPD, diabetes, hyperlipidemia, hypertension Psychiatric history: Reports: anxiety, depression - Social History Smoking Status: Former smoker Smokeless Tobacco Status: No Alcohol use: Reports: none Drug use: Reports: none Physical Exam - General Limitations: no limitations General appearance: alert, in no apparent distress, anxious - Head Head exam: atraumatic, normocephalic - Eye Eye exam: Present: normal appearance, PERRL, EOMI - ENT ENT exam: normal exam, normal oropharynx, mucous membranes moist - Neck Neck exam: Present: normal inspection, full ROM - Chest Chest inspection: Present: normal inspection, symmetric chest wall rise - Respiratory Respiratory exam: Present: other (decreased aeration). Absent: respiratory distress, wheezes, stridor - Cardiovascular Cardiovascular exam: Present: tachycardia, +S1, +S2 - Abdominal Exam Abdominal exam: Present: soft, Non-Tender, normal bowel sounds. Absent: guarding, rebound - Extremities Exam Extremities exam: Present: pedal edema. Absent: tenderness - Neurological Exam Neurological exam: Present: alert, oriented X3 - Psychiatric Psychiatric exam: Present: anxious - Skin Skin exam: Present: warm, dry, intact Course - Reevaluation(s) Reevaluation #1: History of COPD and recent pneumonia, patient given duoneb treatment. States she feel slightly better with breathing treatment, current saturation at 94% on 3L. Patient stated she was only given lasix for 1 week post discharge. Will give 40mg IV lasix and re-evaluate. Patient states she is still very anxious and pulse rate in current 100. Time: 18:17 Reevaluation #2: Patient states she is breathing slightly better, however she notes being very anxious. Pulse range 110-150. Patient agreeable to medication for anxiety. Giving 1mg Ativan and will re-evaluate. Time: 19:00 Reevaluation #3: Patient oxygenation maintaining at approx 88-92% on 4L oxygen. HR continues to be labile. Patient agreeable to CT chest and possible admission. Time: 19:55 - Consultations Consultation #1: Spoke with Dr. Machado, hospitalist, whom agreed to accept patient pending CTA chest. Patient and her aware of pending admission. Time: 21:01 Vital Signs Temperature 98.1 F 07/11/16 16:13 Pulse Rate 104 07/11/16 16:13 Respiratory Rate 26 07/11/16 16:13 Blood Pressure 144/75 07/11/16 16:13 O2 Sat by Pulse Oximetry 91 L 07/11/16 16:13 Temperature 98.0 F 07/17/16 11:12 Pulse Rate 77 07/17/16 11:12 Respiratory Rate 16 07/17/16 11:12 Blood Pressure 143/70 07/17/16 11:12 O2 Sat by Pulse Oximetry 95 07/17/16 11:12 Oxygen Delivery Oxygen Delivery Nasal Cannula Shortness of Breath/Dyspnea - Differential Diagnosis Likely: acute exacerbation of chronic obstructive airways disease, congestive heart failure, pneumonia - Medical Records Medical records reviewed: Yes I reviewed the patient's medical records. - Lab Data Lab results reviewed: Yes I reviewed the patient's lab results. Result diagrams: 07/14/16 04:07 07/15/16 07:34 Lab Results 07/11/16 07/11/16 07/11/16 Range/Units 16:32 16:32 16:32 WBC 5.4 (4.3-11.1) K/mcL RBC 4.13 (3.82-4.97) M/mcL Hgb 11.6 (11.5-15.4) g/dL Hct 36.0 (35.3-44.9) % MCV 87.2 (83.0-100.0) fL MCH 28.1 (28.0-33.3) pg MCHC 32.2 (31.6-35.5) g/dL RDW 13.3 (11.5-14.5) % Plt Count 189 (140-400) K/mcL MPV 10.0 (9.4-12.4) fL Immature Gran % 0.2 (0-4) % Seg Neutrophils % 68.5 % Lymphocytes % 17.0 % Monocytes % 12.0 % Eosinophils % 2.1 % Basophils % 0.2 % Neutrophils # 3.7 (1.6-8.9) K/mcL Lymphocytes # 0.9 (0.6-4.6) K/mcL Monocytes # 0.6 (0.0-1.3) K/mcL Eosinophils # 0.1 (0.0-0.6) K/mcL Basophils # 0.0 (0.0-0.2) K/mcL PT 12.0 (9.4-12.1) Seconds INR 1.1 APTT 28.8 (26.0-36.0) Seconds Sodium 139 (136-145) mEq/L Potassium 4.1 (3.5-4.5) mEq/L Chloride 99 (98-109) mEq/L Carbon Dioxide 31 H (19-29) mEq/L BUN 7 (7-20) mg/dL Creatinine 0.66 (0.57-1.11) mg/dL Est GFR ( Amer) > 60 (> 60) Est GFR (Non-Af Amer) > 60 (> 60) BUN/Creatinine Ratio 11 (6-26) Glucose 142 H (70-99) mg/dL Calculated Osmolality 288 (280-300) Lactic Acid (0.5-2.2) mmol/L Calcium 9.6 (8.6-10.8) mg/dL Total Bilirubin 0.7 (0.2-1.2) mg/dL AST 16 (5-34) Units/L ALT 17 (0-55) Units/L Alkaline Phosphatase 55 (38-126) Units/L Troponin I (0-0.03) ng/mL B-Natriuretic Peptide (0-100) pg/mL Serum Total Protein 7.3 (6.0-8.3) g/dL Albumin 3.1 L (3.5-5.0) g/dL Globulin 4.2 H (2.4-3.5) g/dL Albumin/Globulin Ratio 0.7 L (1.1-2.2) 07/11/16 07/11/16 07/11/16 Range/Units 16:32 16:32 16:32 WBC (4.3-11.1) K/mcL RBC (3.82-4.97) M/mcL Hgb (11.5-15.4) g/dL Hct (35.3-44.9) % MCV (83.0-100.0) fL MCH (28.0-33.3) pg MCHC (31.6-35.5) g/dL RDW (11.5-14.5) % Plt Count (140-400) K/mcL MPV (9.4-12.4) fL Immature Gran % (0-4) % Seg Neutrophils % % Lymphocytes % % Monocytes % % Eosinophils % % Basophils % % Neutrophils # (1.6-8.9) K/mcL Lymphocytes # (0.6-4.6) K/mcL Monocytes # (0.0-1.3) K/mcL Eosinophils # (0.0-0.6) K/mcL Basophils # (0.0-0.2) K/mcL PT (9.4-12.1) Seconds INR APTT (26.0-36.0) Seconds Sodium (136-145) mEq/L Potassium (3.5-4.5) mEq/L Chloride (98-109) mEq/L Carbon Dioxide (19-29) mEq/L BUN (7-20) mg/dL Creatinine (0.57-1.11) mg/dL Est GFR ( Amer) (> 60) Est GFR (Non-Af Amer) (> 60) BUN/Creatinine Ratio (6-26) Glucose (70-99) mg/dL Calculated Osmolality (280-300) Lactic Acid 1.1 (0.5-2.2) mmol/L Calcium (8.6-10.8) mg/dL Total Bilirubin (0.2-1.2) mg/dL AST (5-34) Units/L ALT (0-55) Units/L Alkaline Phosphatase (38-126) Units/L Troponin I 0.01 (0-0.03) ng/mL B-Natriuretic Peptide 100 (0-100) pg/mL Serum Total Protein (6.0-8.3) g/dL Albumin (3.5-5.0) g/dL Globulin (2.4-3.5) g/dL Albumin/Globulin Ratio (1.1-2.2) - Radiology Data Radiology results reviewed: Yes I reviewed the patient's radiology results. Chest X-Ray 07/11/16 16:31 IMPRESSION: Increased interstitial opacity in the parahilar regions and lung bases likely representing edema. Pneumonia/infiltrate not excluded. D/ / Nazia Russo MD / Nazia Russo MD Interpreting Provider: Nazia Russo MD - EKG Data EKG attestation: Yes I reviewed and interpreted this EKG. EKG shows normal: Reports: sinus rhythm Rate: Reports: tachycardia Rhythm: Reports: PVC's When compared to previous EKG there are: changes noted (PVCs noted) Critical Care Time Total Critical Care Time: 45 Attestation: Critical care performed: Time is exclusive of separately billable procedures. Time includes: direct patient care, patient reassessment, coordination of patient care, interpretation of data (laboratory data, radiology data, and respiratory data), review of patient's medical records, medical consultation and documentation of patient care. Procedures included in critical care time: Procedures excluded from critical care time: Attestation Statement - Attestation Attestation: I examined this patient and my medical decision-making was reviewed with the RUNNER WORKER/PA/Advanced Practice Nurse/Resident Physician. I agree with the documented findings, disposition and treatment plan as described except to the extent set forth below. Patient presents with complaint shortness of breath has been going on for 2-3 days. Patient was recently admitted for pneumonia States she got better after this illness. Patient developed more swelling. Patient workup was negative per COPD exacerbation. Patient improved with therapy were department and will be admitted to the hospitalist service for further care and workup.
[2016-07-11] MEDS ORDERED: Ipratropium/Albuterol Neb 3 ML IH ONE ×2 (17:39→20:43)
[2016-07-11] MEDS ORDERED: Furosemide 40 MG/4 ML VIAL IVP ONE (18:16)
[2016-07-11] MEDS ORDERED: *HR* LORazepam 2 MG/ML VIAL IVP ONE (19:03)
--- NOTE | 2016-07-11 23:13 | Internal Med History&Physical ---
Date of Encounter: 07/11/16 Time of Encounter: 23:11 Assessment and Plan (1) COPD with exacerbation Current visit: Yes Status: Acute Patient with underlying COPD on long-term oxygen therapy admitted due to COPD exacerbation. No evidence for pulmonary embolism. Afebrile, no leukocytosis. Continue with systemic steroids, nebulizer therapy. Oxygen supplementation. DVT prophylaxis. We will obtain a consultation with web content & social media manager. (2) Hypertension Current visit: No Status: Chronic Continue monitoring the patient closely. Qualifiers: Hypertension type: essential hypertension Qualified Code(s): I10 - Essential (primary) hypertension Internal Medicine - H&P: HPI Chief complaint: SOB Admitted From: Emergency Dept Plans for Post Hospital Care: Home History of present illness: Ms. Conroy is a 71 year old female with past medical history of chronic obstructive pulmonary disease, on long-term oxygen therapy, recent admission to this facility due to pneumonia, former smoker. He used to smoke 1-1/2 packs daily for at least 50 years until she quit a month ago. Patient presented to our emergency department complaining of progressive shortness of breath, wheezing, productive cough along with substernal chest pain which started 4 days ago and has been getting worse. Upon evaluation in the emergency department she was also tachycardic. There was a concern for a pulmonary embolism and CT angiography the chest rule out blood clot. There was some concerning for pneumonia, however this is likely a residual effect of her prior pneumonia. No leukocytosis or fever. The patient was admitted for further management and workup. Past Med Surg Social Fam HX - Past Medical History Medical history: COPD, diabetes, hyperlipidemia, hypertension Psychiatric history: anxiety, depression - Social History Smoking Status: Former smoker Smokeless Tobacco Status: No Alcohol use: none Drug use: none - Family History Mother Hx Family Respiratory Disorders: Yes (copd) Hx Family Cancer: Yes (colon) Internal Medicine - H&P: Meds Albuterol Sulfate [Albuterol Inhaler] 2 puff IH Q4H PRN 06/17/16 [History] Aspirin Enteric Coated [Aspirin EC] 81 mg PO DAILY 06/17/16 [History] Fenofibrate 54 mg PO DAILY 06/17/16 [History] Glimepiride [Amaryl] 4 mg PO BID 06/17/16 [History] Lisinopril [Zestril] 20 mg PO DAILY 06/17/16 [History] Metformin HCl 1,000 mg PO BID 06/17/16 [History] Pioglitazone [Actos] 15 mg PO DAILY 06/17/16 [History] Simvastatin [Zocor] 20 mg PO HS 06/17/16 [History] Tiotropium [place] [Spiriva] 18 mcg IH DAILY 06/17/16 [History] Albuterol Neb [Proventil Neb] 2.5 mg IH Q4HR PRN 30 Days 06/23/16 [Rx] Furosemide [Lasix] 20 mg PO BIDDIURETIC #30 tablet 06/23/16 [Rx] Metoprolol [Lopressor] 25 mg PO BID #30 tablet 06/23/16 [Rx] Nicotine Patch [Nicoderm] 21 mg TD DAILY #20 patch.td24 06/23/16 [Rx] Zolpidem Tartrate [Zolpidem Tartrate] 5 mg PO HS 07/11/16 [History] Allergies levofloxacin [From Levaquin] Allergy (Verified 06/18/16 15:41) See Comments bilateral leg swelling All Systems PM: A 10-system review of systems was performed and is negative for pertinent findings except as documented above in the HPI. - Constitutional Constitutional: as per HPI, no chills, no fever(s), no night sweats - EENT Eyes: as per HPI, no change in vision, no discharge, no pain, no photophobia Ears: as per HPI, no ear discharge, no ear pain, no tinnitus Nose, mouth and throat: as per HPI, no dysphagia, no nasal discharge, no neck pain, no sore throat - Breasts Breasts: as per HPI - Cardiovascular Cardiovascular ROS IM: chest pain, dyspnea, dyspnea on exertion, no diaphoresis , no lightheadedness, no palpitations, no syncope - Respiratory Respiratory: cough, dyspnea on exertion, wheezing, no dyspnea, no excessive phlegm production - Gastrointestinal Gastrointestinal: as per HPI, no abdominal pain, no diarrhea, no hematemesis, no hematochezia, no melena, no nausea, no vomiting - Genitourinary Genitourinary: as per HPI, no change in urinary stream, no dysuria, no flank pain, no hematuria Menstruation: as per HPI - Musculoskeletal Musculoskeletal ROS IM: as per HPI, no numbness, no tingling - Integumentary Integumentary IM: as per HPI, no rash, no unusual bruising - Neurological Neurological ROS: as per HPI, no confusion, no convulsions, no focal weakness, no numbness, no tingling, no tremor(s) - Psychiatric Psychiatric: as per HPI - Endocrine Endocrine IM: as per HPI - Hematologic/Lymphatic Hematologic/Lymphatic: as per HPI, no easy bruising - Allergic/Immunologic Allergic/Immunologic: as per HPI - Constitutional Vitals: Temp Pulse Resp BP Pulse Ox 98.1 F 112 20 112/77 92 L 07/11/16 16:13 07/11/16 20:32 07/11/16 22:04 07/11/16 22:04 07/11/16 21:04 General appearance: Present: mild distress, A&O X 3, morbidly obese, pleasant - Head Head exam: Present: atraumatic, normocephalic - Eye Eye exam: Present: PERRL, conjuntiva pink, sclera anicteric Pupils: Present: PERRL - Neck Neck exam general surgery: Present: supple, trachea midline. Absent: lymphadenopathy - Respiratory Respiratory exam: Present: decreased breath sounds, wheezes. Absent: accessory muscle use, rales, rhonchi - Cardiovascular Cardiovascular exam: Present: RRR, +S1, +S2, tachycardia. Absent: diastolic murmur, gallop, rubs, systolic murmur - GI/Abdominal GI/Abdominal exam: Present: normal bowel sounds, soft, no peritoneal signs. Absent: distended, tenderness - Extremities Exam Extremities exam: Present: warm, radial pulses palpable and symetrical. Absent : calf tenderness, cyanotic, pedal edema - Neurological Exam Neurological exam: Present: CN II-XII intact, oriented X3, no focal deficits. Absent: pronater drift, facial droop, speech deficit - Skin Skin exam: Present: dry, intact Internal Med - H&P Results - Labs CBC & Chem 7: 07/11/16 16:32 07/11/16 16:32
[2016-07-11] MEDS ORDERED: Albuterol 2.5 MG/3 ML NEBULIZER IH PRN (23:18)
[2016-07-11] MEDS ORDERED: Naloxone 0.4 MG/ML INJ IVP PRN (23:18)
[2016-07-11] MEDS ORDERED: Ondansetron 4 MG/2 ML VIAL IVP PRN (23:18)
[2016-07-11] MEDS ORDERED: Acetaminophen 325 MG TABLET PO PRN (23:18)
[2016-07-11] MEDS ORDERED: Dextrose Gel 15 GM PO PRN ×2 (23:23)
[2016-07-11] MEDS ORDERED: *HR* Dextrose 50 % in Water (Syg) 50 ML SYRINGE IVP PRN (23:23)
[2016-07-11] MEDS ORDERED: D5% in Water 1,000 ML IVC PRN (23:23)
[2016-07-11] MEDS: Ipratropium/Albuterol Neb 3 ML IH SCH (23:54)
[2016-07-11] MEDS: MethylPREDNISolone 40 MG/ML VIAL IVP SCH (23:57)
[2016-07-12 01:07] LABS: Basophils % 0.2 %; Eosinophils # 0.1 K/mcL (0.0-0.6); Eosinophils % 2.5 %; Hematocrit 35.4 % (35.3-44.9); Hemoglobin 11.4 g/dL (11.5-15.4); Immature Granulocytes % 0.5 % (0-4); Lymphocytes # 1.1 K/mcL (0.6-4.6); Lymphocytes % 25.2 %; Mean Corpuscular HGB Conc 32.2 g/dL (31.6-35.5); Mean Corpuscular Hemoglobin 28.1 pg (28.0-33.3); Mean Corpuscular Volume 87.2 fL (83.0-100.0); Mean Platelet Volume 10.1 fL (9.4-12.4); Monocytes # 0.6 K/mcL (0.0-1.3); Monocytes % 13.2 %; Neutrophils # 2.6 K/mcL (1.6-8.9); Platelet Count 188 K/mcL (140-400); Red Blood Count 4.06 M/mcL (3.82-4.97); Red Cell Distribution Width 13.3 % (11.5-14.5); Segmented Neutrophils % 58.4 %
[2016-07-12 01:24] LABS: Alanine Aminotransferase 16 Units/L (0-55); Albumin 2.9 g/dL (3.5-5.0); Albumin/Globulin Ratio 0.7 (1.1-2.2); Alkaline Phosphatase 50 Units/L (38-126); Aspartate Amino Transferase 14 Units/L (5-34); BUN/Creatinine Ratio 13 (6-26); Bilirubin,Total 0.6 mg/dL (0.2-1.2); Blood Urea Nitrogen 10 mg/dL (7-20); Calcium 9.1 mg/dL (8.6-10.8); Carbon Dioxide 31 mEq/L (19-29); Chloride 97 mEq/L (98-109); Glucose 223 mg/dL (70-99); Magnesium 1.2 mg/dL (1.6-2.6); Osmolality,Calculated 294 (280-300); Sodium 139 mEq/L (136-145); Total Protein 6.9 g/dL (6.0-8.3); eGFR For African Americans > 60 (> 60); eGFR For Non-African Americans > 60 (> 60)
[2016-07-12 01:42] LABS: Anisocytosis 1+ (Not Present); Microcytosis Present (Not Present)
[2016-07-12 01:43] LABS: Reactive Lymphocytes Present (Not Present)
[2016-07-12 01:44] LABS: Platelet Estimate Normal (Normal)
[2016-07-12] MEDS: Ipratropium/Albuterol Neb 3 ML IH SCH ×4 (04:23→22:36)
[2016-07-12] MEDS: *HR* Heparin 5,000 UNIT/ML VIAL SQ SCH ×2 (06:21→17:38)
[2016-07-12] MEDS: Famotidine 20 MG/2 ML VIAL IVP SCH ×2 (06:21→17:37)
[2016-07-12] MEDS: Insulin DETEMIR 100 UNIT/ML X5UNITS SQ SCH ×2 (08:51→22:19)
[2016-07-12] MEDS: MethylPREDNISolone 40 MG/ML VIAL IVP SCH ×2 (08:51→16:22)
[2016-07-12] MEDS: Aspirin 81 MG TAB.CHEW PO SCH (08:51)
[2016-07-12] MEDS: Insulin LISPRO 300 UNITS/3 ML VIAL SQ SCH ×3 (09:01→17:38)
[2016-07-12] MEDS ORDERED: *HR* HYDROcodone/Acet 5/325 mg TABLET PO PRN (16:32)
[2016-07-12] MEDS ORDERED: *HR* Morphine 2 MG/ML SYRINGE IVP PRN (16:32)
[2016-07-12] MEDS ORDERED: Insulin LISPRO 300 UNITS/3 ML VIAL SQ SCH ×3 (16:36→21:00)
[2016-07-12] MEDS ORDERED: Ondansetron 4 MG/2 ML VIAL IVP PRN (16:36)
--- NOTE | 2016-07-12 16:37 | Internal Med Progress Note ---
Date of Encounter: 07/12/16 Time of Encounter: 15:30 (x45 minutes) - Assessment and plan (1) Pneumonia Current Visit: No Status: Acute Assessment and plan: Chest CT revealing multifocal pneumonia, multiple groundglass and nodular opacities as well as a spiculated nodule and mild mediastinal lymphadenopathy. It appears as if the pneumonia patient had from her most prior admission where she was discharged approximately 3 weeks ago does not appear to have resolved. Mucous plugging also noted to left lower lobe. Pulmonology brought on board for possible consideration of bronchoscopy at their discretion. We will make patient nothing by mouth tonight and have pulmonology see her tomorrow. We will continue to treat for hospital-acquired pneumonia of unknown etiology at this time with Vanco and Zosyn. She was treated with doxycycline during her last admission. On examination, patient with fair aeration and mild to moderate respiratory distress. Coarse crackles noted bilateral posterior lung rome. ITS Impressions Chest X-Ray 07/11/16 16:31 IMPRESSION: Increased interstitial opacity in the parahilar regions and lung bases likely representing edema. Pneumonia/infiltrate not excluded. D/ / Nazia Russo MD / Nazia Russo MD Interpreting Provider: Nazia Russo MD Chest CTA 07/11/16 19:51 IMPRESSION: No PE identified. Patchy nodular infiltrates within the left lung with trace left pleural effusion. Correlate for pneumonia. Pulmonary emphysema with spiculated nodule within the right upper lobe. Recommend further workup. RECOMMENDATIONS: Fleischner Society guidelines for follow-up and management of pulmonary nodules: Nodule size greater than 8 mm In low-risk and high-risk patients follow-up CT at around 3, 9, and 24 months, dynamic contrast-enhanced CT, PET, and/or biopsy. Low risk patients include individuals with minimal or absent history of smoking and other known risk factors. High risk patients include individuals with a history of smoking or other known risk factors. Radiology 2005; [id number] D/ / Сергей Mondragon MD / Сергей Mondragon MD Interpreting Provider: Сергей Mondragon MD Chest CT 07/12/16 08:34 IMPRESSION: 1. Small left pleural effusion with multifocal airspace consolidation within the lingula and left lower lobe, most likely multifocal pneumonia. 2. Multiple ground-glass and nodular opacities within the left upper lobe are felt to be infectious or inflammatory in etiology, likely the continuum of the patient's multifocal pneumonia. Metastatic disease is considered less likely, though not excluded. 3. Persistent 1.8 x 1.0 cm spiculated nodule within the right lung apex, highly concerning for primary pulmonary malignancy. Consider a follow-up PET-CT study to evaluate the metabolic nature of this abnormality. 4. Mild mediastinal lymphadenopathy, which could represent metastatic disease, and this could also be assessed on a PET-CT study. D/ / 07/12/2016 15:28:55 Daryl Quiñonez MD / joel Interpreting Provider: Daryl Quiñonez MD Qualifiers: Pneumonia type: due to unspecified organism Laterality: bilateral Lung location: unspecified part of lung Qualified Code(s): J18.9 - Pneumonia, unspecified organism (2) COPD with exacerbation Current Visit: Yes Status: Acute (3) Lung mass Current Visit: Yes Status: Acute Assessment and plan: Spiculated lung mass noted on imaging with suspicious mediastinal lymphadenopathy. Follow-up outpatient with oncology for PET scanning (4) Acute and chronic respiratory failure Current Visit: Yes Status: Acute Assessment and plan: Patient was started on supplemental oxygenation during her most recent admission last week. She is currently on 3 L per nasal cannula continuously. We will continue to trend. Patient is very concerned that she does not want to be on oxygen the rest of her life. (5) Anxiety about health Current Visit: Yes Status: Acute Assessment and plan: Patient is extremely anxious and has several questions regarding whether or not her oxygen will be for the rest of her life, whether or not she is currently less fatigued in the sick the rest of her life. She is very concerned that she is not able to be active and do her activities of daily living and she is extremely anxious with several questions. We will start her on clonazepam with IV Ativan for breakthrough anxiety. discussing her concerns for nearly 45 minutes, the patient was much calmer but remained anxious with full body tremors. (6) Diabetes Current Visit: No Status: Chronic Assessment and plan: A1c 8.5%. Currently uncontrolled secondary to steroid administration, sliding scale increased, we will continue to trend. Of note, during patient's last admission from earlier this month, she had to be placed on IV insulin as subcutaneous insulin was not effective in bringing her glucoses down. We will see how she does with the increase sliding scale as well as basal and transition to insulin drip if needed. (7) COPD (chronic obstructive pulmonary disease) Current Visit: Yes Status: Chronic Qualifiers: COPD type: COPD with acute exacerbation Qualified Code(s): J44.1 - Chronic obstructive pulmonary disease with (acute) exacerbation (8) Hypertension Current Visit: No Status: Chronic Assessment and plan: Controlled. At home, she is on metoprolol 25 mg twice a day, lisinopril 20 mg daily, furosemide 20 mg twice a day. Her metoprolol and her lisinopril have been continued. Qualifiers: Hypertension type: essential hypertension Qualified Code(s): I10 - Essential (primary) hypertension (9) Tobacco abuse Current Visit: No Status: Chronic Assessment and plan: Patient used to smoke 1-1/2 packs per day for 50 years and stopped last month. No cigarettes in 1 month. (10) Diastolic heart failure Current Visit: Yes Status: Chronic Assessment and plan: Patient had an echocardiogram at the beginning of this month on 06/20/16 and revealed an ejection fraction of 65-70% with mild diastolic dysfunction. She is on furosemide at home. Appears euvolemic on examination. No pedal edema. Chronic diastolic heart failure without acute exacerbation. - Time Spent With Patient Greater than 35 minutes (discussed her feelings, plan of care) - Subjective Interval history: Patient seen and examined upon her return from imaging. On examination, patient is sitting upright on the side of her bed. She is trembling and states that she is extremely anxious about plan of care, "what is going on", and what is going to happen next. She is very concerned that she is now on oxygen and she is very concerned to the major decrease in her quality of life and ability to do activities of daily living and staying active but she has noticed over the past couple weeks. Her is at the bedside. - Constitutional Vitals: Temp Pulse Resp BP Pulse Ox 98.1 F 101 20 129/70 91 L 07/12/16 14:57 07/12/16 14:57 07/12/16 14:57 07/12/16 14:57 07/12/16 14:57 General appearance: Present: mild distress (moderate), A&O X 3, morbidly obese, pleasant, answers questions appropriately - Head Head exam: Present: atraumatic, normocephalic - Eye Eye exam: Present: PERRL, conjuntiva pink, sclera anicteric Pupils: Present: PERRL - Neck Neck exam general surgery: Present: supple, trachea midline. Absent: lymphadenopathy - Respiratory Respiratory exam: Present: accessory muscle use, decreased breath sounds, prolonged expiratory phase, respiratory distress, rhonchi. Absent: rales, wheezes - Cardiovascular Cardiovascular exam: Present: RRR, +S1, +S2, tachycardia. Absent: diastolic murmur, gallop, rubs, systolic murmur - GI/Abdominal GI/Abdominal exam: Present: normal bowel sounds, soft, no peritoneal signs. Absent: distended, tenderness - Extremities Exam Extremities exam: Present: warm, radial pulses palpable and symetrical. Absent : calf tenderness, cyanotic, pedal edema - Neurological Exam Neurological exam: Present: alert, CN II-XII intact, oriented X3, no focal deficits, strengths equal and symetr throughout. Absent: pronater drift, facial droop, speech deficit - Psychiatric Psychiatric exam: Present: anxious - Expanded Psychiatric Exam Focused psych exam: Present: perseverating, psychomotor agitation, restlessness - Skin Skin exam: Present: dry, intact, pallor, warm Internal Medicine: Result - Labs CBC & Chem 7: 07/12/16 00:44 07/12/16 00:44 Labs: Short CBC 07/12/16 Range/Units 00:44 WBC 4.4 (4.3-11.1) K/mcL Hgb 11.4 L (11.5-15.4) g/dL Hct 35.4 (35.3-44.9) % Plt Count 188 (140-400) K/mcL Neutrophils # 2.6 (1.6-8.9) K/mcL BMP 07/12/16 00:44 Sodium 139 Potassium 4.0 Chloride 97 L Carbon Dioxide 31 H BUN 10 Creatinine 0.80 Glucose 223 H Calcium 9.1 Cardiac Enzymes 07/12/16 07/12/16 Range/Units 00:44 06:58 Troponin I 0.01 0.01 (0-0.03) ng/mL Liver Function 07/12/16 Range/Units 00:44 Total Bilirubin 0.6 (0.2-1.2) mg/dL AST 14 (5-34) Units/L ALT 16 (0-55) Units/L Alkaline Phosphatase 50 (38-126) Units/L Albumin 2.9 L (3.5-5.0) g/dL - ABG Interpretation ABG results: PT/INR, D-dimer PT 12.0 Seconds (9.4-12.1) 07/11/16 16:32 - Impressions Impressions Chest CT 07/12/16 08:34 IMPRESSION: 1. Small left pleural effusion with multifocal airspace consolidation within the lingula and left lower lobe, most likely multifocal pneumonia. 2. Multiple ground-glass and nodular opacities within the left upper lobe are felt to be infectious or inflammatory in etiology, likely the continuum of the patient's multifocal pneumonia. Metastatic disease is considered less likely, though not excluded. 3. Persistent 1.8 x 1.0 cm spiculated nodule within the right lung apex, highly concerning for primary pulmonary malignancy. Consider a follow-up PET-CT study to evaluate the metabolic nature of this abnormality. 4. Mild mediastinal lymphadenopathy, which could represent metastatic disease, and this could also be assessed on a PET-CT study. D/ / 07/12/2016 15:28:55 Daryl Quiñonez MD / joel Interpreting Provider: Daryl Quiñonez MD Consult Discharge Plan - Plan Referrals: Eddie Whitley MD [Primary Care Provider] -
[2016-07-12] MEDS ORDERED: Vancomycin 1,500 MG in D5% in Water 250 ML IVPB SCH (17:00)
[2016-07-12] MEDS: clonazePAM 0.5 MG TABLET PO SCH ×2 (17:38→22:18)
[2016-07-12] MEDS: Piperacillin/Tazobactam 3.375 GM in D5% in Water (Mini-Bag+) 100 ML IVPB SCH (17:38)
[2016-07-12] MEDS: Vancomycin 1,500 MG in D5% in Water 250 ML IVPB SCH (22:17)
[2016-07-13] MEDS: Piperacillin/Tazobactam 3.375 GM in D5% in Water (Mini-Bag+) 100 ML IVPB SCH ×4 (00:35→19:29)
[2016-07-13] MEDS: MethylPREDNISolone 40 MG/ML VIAL IVP SCH ×3 (00:36→17:12)
[2016-07-13] MEDS: *HR* LORazepam 2 MG/ML VIAL IVP PRN (03:03)
[2016-07-13] MEDS: Ipratropium/Albuterol Neb 3 ML IH SCH ×4 (04:21→22:10)
[2016-07-13 04:48] LABS: Basophils % 0.1 %; Hematocrit 31.2 % (35.3-44.9); Hemoglobin 10.3 g/dL (11.5-15.4); Immature Granulocytes % 0.4 % (0-4); Lymphocytes # 0.8 K/mcL (0.6-4.6); Lymphocytes % 9.6 %; Mean Corpuscular Hemoglobin 28.5 pg (28.0-33.3); Mean Corpuscular Volume 86.2 fL (83.0-100.0); Mean Platelet Volume 10.4 fL (9.4-12.4); Monocytes # 0.5 K/mcL (0.0-1.3); Monocytes % 5.9 %; Neutrophils # 6.9 K/mcL (1.6-8.9); Platelet Count 216 K/mcL (140-400); Red Blood Count 3.62 M/mcL (3.82-4.97); Red Cell Distribution Width 13.2 % (11.5-14.5)
[2016-07-13 05:05] LABS: BUN/Creatinine Ratio 25 (6-26); Calcium 8.9 mg/dL (8.6-10.8); Carbon Dioxide 29 mEq/L (19-29); Chloride 96 mEq/L (98-109); Glucose 416 mg/dL (70-99); Osmolality,Calculated 305 (280-300); Sodium 137 mEq/L (136-145); eGFR For African Americans > 60 (> 60); eGFR For Non-African Americans > 60 (> 60)
[2016-07-13 05:09] LABS: Blood Urea Nitrogen 21 mg/dL (7-20)
[2016-07-13 05:16] LABS: Platelet Estimate Normal (Normal)
[2016-07-13] MEDS: *HR* Heparin 5,000 UNIT/ML VIAL SQ SCH ×2 (06:01→17:12)
[2016-07-13] MEDS: Insulin LISPRO 300 UNITS/3 ML VIAL SQ SCH ×4 (08:17→21:01)
[2016-07-13] MEDS: Lisinopril 20 MG TABLET PO SCH (08:24)
[2016-07-13] MEDS: clonazePAM 0.5 MG TABLET PO SCH ×2 (08:24→21:01)
[2016-07-13] MEDS: Aspirin 81 MG TAB.CHEW PO SCH (08:24)
[2016-07-13] MEDS: Insulin DETEMIR 100 UNIT/ML X5UNITS SQ SCH ×2 (08:39→21:02)
--- NOTE | 2016-07-13 10:37 | Pulmonology Consult Note ---
Date of Encounter: 07/13/16 Time of Encounter: 09:15 Assessment and Plan (1) COPD with exacerbation Current Visit: Yes Status: Acute I have explained to the patient this is most likely uncontrolled COPD and recurrent COPD exacerbation is well known it can happen within 4-6 weeks from previous COPD exacerbation. She is on appropriate treatment at this time with systemic steroid and bronchodilators. I added Symbicort. I have explained to have she needs to follow up as outpatient with our clinic and she will need pulmonary function test and pulmonary rehab. (2) Acute and chronic respiratory failure Current Visit: Yes Status: Acute Continue current treatment and keep his PO2 around 90% Qualifiers: Respiratory failure complication: unspecified whether with hypoxia or hypercapnia Qualified Code(s): J96.20 - Acute and chronic respiratory failure , unspecified whether with hypoxia or hypercapnia (3) Nodule of apex of right lung Current Visit: Yes Status: Chronic This is highly suspicious for primary lung cancer with her strong history of smoking. I have spent a long time with patient in the presence of the nurse and explained to her about bronchoscopy and all the risk, alternatives, benefits of the procedure. Patient wants to think about it more and then she will decide about whether she wants to have it done or not. I have explained to have as an outpatient she will need a PET scan and even EBUS/navigation bronchoscopy. This is discussed with primary team and thank you for the consultation. (4) Anxiety about health Current Visit: Yes Status: Chronic History of Present Illness Consult date: 07/13/16 Requesting physician: Mer Glez Reason for consult: dyspnea, pneumonia Chief complaint: Shortness of breath History of present illness: This is a pleasant 71-year-old female with significant smoking history and recently quit about 3 weeks ago. Patient has been feeling more short of breath with productive cough and wheezing. She stated she use oxygen at home. She had progressive dyspnea with wheezing and productive cough as well as chest pain. Patient is feeling somewhat better now and she had CT chest which was abnormal and pulmonary consulted for evaluation for bronchoscopy. Patient has more than [id number] history of smoking tobacco. She does not have diagnosis of obstructive sleep apnea. Past Med Surg Social Fam HX - Past Medical History Medical history: COPD, diabetes, hyperlipidemia, hypertension Psychiatric history: anxiety, depression - Social History Smoking Status: Former smoker Smokeless Tobacco Status: No Alcohol use: none Drug use: none - Family History Mother Hx Family Respiratory Disorders: Yes (copd) Hx Family Cancer: Yes (colon) Medications and Allergies Albuterol Sulfate [Albuterol Inhaler] 2 puff IH Q4H PRN 06/17/16 [History] Aspirin Enteric Coated [Aspirin EC] 81 mg PO DAILY 06/17/16 [History] Fenofibrate 54 mg PO DAILY 06/17/16 [History] Glimepiride [Amaryl] 4 mg PO BID 06/17/16 [History] Lisinopril [Zestril] 20 mg PO DAILY 06/17/16 [History] Metformin HCl 1,000 mg PO BID 06/17/16 [History] Pioglitazone [Actos] 15 mg PO DAILY 06/17/16 [History] Simvastatin [Zocor] 20 mg PO HS 06/17/16 [History] Tiotropium [place] [Spiriva] 18 mcg IH DAILY 06/17/16 [History] Albuterol Neb [Proventil Neb] 2.5 mg IH Q4HR PRN 30 Days 06/23/16 [Rx] Furosemide [Lasix] 20 mg PO BIDDIURETIC #30 tablet 06/23/16 [Rx] Metoprolol [Lopressor] 25 mg PO BID #30 tablet 06/23/16 [Rx] Nicotine Patch [Nicoderm] 21 mg TD DAILY #20 patch.td24 06/23/16 [Rx] Zolpidem Tartrate [Zolpidem Tartrate] 5 mg PO HS 07/11/16 [History] Allergies levofloxacin [From Levaquin] Allergy (Verified 06/18/16 15:41) See Comments bilateral leg swelling All Systems: A 10-system review of systems was performed and is negative for pertinent findings except as documented above in the HPI. Physical Examination Vital Signs: Vital Signs, Last 4 Hours Temp Pulse Resp BP Pulse Ox 07/13/16 08:41 93 L 07/13/16 07:24 98.0 F 92 19 117/66 92 L General appearance: no acute distress Eyes: nonicteric ENT: oropharynx moist Mallampati (class): 3 Neck: supple, no lymphadenopathy, no JVD Effort: mildly labored Inspection: hyperextended Auscultation: right: wheezes, bilateral: diminished breath sounds Percussion: bilateral: not dull Cardiovascular: irregular rhythm Gastrointestinal: normoactive bowel sounds, non-distended Extremities: no cyanosis, edema normal mental status, non-focal exam anxious Results - Laboratory Findings CBC and BMP: 07/13/16 03:21 07/13/16 03:21 PT/INR, D-dimer PT 12.0 Seconds (9.4-12.1) 07/11/16 16:32 Abnormal lab findings: Abnormal lab results RBC 3.62 M/mcL (3.82-4.97) L 07/13/16 03:21 Hgb 10.3 g/dL (11.5-15.4) L 07/13/16 03:21 Hct 31.2 % (35.3-44.9) L 07/13/16 03:21 Reactive Lymphocytes Present (Not Present) A 07/12/16 00:44 Anisocytosis 1+ (Not Present) A 07/12/16 00:44 Microcytosis Present (Not Present) A 07/12/16 00:44 Chloride 96 mEq/L (98-109) L 07/13/16 03:21 BUN 21 mg/dL (7-20) H D 07/13/16 03:21 Glucose 416 mg/dL (70-99) H 07/13/16 03:21 POC Glucose 349 (58-89) H 07/13/16 07:30 Calculated Osmolality 305 (280-300) H 07/13/16 03:21 Magnesium 1.2 mg/dL (1.6-2.6) L 07/12/16 00:44 Albumin 2.9 g/dL (3.5-5.0) L 07/12/16 00:44 Globulin 4.0 g/dL (2.4-3.5) H 07/12/16 00:44 Albumin/Globulin Ratio 0.7 (1.1-2.2) L 07/12/16 00:44 - Diagnostic Findings CT scan - chest: report reviewed, image reviewed - Clinical Findings Intake & Output: Intake & Output 07/12/16 07/13/16 07/13/16 23:59 07:59 15:59 Intake Total 1150 / 1150 0 / 0 Output Total 1400 / 1400 Balance -1400 / -1400 1150 / 1150 0 / 0 Weight 98.6 kg Consult Discharge Plan - Plan Referrals: Eddie Whitley MD [Primary Care Provider] -
[2016-07-13] MEDS: Famotidine 20 MG/2 ML VIAL IVP SCH (17:13)
--- NOTE | 2016-07-13 18:31 | Internal Med Progress Note ---
Date of Encounter: 07/13/16 Time of Encounter: 09:30 (and 1530) - Assessment and plan (1) Pneumonia Current Visit: No Status: Acute Assessment and plan: Patient's aeration has improved today. She was seen by pulmonology this morning and she decided to hold off on the bronchoscopy until her family was present. After a very lengthy discussion with her and her family, they have elected to proceed with a bronchoscopy tomorrow. Her children state that she cannot wait until outpatient due to her extreme anxiety and tendency to perseverate. Drs. Ordaz and Kalina notified of her decision. We will continue vancomycin and Zosyn. Symbicort added to her regimen per pulmonology. 07/12/[address] revealing multifocal pneumonia, multiple groundglass and nodular opacities as well as a spiculated nodule and mild mediastinal lymphadenopathy. It appears as if the pneumonia patient had from her most prior admission where she was discharged approximately 3 weeks ago does not appear to have resolved. Mucous plugging also noted to left lower lobe. Pulmonology brought on board for possible consideration of bronchoscopy at their discretion. We will make patient nothing by mouth tonight and have pulmonology see her tomorrow. We will continue to treat for hospital-acquired pneumonia of unknown etiology at this time with Vanco and Zosyn. She was treated with doxycycline during her last admission. On examination, patient with fair aeration and mild to moderate respiratory distress. Coarse crackles noted bilateral posterior lung rome. ITS Impressions Chest X-Ray 07/11/16 16:31 IMPRESSION: Increased interstitial opacity in the parahilar regions and lung bases likely representing edema. Pneumonia/infiltrate not excluded. D/ / Nazia Russo MD / Nazia Russo MD Interpreting Provider: Nazia Russo MD Chest CTA 07/11/16 19:51 IMPRESSION: No PE identified. Patchy nodular infiltrates within the left lung with trace left pleural effusion. Correlate for pneumonia. Pulmonary emphysema with spiculated nodule within the right upper lobe. Recommend further workup. RECOMMENDATIONS: Fleischner Society guidelines for follow-up and management of pulmonary nodules: Nodule size greater than 8 mm In low-risk and high-risk patients follow-up CT at around 3, 9, and 24 months, dynamic contrast-enhanced CT, PET, and/or biopsy. Low risk patients include individuals with minimal or absent history of smoking and other known risk factors. High risk patients include individuals with a history of smoking or other known risk factors. Radiology 2005; 237:395-400 D/ / Сергей Mondragon MD / Сергей Mondragon MD Interpreting Provider: Сергей Mondragon MD Chest CT 07/12/16 08:34 IMPRESSION: 1. Small left pleural effusion with multifocal airspace consolidation within the lingula and left lower lobe, most likely multifocal pneumonia. 2. Multiple ground-glass and nodular opacities within the left upper lobe are felt to be infectious or inflammatory in etiology, likely the continuum of the patient's multifocal pneumonia. Metastatic disease is considered less likely, though not excluded. 3. Persistent 1.8 x 1.0 cm spiculated nodule within the right lung apex, highly concerning for primary pulmonary malignancy. Consider a follow-up PET-CT study to evaluate the metabolic nature of this abnormality. 4. Mild mediastinal lymphadenopathy, which could represent metastatic disease, and this could also be assessed on a PET-CT study. D/ / 07/12/2016 15:28:55 Daryl Quiñonez MD / joel Interpreting Provider: Daryl Quiñonez MD Qualifiers: Pneumonia type: due to unspecified organism Laterality: bilateral Lung location: unspecified part of lung Qualified Code(s): J18.9 - Pneumonia, unspecified organism (2) COPD with exacerbation Current Visit: Yes Status: Acute (3) Lung mass Current Visit: Yes Status: Acute Assessment and plan: Spiculated lung mass noted on imaging with suspicious mediastinal lymphadenopathy. Follow-up outpatient with oncology for PET scanning. Patient and family requesting a bronchoscopy tomorrow, pulmonology on board and at their discretion. (4) Acute and chronic respiratory failure Current Visit: Yes Status: Acute Assessment and plan: Patient was started on supplemental oxygenation during her most recent admission last week. She is currently on 3 L per nasal cannula continuously. We will continue to trend. Patient is very concerned that she does not want to be on oxygen the rest of her life. Her aeration has improved today however she is not near her baseline. We will continue to attempt to wean her oxygen as she improves. (5) Anxiety about health Current Visit: Yes Status: Chronic Assessment and plan: I was in the patient's room with her and 3 adult children for over an hour today. Patient has a lot of anxiety and she was started on clonazepam low- dose scheduled twice a day with lorazepam IV as needed for breakthrough anxiety. She has benefited greatly from these medications and I strongly recommend that they be continued upon disposition. While she has much call more today, she continues to perseverate on her quality of life and she is very concerned about possibly having cancer. Her family provides a beneficial support network for her and they have reassured her as has her . 07/12/16 Patient is extremely anxious and has several questions regarding whether or not her oxygen will be for the rest of her life, whether or not she is currently less fatigued in the sick the rest of her life. She is very concerned that she is not able to be active and do her activities of daily living and she is extremely anxious with several questions. We will start her on clonazepam with IV Ativan for breakthrough anxiety. discussing her concerns for nearly 45 minutes, the patient was much calmer but remained anxious with full body tremors. (6) Diabetes Current Visit: No Status: Chronic Assessment and plan: A1c 8.5%. Slightly better controlled today however remains uncontrolled secondary to steroid administration, her sliding scale was increased from low to medium yesterday, will increase to high dose sliding scale this time. If this proves ineffective, she will need to be started on an insulin drip. Of note, during patient's last admission from earlier this month, she had to be placed on IV insulin as subcutaneous insulin was not effective in bringing her glucoses down. We will see how she does with the increase sliding scale as well as basal and transition to insulin drip if needed. (7) COPD (chronic obstructive pulmonary disease) Current Visit: Yes Status: Chronic Qualifiers: COPD type: COPD with acute exacerbation Qualified Code(s): J44.1 - Chronic obstructive pulmonary disease with (acute) exacerbation (8) Hypertension Current Visit: No Status: Chronic Assessment and plan: Controlled. At home, she is on metoprolol 25 mg twice a day, lisinopril 20 mg daily, furosemide 20 mg twice a day. Her metoprolol and her lisinopril have been continued. Qualifiers: Hypertension type: essential hypertension Qualified Code(s): I10 - Essential (primary) hypertension (9) Tobacco abuse Current Visit: No Status: Chronic Assessment and plan: Patient used to smoke 1-1/2 packs per day for 50 years and stopped last month. No cigarettes in 1 month. (10) Diastolic heart failure Current Visit: Yes Status: Chronic Assessment and plan: Patient had an echocardiogram at the beginning of this month on 06/20/16 and revealed an ejection fraction of 65-70% with mild diastolic dysfunction. She is on furosemide at home. Appears euvolemic on examination. No pedal edema. Chronic diastolic heart failure without acute exacerbation. - Subjective Interval history: Patient seen and examined earlier this morning however she states all of her children are coming to see her to discuss possible bronchoscopy and she would like for me to come back when her family is present. I then came back in the early afternoon and had a very lengthy discussion with her family. Patient states that her shortness of breath has improved but she is not back to her baseline. She is concerned about her stamina and her weakness. She is concerned about her quality of life. She has multiple concerns as does her family, questions answered at length. - Constitutional Vitals: Temp Pulse Resp BP Pulse Ox 98.2 F 87 17 117/69 95 07/13/16 17:00 07/13/16 17:00 07/13/16 17:00 07/13/16 17:00 07/13/16 17:00 General appearance: Present: mild distress, A&O X 3, morbidly obese, pleasant, answers questions appropriately - Head Head exam: Present: atraumatic, normocephalic - Eye Eye exam: Present: PERRL, conjuntiva pink, sclera anicteric Pupils: Present: PERRL - Neck Neck exam general surgery: Present: supple, trachea midline. Absent: lymphadenopathy - Respiratory Respiratory exam: Present: decreased breath sounds, respiratory distress (mild) , rhonchi. Absent: accessory muscle use, rales, wheezes - Cardiovascular Cardiovascular exam: Present: RRR, +S1, +S2. Absent: diastolic murmur, gallop, rubs, systolic murmur - GI/Abdominal GI/Abdominal exam: Present: normal bowel sounds, soft, no peritoneal signs. Absent: distended, tenderness - Extremities Exam Extremities exam: Present: warm, radial pulses palpable and symetrical. Absent : calf tenderness, cyanotic, pedal edema - Neurological Exam Neurological exam: Present: alert, CN II-XII intact, oriented X3, no focal deficits, strengths equal and symetr throughout. Absent: pronater drift, facial droop, speech deficit - Skin Skin exam: Present: dry, intact, pallor, warm Internal Medicine: Result - Labs CBC & Chem 7: 07/13/16 03:21 07/13/16 03:21 Labs: Short CBC 07/13/16 Range/Units 03:21 WBC 8.2 D (4.3-11.1) K/mcL Hgb 10.3 L (11.5-15.4) g/dL Hct 31.2 L (35.3-44.9) % Plt Count 216 (140-400) K/mcL Neutrophils # 6.9 (1.6-8.9) K/mcL BMP 07/13/16 03:21 Sodium 137 Potassium 4.0 Chloride 96 L Carbon Dioxide 29 BUN 21 H D Creatinine 0.84 Glucose 416 H Calcium 8.9 - ABG Interpretation ABG results: PT/INR, D-dimer PT 12.0 Seconds (9.4-12.1) 07/11/16 16:32 - Impressions Impressions Chest CT 07/12/16 08:34 IMPRESSION: 1. Small left pleural effusion with multifocal airspace consolidation within the lingula and left lower lobe, most likely multifocal pneumonia. 2. Multiple ground-glass and nodular opacities within the left upper lobe are felt to be infectious or inflammatory in etiology, likely the continuum of the patient's multifocal pneumonia. Metastatic disease is considered less likely, though not excluded. 3. Persistent 1.8 x 1.0 cm spiculated nodule within the right lung apex, highly concerning for primary pulmonary malignancy. Consider a follow-up PET-CT study to evaluate the metabolic nature of this abnormality. 4. Mild mediastinal lymphadenopathy, which could represent metastatic disease, and this could also be further assessed on a PET-CT study. D/ / 07/12/2016 15:28:55 Daryl Quiñonez MD / joel Interpreting Provider: Daryl Quiñonez MD Consult Discharge Plan - Plan Referrals: Eddie Whitley MD [Primary Care Provider] -
[2016-07-13] MEDS: Vancomycin 1,500 MG in D5% in Water 250 ML IVPB SCH (21:25)
--- NOTE | 2016-07-13 21:33 | Electrocardiograph Report ---
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
[2016-07-13] MEDS: Budesonide/Formoterol 160/4.5 MDI IH SCH (22:10)
[2016-07-14] MEDS: MethylPREDNISolone 40 MG/ML VIAL IVP SCH ×4 (00:52→23:41)
[2016-07-14] MEDS: Piperacillin/Tazobactam 3.375 GM in D5% in Water (Mini-Bag+) 100 ML IVPB SCH ×3 (00:54→16:32)
[2016-07-14] MEDS: *HR* LORazepam 2 MG/ML VIAL IVP PRN ×4 (00:55→23:56)
[2016-07-14 05:04] LABS: Basophils % 0.1 %; Hemoglobin 10.3 g/dL (11.5-15.4); Immature Granulocytes % 1.7 % (0-4); Lymphocytes # 0.8 K/mcL (0.6-4.6); Lymphocytes % 7.7 %; Mean Corpuscular HGB Conc 32.2 g/dL (31.6-35.5); Mean Corpuscular Hemoglobin 27.9 pg (28.0-33.3); Mean Corpuscular Volume 86.7 fL (83.0-100.0); Mean Platelet Volume 10.3 fL (9.4-12.4); Monocytes # 0.5 K/mcL (0.0-1.3); Monocytes % 4.4 %; Platelet Count 248 K/mcL (140-400); Red Blood Count 3.69 M/mcL (3.82-4.97); Red Cell Distribution Width 13.5 % (11.5-14.5); Segmented Neutrophils % 86.1 %
[2016-07-14] MEDS: Ipratropium/Albuterol Neb 3 ML IH SCH ×4 (05:05→23:12)
[2016-07-14 05:14] LABS: INR 0.9; Prothrombin Time 9.9 Seconds (9.4-12.1)
[2016-07-14 05:24] LABS: BUN/Creatinine Ratio 30 (6-26); Blood Urea Nitrogen 27 mg/dL (7-20); Calcium 8.6 mg/dL (8.6-10.8); Carbon Dioxide 30 mEq/L (19-29); Chloride 97 mEq/L (98-109); Glucose 356 mg/dL (70-99); Osmolality,Calculated 303 (280-300); Potassium 4.3 mEq/L (3.5-4.5); Sodium 137 mEq/L (136-145); eGFR For African Americans > 60 (> 60); eGFR For Non-African Americans > 60 (> 60)
[2016-07-14 05:33] LABS: Platelet Estimate Normal (Normal); Reactive Lymphocytes Present (Not Present)
[2016-07-14] MEDS: *HR* Heparin 5,000 UNIT/ML VIAL SQ SCH ×2 (06:49→17:55)
[2016-07-14] MEDS: Aspirin 81 MG TAB.CHEW PO SCH (08:56)
[2016-07-14] MEDS: clonazePAM 0.5 MG TABLET PO SCH ×2 (08:56→21:22)
[2016-07-14] MEDS: Lisinopril 20 MG TABLET PO SCH (08:56)
[2016-07-14] MEDS: Insulin LISPRO 300 UNITS/3 ML VIAL SQ SCH ×4 (09:03→20:52)
[2016-07-14] MEDS: Insulin DETEMIR 100 UNIT/ML X5UNITS SQ SCH ×2 (09:08→19:57)
--- NOTE | 2016-07-14 09:21 | Pulmonology Progress Note ---
Date of Encounter: 07/14/16 Time of Encounter: 09:21 Assessment and Plan (1) Acute and chronic respiratory failure Current Visit: Yes Status: Acute S/t to PNA, COPD with Exacerbation with chronic underyling COPD and Obesity. Continue bronchopulmonary toileting including incentive spirometry and out of bed to chair Continue oxygen delivery via nasal cannula to keep saturation greater than 88-92 % Qualifiers: Respiratory failure complication: unspecified whether with hypoxia or hypercapnia Qualified Code(s): J96.20 - Acute and chronic respiratory failure , unspecified whether with hypoxia or hypercapnia (2) COPD with exacerbation Current Visit: Yes Status: Acute s/t PNA enteral steroids tapered over two weeks (prednisone 40mg) cont bronchodilators cont ICS/LABA tobacco abuse in remission May be candidate for Daliresp as outpatient Outpatient referral for Pulmonary Rehab Outpatient Pulmonary F/u (3) Lung mass Current Visit: Yes Status: Acute Concern for Primary Lung CA No bronchoscopy at this time will need PET/CT as outpatient and return for bronch as outpatient with possible EBUS/Navigational bronchoscopy (4) Diastolic heart failure Current Visit: Yes Status: Chronic Qualifiers: Heart failure chronicity: chronic Qualified Code(s): I50.32 - Chronic diastolic (congestive) heart failure (5) Pneumonia Current Visit: No Status: Acute send sputum sample and respiratory viral panel cont abx Deescalate to PO meds tomorrow to complete 7 day course (Augmentin) Qualifiers: Pneumonia type: due to unspecified organism Laterality: left Lung location: unspecified part of lung Qualified Code(s): J18.9 - Pneumonia, unspecified organism Subjective Principal diagnosis: Pneumonia Interval history: Breathing is about the same still very anxious agreed to proceed with bronchoscopy as outlined over the weekend but she is unclear exactly what that means. Objective PUL Vital signs: Last Vital Signs Temp 98.2 F 07/14/16 07:24 Pulse 85 07/14/16 07:24 Resp 16 07/14/16 07:24 BP 125/71 07/14/16 07:24 Pulse Ox 94 L 07/14/16 07:24 General appearance: no acute distress ENT: oropharynx moist Neck: supple Effort: mildly labored Auscultation: bilateral: diminished breath sounds, wheezes, rhonchi (scattered ) Cardiovascular: regular rate and rhythm Gastrointestinal: normoactive bowel sounds Extremities: edema (trace b/l pitting ) normal mental status, non-focal exam anxious Results - Laboratory Findings CBC and BMP: 07/14/16 04:07 07/14/16 04:07 PT/INR, D-dimer PT 9.9 Seconds (9.4-12.1) 07/14/16 04:07 Abnormal lab findings: Abnormal lab results RBC 3.69 M/mcL (3.82-4.97) L 07/14/16 04:07 Hgb 10.3 g/dL (11.5-15.4) L 07/14/16 04:07 Hct 32.0 % (35.3-44.9) L 07/14/16 04:07 MCH 27.9 pg (28.0-33.3) L 07/14/16 04:07 Neutrophils # 9.0 K/mcL (1.6-8.9) H 07/14/16 04:07 Reactive Lymphocytes Present (Not Present) A 07/14/16 04:07 Anisocytosis 1+ (Not Present) A 07/12/16 00:44 Microcytosis Present (Not Present) A 07/12/16 00:44 Chloride 97 mEq/L (98-109) L 07/14/16 04:07 Carbon Dioxide 30 mEq/L (19-29) H 07/14/16 04:07 BUN 27 mg/dL (7-20) H 07/14/16 04:07 BUN/Creatinine Ratio 30 (6-26) H 07/14/16 04:07 Glucose 356 mg/dL (70-99) H 07/14/16 04:07 POC Glucose 327 (58-89) H 07/14/16 07:28 Calculated Osmolality 303 (280-300) H 07/14/16 04:07 Magnesium 1.2 mg/dL (1.6-2.6) L 07/12/16 00:44 Albumin 2.9 g/dL (3.5-5.0) L 07/12/16 00:44 Globulin 4.0 g/dL (2.4-3.5) H 07/12/16 00:44 Albumin/Globulin Ratio 0.7 (1.1-2.2) L 07/12/16 00:44 - Clinical Findings Intake & Output: Intake & Output 07/13/16 07/14/16 07/14/16 23:59 07:59 15:59 Intake Total 400 / 400 100 / 100 Output Total 600 / 600 500 / 500 Balance -200 / -200 -400 / -400 Weight 101 kg Consult Discharge Plan - Plan Referrals: Eddie Whitley MD [Primary Care Provider] -
[2016-07-14] MEDS: Budesonide/Formoterol 160/4.5 MDI IH SCH ×2 (11:46→23:12)
[2016-07-14] MEDS: Famotidine 20 MG/2 ML VIAL IVP SCH (17:55)
--- NOTE | 2016-07-14 18:54 | Internal Med Progress Note ---
Date of Encounter: 07/14/16 Time of Encounter: 16:00 - Assessment and plan (1) Pneumonia Current Visit: No Status: Acute Assessment and plan: Patient's aeration continues to improve as does her stamina and strength. She states she is able to walk around her room a little bit better today. She also states her breathing has slightly improved. She spoke to Dr. Stuart this morning and the decision was made to proceed with a bronchoscopy on the outpatient arena along with a PET scan. I had a very lengthy discussion with the patient as she wanted to know the exact time line of [place] scan would be, when the bronchoscopy would be, and when she would know what the results were. I explained to her that an exact timeline is difficult to obtain at this time. She continues to perseverate however her anxiety level appears slightly better today. She states the anxiety medications that helped her out a lot and are actually helping her sleep and take naps as she needs. Sputum culture with gram-positive cocci. She is currently on Zosyn and vancomycin and Symbicort has been added to her regimen. Per pulmonology recommendations, we will likely some which are to Augmentin by mouth 7 days tomorrow with possible discharge tomorrow pending clinical outcomes 07/13/16 Patient's aeration has improved today. She was seen by pulmonology this morning and she decided to hold off on the bronchoscopy until her family was present. After a very lengthy discussion with her and her family, they have elected to proceed with a bronchoscopy tomorrow. Her children state that she cannot wait until outpatient due to her extreme anxiety and tendency to perseverate. Drs. Ordaz and Kalina notified of her decision. We will continue vancomycin and Zosyn. Symbicort added to her regimen per pulmonology. 07/12/[address] revealing multifocal pneumonia, multiple groundglass and nodular opacities as well as a spiculated nodule and mild mediastinal lymphadenopathy. It appears as if the pneumonia patient had from her most prior admission where she was discharged approximately 3 weeks ago does not appear to have resolved. Mucous plugging also noted to left lower lobe. Pulmonology brought on board for possible consideration of bronchoscopy at their discretion. We will make patient nothing by mouth tonight and have pulmonology see her tomorrow. We will continue to treat for hospital-acquired pneumonia of unknown etiology at this time with Vanco and Josep. She was treated with doxycycline during her last admission. On examination, patient with fair aeration and mild to moderate respiratory distress. Coarse crackles noted bilateral posterior lung rome. ITS Impressions Chest X-Ray 07/11/16 16:31 IMPRESSION: Increased interstitial opacity in the parahilar regions and lung bases likely representing edema. Pneumonia/infiltrate not excluded. D/ / Nazia Russo MD / Nazia Russo MD Interpreting Provider: Nazia Russo MD Chest CTA 07/11/16 19:51 IMPRESSION: No PE identified. Patchy nodular infiltrates within the left lung with trace left pleural effusion. Correlate for pneumonia. Pulmonary emphysema with spiculated nodule within the right upper lobe. Recommend further workup. RECOMMENDATIONS: Fleischner Society guidelines for follow-up and management of pulmonary nodules: Nodule size greater than 8 mm In low-risk and high-risk patients follow-up CT at around 3, 9, and 24 months, dynamic contrast-enhanced CT, PET, and/or biopsy. Low risk patients include individuals with minimal or absent history of smoking and other known risk factors. High risk patients include individuals with a history of smoking or other known risk factors. Radiology 2005; [id number] D/ / Сергей Mondragon MD / Сергей Mondragon MD Interpreting Provider: Сергей Mondragon MD Chest CT 07/12/16 08:34 IMPRESSION: 1. Small left pleural effusion with multifocal airspace consolidation within the lingula and left lower lobe, most likely multifocal pneumonia. 2. Multiple ground-glass and nodular opacities within the left upper lobe are felt to be infectious or inflammatory in etiology, likely the continuum of the patient's multifocal pneumonia. Metastatic disease is considered less likely, though not excluded. 3. Persistent 1.8 x 1.0 cm spiculated nodule within the right lung apex, highly concerning for primary pulmonary malignancy. Consider a follow-up PET-CT study to evaluate the metabolic nature of this abnormality. 4. Mild mediastinal lymphadenopathy, which could represent metastatic disease, and this could also be assessed on a PET-CT study. D/ / 07/12/2016 15:28:55 Daryl Quiñonez MD / joel Interpreting Provider: Daryl Quiñonez MD (2) COPD with exacerbation Current Visit: Yes Status: Acute Assessment and plan: Improving. At home, she is on Spiriva and albuterol, Symbicort has been added to her regimen. (3) Lung mass Current Visit: Yes Status: Acute Assessment and plan: Spiculated lung mass noted on imaging with suspicious mediastinal lymphadenopathy. Follow-up outpatient with oncology for PET scanning. Patient and family requested a bronchoscopy today, but pulmonology feels this would be more appropriate on an outpatient basis once her pneumonia improves and she can have a PET scan. (4) Acute and chronic respiratory failure Current Visit: Yes Status: Acute Assessment and plan: Patient was started on supplemental oxygenation during her most recent admission last week. She is currently on 3 L per nasal cannula continuously. We will continue to trend. Patient is very concerned that she does not want to be on oxygen the rest of her life. Her aeration has improved today however she is not near her baseline prior to getting sick a couple months ago. We will continue to attempt to wean her oxygen as she improves. (5) Anxiety about health Current Visit: Yes Status: Chronic Assessment and plan: I started the patient on clonazepam with IV Ativan for breakthrough anxiety. Her anxiety has much improved however she remains incredibly anxious most of the time. Her anxiety improves greatly when the plan of care is explained to her numerous times and reassurance is provided. She has a very strong network with her and her 3 children. Strongly recommend continuing clonazepam upon discharge. Also of note, patient's hands shake constantly and she is on a continuous pulse ox and the machine is constantly beeping as it is not picking up a correct waveform with all of her shaking, machine turned off at this time, she does not need continuous pulse oximetry while she is awake. The beeping was exacerbating her anxiety. 07/13/16 I was in the patient's room with her and 3 adult children for over an hour today. Patient has a lot of anxiety and she was started on clonazepam low- dose scheduled twice a day with lorazepam IV as needed for breakthrough anxiety. She has benefited greatly from these medications and I strongly recommend that they be continued upon disposition. While she has much call more today, she continues to perseverate on her quality of life and she is very concerned about possibly having cancer. Her family provides a beneficial support network for her and they have reassured her as has her . 07/12/16 Patient is extremely anxious and has several questions regarding whether or not her oxygen will be for the rest of her life, whether or not she is currently less fatigued in the sick the rest of her life. She is very concerned that she is not able to be active and do her activities of daily living and she is extremely anxious with several questions. We will start her on clonazepam with IV Ativan for breakthrough anxiety. discussing her concerns for nearly 45 minutes, the patient was much calmer but remained anxious with full body tremors. (6) Diabetes Current Visit: No Status: Chronic Assessment and plan: Better controlled today, no indication for IV insulin at this time. We will continue to adjust sliding scale and basal 07/13/16 A1c 8.5%. Slightly better controlled today however remains uncontrolled secondary to steroid administration, her sliding scale was increased from low to medium yesterday, will increase to high dose sliding scale this time. If this proves ineffective, she will need to be started on an insulin drip. Of note, during patient's last admission from earlier this month, she had to be placed on IV insulin as subcutaneous insulin was not effective in bringing her glucoses down. We will see how she does with the increase sliding scale as well as basal and transition to insulin drip if needed. (7) COPD (chronic obstructive pulmonary disease) Current Visit: Yes Status: Chronic Qualifiers: COPD type: COPD with acute exacerbation Qualified Code(s): J44.1 - Chronic obstructive pulmonary disease with (acute) exacerbation (8) Hypertension Current Visit: No Status: Chronic Assessment and plan: Controlled. At home, she is on metoprolol 25 mg twice a day, lisinopril 20 mg daily, furosemide 20 mg twice a day. Her metoprolol and her lisinopril have been continued. Qualifiers: Hypertension type: essential hypertension Qualified Code(s): I10 - Essential (primary) hypertension (9) Tobacco abuse Current Visit: No Status: Chronic Assessment and plan: Patient used to smoke 1-1/2 packs per day for 50 years and stopped last month. No cigarettes in 1 month. (10) Diastolic heart failure Current Visit: Yes Status: Chronic Assessment and plan: Patient had an echocardiogram at the beginning of this month on 06/20/16 and revealed an ejection fraction of 65-70% with mild diastolic dysfunction. She is on furosemide at home. Appears euvolemic on examination. No pedal edema. Chronic diastolic heart failure without acute exacerbation. - Subjective Interval history: Patient seen and examined. On examination, patient is sitting upright on the side of her bed. She is alert and oriented 3 and states she feels slightly better than yesterday. She continues to have a lot of questions regarding plan of care, timeframe for her improving on her symptoms and timeframe for when she will get the biopsy and timeframe for when she will see the feather baler outpatient. She states she is eating well and has been able to be active around her room with slightly improving stamina. - Constitutional Vitals: Temp Pulse Resp BP Pulse Ox 98.2 F 78 16 113/62 96 07/14/16 15:16 07/14/16 15:16 07/14/16 16:43 07/14/16 15:16 07/14/16 16:43 General appearance: Present: mild distress, A&O X 3, morbidly obese, pleasant, answers questions appropriately - Head Head exam: Present: atraumatic, normocephalic - Eye Eye exam: Present: PERRL, conjuntiva pink, sclera anicteric Pupils: Present: PERRL - Neck Neck exam general surgery: Present: supple, trachea midline. Absent: lymphadenopathy - Respiratory Respiratory exam: Present: decreased breath sounds (LLL decreased with rhonchi; good aeration elsewhere), prolonged expiratory phase, respiratory distress (mild ; suspect baseline), wheezes. Absent: accessory muscle use, rales, rhonchi - Cardiovascular Cardiovascular exam: Present: RRR, +S1, +S2. Absent: diastolic murmur, gallop, rubs, systolic murmur - GI/Abdominal GI/Abdominal exam: Present: distended, normal bowel sounds, soft, no peritoneal signs. Absent: tenderness - Extremities Exam Extremities exam: Present: warm, radial pulses palpable and symetrical. Absent : calf tenderness, cyanotic, pedal edema - Neurological Exam Neurological exam: Present: alert, CN II-XII intact, oriented X3, no focal deficits, strengths equal and symetr throughout. Absent: pronater drift, facial droop, speech deficit - Psychiatric Psychiatric exam: Present: anxious - Expanded Psychiatric Exam Focused psych exam: Present: perseverating, pressured speech, psychomotor agitation, restlessness - Skin Skin exam: Present: dry, intact, pallor, warm Internal Medicine: Result - Labs CBC & Chem 7: 07/14/16 04:07 07/14/16 04:07 Labs: Short CBC 07/14/16 Range/Units 04:07 WBC 10.5 (4.3-11.1) K/mcL Hgb 10.3 L (11.5-15.4) g/dL Hct 32.0 L (35.3-44.9) % Plt Count 248 (140-400) K/mcL Neutrophils # 9.0 H (1.6-8.9) K/mcL BMP 07/14/16 04:07 Sodium 137 Potassium 4.3 Chloride 97 L Carbon Dioxide 30 H BUN 27 H Creatinine 0.90 Glucose 356 H Calcium 8.6 - ABG Interpretation ABG results: PT/INR, D-dimer PT 9.9 Seconds (9.4-12.1) 07/14/16 04:07 Consult Discharge Plan - Plan Referrals: Eddie Whitley MD [Primary Care Provider] -
[2016-07-14] MEDS ORDERED: Vancomycin 1,500 MG in D5% in Water 250 ML IVPB SCH (19:00)
[2016-07-14] MEDS ORDERED: Magnesium Sulfate 2 GM in D5% in Water 100 ML IVPB ONE (19:39)
[2016-07-14] MEDS ORDERED: Insulin LISPRO 300 UNITS/3 ML VIAL SQ ONE (23:26)
[2016-07-15] MEDS: Vancomycin 1,500 MG in D5% in Water 250 ML IVPB SCH (01:03)
[2016-07-15] MEDS: Piperacillin/Tazobactam 3.375 GM in D5% in Water (Mini-Bag+) 100 ML IVPB SCH ×2 (03:22→14:24)
[2016-07-15] MEDS: Ipratropium/Albuterol Neb 3 ML IH SCH ×4 (04:59→22:28)
[2016-07-15] MEDS: *HR* Heparin 5,000 UNIT/ML VIAL SQ SCH ×2 (05:12→18:14)
[2016-07-15 07:52] LABS: BUN/Creatinine Ratio 26 (6-26); Blood Urea Nitrogen 18 mg/dL (7-20); Calcium 8.6 mg/dL (8.6-10.8); Carbon Dioxide 31 mEq/L (19-29); Chloride 101 mEq/L (98-109); Glucose 212 mg/dL (70-99); Magnesium 2.1 mg/dL (1.6-2.6); Osmolality,Calculated 298 (280-300); Potassium 4.1 mEq/L (3.5-4.5); Sodium 140 mEq/L (136-145); eGFR For African Americans > 60 (> 60); eGFR For Non-African Americans > 60 (> 60)
[2016-07-15] MEDS ORDERED: Aminoglycoside Consult 1 EACH MC ONE (08:14)
[2016-07-15] MEDS: Aspirin 81 MG TAB.CHEW PO SCH (09:47)
[2016-07-15] MEDS: Insulin LISPRO 300 UNITS/3 ML VIAL SQ SCH ×4 (09:48→20:58)
[2016-07-15] MEDS: Insulin DETEMIR 100 UNIT/ML X5UNITS SQ SCH ×2 (09:48→20:55)
[2016-07-15] MEDS: Lisinopril 20 MG TABLET PO SCH (09:48)
[2016-07-15] MEDS: MethylPREDNISolone 40 MG/ML VIAL IVP SCH ×3 (09:49→20:55)
[2016-07-15] MEDS: clonazePAM 0.5 MG TABLET PO SCH ×2 (09:49→20:57)
[2016-07-15] MEDS: Budesonide/Formoterol 160/4.5 MDI IH SCH ×2 (10:00→22:28)
--- NOTE | 2016-07-15 11:58 | Pulmonology Progress Note ---
Date of Encounter: 07/15/16 Time of Encounter: 11:58 Assessment and Plan (1) Acute and chronic respiratory failure Current Visit: Yes Status: Acute S/t to PNA, COPD with Exacerbation with chronic underyling COPD and Obesity. Continue bronchopulmonary toileting including incentive spirometry and out of bed to chair Continue oxygen delivery via nasal cannula to keep saturation greater than 88-92 % - essentially at baseline Qualifiers: Respiratory failure complication: unspecified whether with hypoxia or hypercapnia Qualified Code(s): J96.20 - Acute and chronic respiratory failure , unspecified whether with hypoxia or hypercapnia (2) COPD with exacerbation Current Visit: Yes Status: Acute s/t PNA enteral steroids tapered over two weeks (prednisone 40mg) cont bronchodilators cont ICS/LABA tobacco abuse in remission May be candidate for Daliresp as outpatient Outpatient referral for Pulmonary Rehab Outpatient Pulmonary F/u within 1 week (3) Lung mass Current Visit: Yes Status: Acute Concern for Primary Lung CA No bronchoscopy at this time will need PET/CT as outpatient and return for bronch as outpatient with possible EBUS/Navigational bronchoscopy (4) Diastolic heart failure Current Visit: Yes Status: Chronic diuresis as tolerated Qualifiers: Heart failure chronicity: chronic Qualified Code(s): I50.32 - Chronic diastolic (congestive) heart failure (5) Pneumonia Current Visit: No Status: Acute Cultures negative thus far complete 7 day course (Augmentin) Pulmonary will sign off. She will need outpatient follow within 1-2 weeks in Pulmonary Clinic. Qualifiers: Pneumonia type: due to unspecified organism Laterality: left Lung location: unspecified part of lung Qualified Code(s): J18.9 - Pneumonia, unspecified organism Subjective Principal diagnosis: Pneumonia Interval history: Overall breathing status has improved. She is on 3L NC which is her baseline Still with significant anxiety Objective PUL Vital signs: Last Vital Signs Temp 96.6 F L 07/15/16 10:35 Pulse 72 07/15/16 10:35 Resp 16 07/15/16 10:35 BP 121/69 07/15/16 10:35 Pulse Ox 96 07/15/16 10:35 General appearance: no acute distress Effort: mildly labored Auscultation: bilateral: diminished breath sounds, wheezes Cardiovascular: regular rate and rhythm Extremities: no edema normal mental status, non-focal exam Results - Laboratory Findings CBC and BMP: 07/14/16 04:07 07/15/16 07:34 PT/INR, D-dimer PT 9.9 Seconds (9.4-12.1) 07/14/16 04:07 Abnormal lab findings: Abnormal lab results RBC 3.69 M/mcL (3.82-4.97) L 07/14/16 04:07 Hgb 10.3 g/dL (11.5-15.4) L 07/14/16 04:07 Hct 32.0 % (35.3-44.9) L 07/14/16 04:07 MCH 27.9 pg (28.0-33.3) L 07/14/16 04:07 Neutrophils # 9.0 K/mcL (1.6-8.9) H 07/14/16 04:07 Reactive Lymphocytes Present (Not Present) A 07/14/16 04:07 Anisocytosis 1+ (Not Present) A 07/12/16 00:44 Microcytosis Present (Not Present) A 07/12/16 00:44 Carbon Dioxide 31 mEq/L (19-29) H 07/15/16 07:34 Glucose 212 mg/dL (70-99) H 07/15/16 07:34 POC Glucose 328 (58-89) H 07/15/16 00:53 Albumin 2.9 g/dL (3.5-5.0) L 07/12/16 00:44 Globulin 4.0 g/dL (2.4-3.5) H 07/12/16 00:44 Albumin/Globulin Ratio 0.7 (1.1-2.2) L 07/12/16 00:44 Vancomycin Trough 4.9 mcg/mL (10-20) L 07/14/16 18:21 - Microbiology Findings Microbiology Findings: Microbiology, Last 48 Hours 07/14/16 09:30 Sputum Culture - Final Sputum - Clinical Findings Intake & Output: Intake & Output 07/14/16 07/15/16 07/15/16 23:59 07:59 15:59 Intake Total 340 / 340 354 / 354 220 / 220 Output Total 1900 / 1900 Balance 340 / 340 -1546 / -1546 220 / 220 Weight 103.5 kg Consult Discharge Plan - Plan Referrals: Eddie Whitley MD [Primary Care Provider] -
[2016-07-15] MEDS ORDERED: Vancomycin 1,500 MG in D5% in Water 250 ML IVPB SCH (13:00)
[2016-07-15] MEDS ORDERED: Piperacillin/Tazobactam 3.375 GM VIAL IVPB ONE (14:21)
[2016-07-15] MEDS: *HR* LORazepam 2 MG/ML VIAL IVP PRN (14:27)
--- NOTE | 2016-07-15 15:26 | Internal Med Progress Note ---
<Rand Cintron - Last Filed: 07/15/16 15:46> Date of Encounter: 07/15/16 Time of Encounter: 15:00 - Assessment and plan (1) Pneumonia Current Visit: No Status: Acute Assessment and plan: Patient was hospitalized 3 weeks ago for Pneumonia and discharged with steriods and lasix. She was admitted on 07/11/16 for COPD exacerbation. She is clinically stable and has persistent anxiety about her health issues. Will continue vancomycin and zosyn, consider change it Augmentin on discharge per pulmonary recommendation. ITS Impressions Chest X-Ray 07/11/16 16:31 IMPRESSION: Increased interstitial opacity in the parahilar regions and lung bases likely representing edema. Pneumonia/infiltrate not excluded. D/ / Nazia Russo MD / Nazia Russo MD Interpreting Provider: Nazia Russo MD Chest CTA 07/11/16 19:51 IMPRESSION: No PE identified. Patchy nodular infiltrates within the left lung with trace left pleural effusion. Correlate for pneumonia. Pulmonary emphysema with spiculated nodule within the right upper lobe. Recommend further workup. Chest CT 07/12/16 08:34 IMPRESSION: 1. Small left pleural effusion with multifocal airspace consolidation within the lingula and left lower lobe, most likely multifocal pneumonia. 2. Multiple ground-glass and nodular opacities within the left upper lobe are felt to be infectious or inflammatory in etiology, likely the continuum of the patient's multifocal pneumonia. Metastatic disease is considered less likely, though not excluded. 3. Persistent 1.8 x 1.0 cm spiculated nodule within the right lung apex, highly concerning for primary pulmonary malignancy. Consider a follow-up PET-CT study to evaluate the metabolic nature of this abnormality. 4. Mild mediastinal lymphadenopathy, which could represent metastatic disease, and this could also be assessed on a PET-CT study. D/ / 07/12/2016 15:28:55 Daryl Quiñonez MD / joel Interpreting Provider: Daryl Quiñonez MD Qualifiers: Pneumonia type: due to unspecified organism Laterality: left Lung location: unspecified part of lung Qualified Code(s): J18.9 - Pneumonia, unspecified organism (2) COPD with exacerbation Current Visit: Yes Status: Acute Assessment and plan: Continues to slowly improve Continue home Spiriva and albuterol, Symbicort has been added this hospitalization (3) COPD (chronic obstructive pulmonary disease) Current Visit: Yes Status: Acute Assessment and plan: No formal diagnosis Patient has never had a PFT, would benefit from one in 6-8 weeks as outpatient to establish baseline lung function Current oxygen requirement may be secondary to progression of underlying disease vs infection. Pulmonology following, appreciate input and expertise. Qualifiers: COPD type: COPD with acute exacerbation Qualified Code(s): J44.1 - Chronic obstructive pulmonary disease with (acute) exacerbation (4) Acute and chronic respiratory failure Current Visit: Yes Status: Acute Assessment and plan: Patient was started on supplemental oxygenation during her most recent admission last week. She is currently on 3 L per nasal cannula continuously. Continue supplemental oxygen as needed to maintain SpO2 > 88% Unclear if underlying increased oxygenation requirements secondary to progression of lung disease vs secondary to acute infectious process. Qualifiers: Respiratory failure complication: unspecified whether with hypoxia or hypercapnia Qualified Code(s): J96.20 - Acute and chronic respiratory failure , unspecified whether with hypoxia or hypercapnia (5) Diabetes Current Visit: No Status: Chronic Assessment and plan: A1c 8.5%. Expect hyperglycemia with addition of steroids Continue slliding scale TID with meals and QHS. Continue basal insulin. 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 Continue metoprolol, lisinopril. Qualifiers: Hypertension type: essential hypertension Qualified Code(s): I10 - Essential (primary) hypertension (7) Tobacco abuse Current Visit: No Status: Chronic Assessment and plan: Patient used to smoke 1-1/2 packs per day for 50 years and stopped last month. No cigarettes in 1 month. (8) Lung mass Current Visit: Yes Status: Acute Assessment and plan: Spiculated lung mass noted on imaging with suspicious mediastinal lymphadenopathy. Follow-up outpatient with oncology for PET scanning. Pulmonology consulted will plan to do outpatient bronchoscopy. (9) Anxiety about health Current Visit: Yes Status: Chronic Assessment and plan: Continue clonazepam with IV ativan for breakthrough anxiety She remains anxious about her health and what lead her to this condition, she asked numerous questions about outpatient treatments and referrals today . (10) Diastolic heart failure Current Visit: Yes Status: Chronic Assessment and plan: Echocardiogram 06/20/16 with LVEF 65-70%and mild diastolic dysfunction. Qualifiers: Heart failure chronicity: chronic Qualified Code(s): I50.32 - Chronic diastolic (congestive) heart failure - Constitutional Vitals: Temp Pulse Resp BP Pulse Ox 96.6 F L 72 16 121/69 96 07/15/16 10:35 07/15/16 10:35 07/15/16 10:35 07/15/16 10:35 07/15/16 10:35 General appearance: Present: mild distress, A&O X 3, morbidly obese, pleasant, answers questions appropriately - Head Head exam: Present: atraumatic, normocephalic - Eye Eye exam: Present: normal appearance. Absent: conjunctival injection - ENT ENT exam: Present: mucous membranes moist, normal external ear exam Additional comments: nasal canula in place - Neck Neck exam general surgery: Present: supple, trachea midline - Respiratory Respiratory exam: Present: CTAB. Absent: rales, rhonchi, stridor, wheezes - Cardiovascular Cardiovascular exam: Present: RRR, +S1, +S2. Absent: clicks, diastolic murmur, gallop, rubs, systolic murmur - GI/Abdominal GI/Abdominal exam: Present: normal bowel sounds, soft. Absent: distended, guarding, rebound, tenderness - Extremities Exam Extremities exam: Present: normal capillary refill. Absent: pedal edema Additional comments: hesmoderin deposits seen bilateral feet - Psychiatric Psychiatric exam: Present: anxious Internal Medicine: Result - Labs CBC & Chem 7: 07/14/16 04:07 07/15/16 07:34 Labs: BMP 07/15/16 07:34 Sodium 140 Potassium 4.1 Chloride 101 Carbon Dioxide 31 H BUN 18 Creatinine 0.70 Glucose 212 H Calcium 8.6 - ABG Interpretation ABG results: PT/INR, D-dimer PT 9.9 Seconds (9.4-12.1) 07/14/16 04:07 Consult Discharge Plan - Plan Instructions: Chronic Obstructive Pulmonary Disease (GEN), Chronic Bronchitis ( GEN), Flexible Bronchoscopy (GEN), COPD Exacerbation, [employer] (GEN) Referrals: Eddie Whitley MD [Primary Care Provider] - <Robert Haley - Last Filed: 07/15/16 16:27> - Constitutional Vitals: Temp Pulse Resp BP Pulse Ox 98.0 F 89 14 123/69 94 L 07/15/16 15:27 07/15/16 15:27 07/15/16 15:27 07/15/16 15:27 07/15/16 15:27 Internal Medicine: Result - Labs CBC & Chem 7: 07/14/16 04:07 07/15/16 07:34 Labs: BMP 07/15/16 07:34 Sodium 140 Potassium 4.1 Chloride 101 Carbon Dioxide 31 H BUN 18 Creatinine 0.70 Glucose 212 H Calcium 8.6 - ABG Interpretation ABG results: PT/INR, D-dimer PT 9.9 Seconds (9.4-12.1) 07/14/16 04:07 - Attending Attestation Hypoxic acute on chronic respiratory failure secondary to acute COPD exacerbation due to healthcare associated pneumonia present upon admission versus community-acquired pneumonia De-escalate antibiotic therapy Stop Zosyn and vancomycin, start Unasyn Decrease dose of IV steroids/Solu-Medrol 40 mg twice a day Follow-up with pulmonary services as an outpatient, will require CT scan of the chest within the next 4-6 weeks versus a PET scan, may need a biopsy I examined this patient and my medical decision-making was reviewed with the SHORTAGE WORKER/PA/Advanced Practice Nurse/Resident Physician. I agree with the documented findings, disposition and treatment plan as described except to the extent set forth below.
[2016-07-15] MEDS: Famotidine 20 MG/2 ML VIAL IVP SCH (18:08)
[2016-07-15] MEDS: Ampicillin/Sulbactam 1,500 MG in 0.9 % Sodium Chloride Mini Bag 100 ML IVPB SCH ×2 (18:10→18:12)
[2016-07-15] MEDS ORDERED: Insulin LISPRO 300 UNITS/3 ML VIAL SQ ONE (23:21)
[2016-07-16] MEDS ORDERED: Lisinopril 20 MG TABLET PO SCH (00:34)
[2016-07-16] MEDS ORDERED: Insulin DETEMIR 100 UNIT/ML X5UNITS SQ ONE (01:00)
[2016-07-16] MEDS: Ampicillin/Sulbactam 1,500 MG in 0.9 % Sodium Chloride Mini Bag 100 ML IVPB SCH ×5 (01:06→23:39)
[2016-07-16] MEDS: Ipratropium/Albuterol Neb 3 ML IH SCH ×4 (04:25→23:21)
[2016-07-16] MEDS: *HR* Heparin 5,000 UNIT/ML VIAL SQ SCH ×2 (05:09→18:06)
[2016-07-16] MEDS: Aspirin 81 MG TAB.CHEW PO SCH (08:34)
[2016-07-16] MEDS: Insulin LISPRO 300 UNITS/3 ML VIAL SQ SCH ×5 (08:35→20:53)
[2016-07-16] MEDS: clonazePAM 0.5 MG TABLET PO SCH ×2 (08:35→20:52)
[2016-07-16] MEDS: Lisinopril 20 MG TABLET PO SCH (08:35)
[2016-07-16] MEDS: MethylPREDNISolone 40 MG/ML VIAL IVP SCH ×2 (08:37→20:51)
[2016-07-16] MEDS: Insulin DETEMIR 100 UNIT/ML X5UNITS SQ SCH ×2 (08:39→20:52)
[2016-07-16] MEDS: Budesonide/Formoterol 160/4.5 MDI IH SCH ×2 (10:33→23:21)
--- NOTE | 2016-07-16 11:39 | Internal Med Progress Note ---
<Rand Cintron - Last Filed: 07/16/16 11:30> Date of Encounter: 07/16/16 Time of Encounter: 11:30 - Assessment and plan (1) Pneumonia Current Visit: No Status: Acute Assessment and plan: Present on admission. Initially treated for health care associated pnuemonia with recent hospitalization. Patient was hospitalized 3 weeks ago for pneumonia, discharged with antibiotics. She was admitted on 07/11/16 for COPD exacerbation. She is clinically stable and has persistent anxiety about her health issues. Received 5 days of vancomycin, 4 days of zosyn. Both currently discontinued Continue unasyn, currently day 2. Will plan to transition to augmentin on discharge Continue IV steroids, has been weaned to q 12 hours. Will plan on taper on discharge Chest X-Ray 07/11/16 16:31 IMPRESSION: Increased interstitial opacity in the parahilar regions and lung bases likely representing edema. Pneumonia/infiltrate not excluded. D/ / Nazia Russo MD / Nazia Russo MD Interpreting Provider: Nazia Russo MD Chest CTA 07/11/16 19:51 IMPRESSION: No PE identified. Patchy nodular infiltrates within the left lung with trace left pleural effusion. Correlate for pneumonia. Pulmonary emphysema with spiculated nodule within the right upper lobe. Recommend further workup. Chest CT 07/12/16 08:34 IMPRESSION: 1. Small left pleural effusion with multifocal airspace consolidation within the lingula and left lower lobe, most likely multifocal pneumonia. 2. Multiple ground-glass and nodular opacities within the left upper lobe are felt to be infectious or inflammatory in etiology, likely the continuum of the patient's multifocal pneumonia. Metastatic disease is considered less likely, though not excluded. 3. Persistent 1.8 x 1.0 cm spiculated nodule within the right lung apex, highly concerning for primary pulmonary malignancy. Consider a follow-up PET-CT study to evaluate the metabolic nature of this abnormality. 4. Mild mediastinal lymphadenopathy, which could represent metastatic disease, and this could also be assessed on a PET-CT study. D/ / 07/12/2016 15:28:55 Daryl Quiñonez MD / joel Interpreting Provider: Daryl Quiñonez MD Qualifiers: Pneumonia type: due to unspecified organism Laterality: left Lung location: unspecified part of lung Qualified Code(s): J18.9 - Pneumonia, unspecified organism (2) COPD with exacerbation Current Visit: Yes Status: Acute Assessment and plan: Continues to slowly improve Other treatment as per pneumonia above Continue home Spiriva and albuterol, Symbicort has been added this hospitalization (3) COPD (chronic obstructive pulmonary disease) Current Visit: Yes Status: Acute Assessment and plan: No formal diagnosis Patient has never had a PFT, would benefit from one in 6-8 weeks as outpatient to establish baseline lung function Current oxygen requirement may be secondary to progression of underlying disease vs infection. Pulmonology following, appreciate input and expertise. Qualifiers: COPD type: COPD with acute exacerbation Qualified Code(s): J44.1 - Chronic obstructive pulmonary disease with (acute) exacerbation (4) Acute and chronic respiratory failure Current Visit: Yes Status: Acute Assessment and plan: Secondary to pneumonia and COPD exacerbation leading to increased oxygen requirements Patient was started on supplemental oxygenation during her most recent admission last week. She is currently on 3 L per nasal cannula continuously. Continue supplemental oxygen as needed to maintain SpO2 > 88% Qualifiers: Respiratory failure complication: unspecified whether with hypoxia or hypercapnia Qualified Code(s): J96.20 - Acute and chronic respiratory failure , unspecified whether with hypoxia or hypercapnia (5) Diabetes Current Visit: No Status: Chronic Assessment and plan: A1c 8.5%. Expect hyperglycemia with addition of steroids Continue sliding scale TID with meals and QHS. Continue basal insulin. 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 Continue metoprolol, lisinopril. Qualifiers: Hypertension type: essential hypertension Qualified Code(s): I10 - Essential (primary) hypertension (7) Tobacco abuse Current Visit: No Status: Chronic Assessment and plan: Patient used to smoke 1-1/2 packs per day for 50 years and stopped last month. No cigarettes in 1 month. (8) Lung mass Current Visit: Yes Status: Acute Assessment and plan: Spiculated lung mass noted on imaging with suspicious mediastinal lymphadenopathy. Concern for underlying malignancy. Follow-up outpatient with oncology for PET scanning. Pulmonology consulted will plan to do outpatient bronchoscopy. (9) Anxiety about health Current Visit: Yes Status: Chronic Assessment and plan: Continue clonazepam with IV ativan for breakthrough anxiety She remains anxious about her health and what lead her to this condition, continues to ask questions about future plans and need for oxygen requirements as she improves. . (10) Diastolic heart failure Current Visit: Yes Status: Chronic Assessment and plan: Echocardiogram 06/20/16 with LVEF 65-70%and mild diastolic dysfunction. Qualifiers: Heart failure chronicity: chronic Qualified Code(s): I50.32 - Chronic diastolic (congestive) heart failure - Subjective Interval history: Patient seen and examined this morning, she is sitting on bed. Patient admitted for acute on chronic respiratory failure secondary to health care associated pneumonia and COPD exacerbation. She was discovered to have a right upper lung nodule on CT scan concerning for malignancy. She has been very anxious about her heart, as she was diagnosed with diastolic dysfunction last admission. She is also very anxious about her pneumonia and lung nodule. She has been very concerned this admission over termite control service representative use of oxygen. This morning, patient states that she is feeling better from yesterday. She feels like her breathing has continued to improve. She states she did cough up some sputum last night but has not coughed up any since that time. She is tolerating diet with no nausea or vomiting. She has no other acute concerns or complaints at this time. - Constitutional Vitals: Temp Pulse Resp BP Pulse Ox 97.7 F 77 15 153/74 97 07/16/16 11:13 07/16/16 11:13 07/16/16 11:13 07/16/16 11:13 07/16/16 11:13 General appearance: Present: mild distress, A&O X 3, morbidly obese, pleasant, answers questions appropriately - Head Head exam: Present: atraumatic, normocephalic - Eye Eye exam: Present: normal appearance. Absent: conjunctival injection - ENT ENT exam: Present: mucous membranes moist, normal external ear exam Additional comments: nasal canula in place - Neck Neck exam general surgery: Present: supple, trachea midline - Respiratory Respiratory exam: Present: wheezes (scattered end expiratory wheezes bilaterally ). Absent: accessory muscle use, rales, respiratory distress, rhonchi - Cardiovascular Cardiovascular exam: Present: RRR, +S1, +S2. Absent: clicks, diastolic murmur, gallop, rubs, systolic murmur - GI/Abdominal GI/Abdominal exam: Present: normal bowel sounds, soft. 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) Referrals: Eddie Whitley MD [Primary Care Provider] - <Robert Haley H - Last Filed: 07/16/16 13:06> - Constitutional Vitals: Temp Pulse Resp BP Pulse Ox 97.7 F 77 15 153/74 97 07/16/16 11:13 07/16/16 11:13 07/16/16 11:13 07/16/16 11:13 07/16/16 11:13 Internal Medicine: Result - Labs CBC & Chem 7: 07/14/16 04:07 07/15/16 07:34 - ABG Interpretation ABG results: PT/INR, D-dimer PT 9.9 Seconds (9.4-12.1) 07/14/16 04:07 - Attending Attestation Hypoxic acute on chronic respiratory failure secondary to acute COPD exacerbation due to healthcare associated pneumonia present upon admission versus community-acquired pneumonia De-escalated antibiotic therapy Stopped Zosyn and vancomycin on 07/15/16 Day 2 of Unasyn Decreased dose of IV steroids/Solu-Medrol 40 mg twice a day Follow-up with pulmonary services as an outpatient, will require CT scan of the chest within the next 4-6 weeks versus a PET scan, may need a biopsy I examined this patient and my medical decision-making was reviewed with the APPAREL CUTTER/PA/Advanced Practice Nurse/Resident Physician. I agree with the documented findings, disposition and treatment plan as described except to the extent set forth below. continue IV steroids and Unasyn
[2016-07-16] MEDS: Famotidine 20 MG/2 ML VIAL IVP SCH (18:06)
[2016-07-17] MEDS: Ipratropium/Albuterol Neb 3 ML IH SCH ×2 (04:51→11:04)
[2016-07-17] MEDS: *HR* Heparin 5,000 UNIT/ML VIAL SQ SCH (06:40)
[2016-07-17] MEDS: Ampicillin/Sulbactam 1,500 MG in 0.9 % Sodium Chloride Mini Bag 100 ML IVPB SCH (06:40)
[2016-07-17] MEDS: Insulin LISPRO 300 UNITS/3 ML VIAL SQ SCH ×2 (09:14→09:15)
[2016-07-17] MEDS: MethylPREDNISolone 40 MG/ML VIAL IVP SCH (09:14)
[2016-07-17] MEDS: clonazePAM 0.5 MG TABLET PO SCH (09:15)
[2016-07-17] MEDS: Aspirin 81 MG TAB.CHEW PO SCH (09:15)
[2016-07-17] MEDS: Lisinopril 20 MG TABLET PO SCH (09:15)
[2016-07-17] MEDS: Insulin DETEMIR 100 UNIT/ML X5UNITS SQ SCH (09:18)
--- NOTE | 2016-07-17 09:56 | Discharge Summary ---
<Rand iCntron - Last Filed: 07/17/16 10:53> Date of Encounter: 07/16/16 Time of Encounter: 09:51 - Discharge Diagnosis (1) Pneumonia Priority: Primary Status: Acute Comments: Present on admission. Initially treated for health care associated pneumonia with 4 days of vancomycin and zosyn, has been transitioned to unasyn for 3 days. Will be discharged home with 2 additional days of augmentin to complete course. She was recetly admitted on 07/11/16 for COPD exacerbation and treated with antibiotics and steroids. She was discharged on oxygen. She has persistent anxiety about her health issues. She has receive IV steroids, will discharge on prednisone taper (40 mg for 3 days, 30 mg for 3 days, 20 mg for three days, 10 mg for 3 days) She should follow up with pulmonology as recommended elsewhere as outpatient Qualifiers: Pneumonia type: due to unspecified organism Laterality: left Lung location: unspecified part of lung Qualified Code(s): J18.9 - Pneumonia, unspecified organism (2) COPD with exacerbation Priority: Primary Status: Acute Comments: Secondary to pneumonia which was present on admission Continue home spriva and albuterol Continue symbicort as added this hospitalization Steroids as per pneumonia treatment (3) COPD (chronic obstructive pulmonary disease) Priority: Primary Status: Acute Comments: No formal diagnosis, patient has extensive smoking history Has never had a PFT, would likely benefit from one as outpatient in 6-8 weeks once has returned closer to baseline lung function Pulmonology consulted this hospital stay, will follow up as outpatient Qualifiers: COPD type: COPD with acute exacerbation Qualified Code(s): J44.1 - Chronic obstructive pulmonary disease with (acute) exacerbation (4) Acute and chronic respiratory failure Priority: Primary Status: Acute Comments: Secondary to pneumonia and COPD exacerbation leading to increased oxygen requirements At last hospitalization, was discharged on supplemental oxygen Currentlyr equiring anywhere between 2-3L nasal canula Continue supplemental oxygen as needed to maintain SpO2 > 88% Qualifiers: Respiratory failure complication: unspecified whether with hypoxia or hypercapnia Qualified Code(s): J96.20 - Acute and chronic respiratory failure , unspecified whether with hypoxia or hypercapnia (5) Diabetes Priority: Secondary Status: Chronic Comments: Last A1c 8.5% with addition of steroids will expect some hyperglycemia Will transition back to home medication on discharge Was placed on novolog 10 units TID with meals and sliding scale while inpatient Qualifiers: Diabetes mellitus type: type 2 Diabetes mellitus complication status: with hyperglycemia Diabetes mellitus senior living insulin use: without terminal makeup operator use Qualified Code(s): E11.65 - Type 2 diabetes mellitus with hyperglycemia (6) Hypertension Priority: Secondary Status: Chronic Comments: Blood pressures stable Continue home metoprolol and lisinopril Qualifiers: Hypertension type: essential hypertension Qualified Code(s): I10 - Essential (primary) hypertension (7) Tobacco abuse Status: Chronic (8) Lung mass Priority: Primary Status: Acute Comments: Spiculated lung mass measuring 1.8 x 1.0 cm in right upper lobe with associated mediastinal lymphadenopathy concerning for malignancy Recommend further outpatient follow up with pulmonology for possible bronchoscopy and consideration of PET scan Consider consultation with hematology/oncology as outpatient (9) Anxiety about health Priority: Secondary Status: Chronic Comments: Patient has had persistent anxiety about her health issues, her recently diagnoised mild diastolic dysfunction of heart diagnoised last visit, the fact that she is now requiring oxygen and a multitude of other issues. She was started on clonezepam, will plan to give script for 1 week She will need further follow up and treatment as outpatient. (10) Diastolic heart failure Priority: Secondary Status: Chronic Comments: Echocardiogram on 06/20/16 with LVEF 65-70% and mild diastolic dysfunction Qualifiers: Heart failure chronicity: chronic Qualified Code(s): I50.32 - Chronic diastolic (congestive) heart failure - Discharge Medications Prescriptions: Amoxicillin/Clavulanate [Augmentin] 875 mg PO BIDWM #5 tablet Budesonide/Formoterol 160/4.5 [Symbicort 160/4.5] 2 puff IH BIDR #1 inhaler ClonazePAM [Klonopin] 0.25 mg PO BID #14 tablet PredniSONE 10 mg PO DAILY #84 tablet Home Medications: Albuterol Sulfate [Albuterol Inhaler] 2 puff IH Q4H PRN 06/17/16 [History] Aspirin Enteric Coated [Aspirin EC] 81 mg PO DAILY 06/17/16 [History] Fenofibrate 54 mg PO DAILY 06/17/16 [History] Glimepiride [Amaryl] 4 mg PO BID 06/17/16 [History] Lisinopril [Zestril] 20 mg PO DAILY 06/17/16 [History] Metformin HCl 1,000 mg PO BID 06/17/16 [History] Pioglitazone [Actos] 15 mg PO DAILY 06/17/16 [History] Simvastatin [Zocor] 20 mg PO HS 06/17/16 [History] Tiotropium [place] [Spiriva] 18 mcg IH DAILY 06/17/16 [History] Albuterol Neb [Proventil Neb] 2.5 mg IH Q4HR PRN 30 Days 06/23/16 [Rx] Furosemide [Lasix] 20 mg PO BIDDIURETIC #30 tablet 06/23/16 [Rx] Metoprolol [Lopressor] 25 mg PO BID #30 tablet 06/23/16 [Rx] Nicotine Patch [Nicoderm] 21 mg TD DAILY #20 patch.td24 06/23/16 [Rx] Zolpidem Tartrate 5 mg PO HS 07/11/16 [History] Amoxicillin/Clavulanate [Augmentin] 875 mg PO BIDWM #5 tablet 07/17/16 [Rx] Budesonide/Formoterol 160/4.5 [Symbicort 160/4.5] 2 puff IH BIDR #1 inhaler [Rx] ClonazePAM [Klonopin] 0.25 mg PO BID #14 tablet 07/17/16 [Rx] PredniSONE 10 mg PO DAILY #84 tablet 07/17/16 [Rx] Allergies/Adverse Reactions: Allergies levofloxacin [From Levaquin] Allergy (Verified 06/18/16 15:41) See Comments bilateral leg swelling - Notes to Outpatient Provider Chest X-Ray 07/11/16 16:31 IMPRESSION: Increased interstitial opacity in the parahilar regions and lung bases likely representing edema. Pneumonia/infiltrate not excluded. D/ / Nazia Russo MD / Nazia Russo MD Interpreting Provider: Nazia Russo MD Chest CTA 07/11/16 19:51 IMPRESSION: No PE identified. Patchy nodular infiltrates within the left lung with trace left pleural effusion. Correlate for pneumonia. Pulmonary emphysema with spiculated nodule within the right upper lobe. Recommend further workup. Chest CT 07/12/16 08:34 IMPRESSION: 1. Small left pleural effusion with multifocal airspace consolidation within the lingula and left lower lobe, most likely multifocal pneumonia. 2. Multiple ground-glass and nodular opacities within the left upper lobe are felt to be infectious or inflammatory in etiology, likely the continuum of the patient's multifocal pneumonia. Metastatic disease is considered less likely, though not excluded. 3. Persistent 1.8 x 1.0 cm spiculated nodule within the right lung apex, highly concerning for primary pulmonary malignancy. Consider a follow-up PET-CT study to evaluate the metabolic nature of this abnormality. 4. Mild mediastinal lymphadenopathy, which could represent metastatic disease, and this could also be assessed on a PET-CT study. Date of admission: 07/11/16 23:18 Primary care physician: Eddie Whitley Consults: 07/12/16 15:34 Consult to Pulmonology [CONS] Routine Consulting Provider: [facility] [place] Reason for Consult: multifocal pna with recent admission for same. mucous plugging to LLL. spiculated mass with mediastinal lymphadenopathy of unknown etiolgy. will make NPO at midnight for possible bronch? Time Notified: 15:36 Call Completed: Yes 07/16/16 14:54 Consult to Invasive Line Access Team [CONS] Routine Reason for Consult: limited access Line Type: EPIV Discharging clinician: Robert Haley Anticipated date of discharge: 07/17/16 - Patient Status Disposition: Home, Self-Care Condition: Good Functional capacity at discharge: independent ambulation Overall status at discharge: patient is progressing back to baseline - Discharge Instructions Instructions: Chronic Obstructive Pulmonary Disease (GEN), Chronic Bronchitis ( GEN), Flexible Bronchoscopy (GEN), COPD Exacerbation, Shot Coat Tender (GEN) Follow Up With: Eddie Whitley MD [Primary Care Provider] - Additional Instructions: Please follow up with pulmonology - Diet and Activity Activity: increase activity as tolerated, wear oxygen at all times Diet: diabetic diet Interval History: 71 year old female with a history of COPD, diabetes, hyperlipidemia, hypertension and depression. Patient presented to the ED for shortness of breath and chest heaviness that has progressively worsened. She was admitted for COPD exacerbation with acute respiratory hypoxia requiring an increase in supplemental oxygen as well as concerns over health care associated pneumonia.CT angio ordered in ER negative for PE but significant for right upper lobe mass. Follow up CT Chest significant for 1.8 x 1.0 cm right upper lobe spiculated mass with associated mediastinal lymphadenopathy concerning for lung cancer. Patient and family requested bronchoscopy and PET scan while inpatient. Pulmonology consulted, recommended bronchoscopy as outpatient and consultation with hematology/oncology outpatient for PET scan. Patient did quit smoking 1 month ago, however has signifcant history of smoking 1.5 packs/50 years. Of note, patient was recently admitted on 06/17/16 to 06/23/16 for pneumonia and mitral stenosis and discharged with steroids, Lasix and continuous supplemental oxygen. Patient initially required 3L supplemental oxygen, but was weaned back down to 2l which is what she had been discharged on previously prior to discharge.She received 4 days of IV zosyn and vancomycin for concerns of health care associated pneumonia before being transitioned to a 2 day additional course of IV unasyn. She will be discharged with an additional 2 day course of augmentin. She received IV steroids and was weaned from q 8 hours to q 12 hours and will be discharged with a prolonged oral prednisone taper lasting 12 days. Her hypertension remained well controlled on her home medications. She was transitioned to mealtime novolog and home diabetes medications held while inpatient, she shoudl resume her home medications on discharge. She remained persistently anxious over her multitude of new health issues, clonezapam added which seemed to help. She will be discharged with a 1 week course with recommended follow up outpatient. She was recently diagnosed on last admission with diastolic heart failure with preserved ejection fraction, she remained euvolumic during hospitalization. She will need outpatient follow up with pulmonology and hematology/oncology. She was recommended to follow up with ehr PCP for consideration of home health. On the day of discharge, she was clinically stable, back to baseline 2L nasal canula and had stable vitals. Hospital course: Ms. Conroy is a 71 year old female - Time Spent with Patient Total time spent providing and/or coordinating discharge services: - Constitutional Vitals: Temp Pulse Resp BP Pulse Ox 97.9 F 72 16 157/69 98 07/17/16 07:45 07/17/16 07:45 07/17/16 07:45 07/17/16 07:45 07/17/16 07:45 General appearance: Present: mild distress, A&O X 3, morbidly obese, pleasant, answers questions appropriately - Head Head exam: Present: atraumatic, normocephalic - Eye Eye exam: Present: normal appearance. Absent: conjunctival injection - ENT ENT exam: Present: mucous membranes moist, normal external ear exam Additional comments: nasal canula in place - Neck Neck exam general surgery: Present: supple, trachea midline - Respiratory Respiratory exam: Present: wheezes (scattered end expiratory bilaterally ). Absent: accessory muscle use, rales, rhonchi, stridor - Cardiovascular Cardiovascular exam: Present: RRR, +S1, +S2. Absent: clicks, diastolic murmur, gallop, rubs, systolic murmur - GI/Abdominal GI/Abdominal exam: Present: normal bowel sounds, soft. Absent: distended, guarding, rebound, tenderness - Extremities Exam Extremities exam: Present: normal capillary refill. Absent: pedal edema - Psychiatric Psychiatric exam: Present: normal affect, normal mood <Robert Haley H - Last Filed: 07/17/16 11:04> Date of Encounter: 07/16/16 Date of admission: 07/11/16 23:18 Primary care physician: Eddie Whitley Consults: 07/12/16 15:34 Consult to Pulmonology [CONS] Routine Consulting Provider: [facility] [place] Reason for Consult: multifocal pna with recent admission for same. mucous plugging to LLL. spiculated mass with mediastinal lymphadenopathy of unknown etiolgy. will make NPO at midnight for possible bronch? Time Notified: 15:36 Call Completed: Yes 07/16/16 14:54 Consult to Invasive Line Access Team [CONS] Routine Reason for Consult: limited access [facility] course: Ms. Conroy is a 71 year old female - Time Spent with Patient Total time spent providing and/or coordinating discharge services: - Constitutional Vitals: Temp Pulse Resp BP Pulse Ox 97.9 F 72 16 157/69 98 07/17/16 07:45 07/17/16 07:45 07/17/16 07:45 07/17/16 07:45 07/17/16 07:45 - Attending Attestation Hypoxic acute on chronic respiratory failure secondary to acute COPD exacerbation due to healthcare associated pneumonia present upon admission versus community-acquired pneumonia De-escalated antibiotic therapy Stopped Zosyn and vancomycin on 07/15/16 Unasyn was started , patient was stable taper prednisone Follow-up with pulmonary services as an outpatient, will require CT scan of the chest within the next 4-6 weeks versus a PET scan, may need a biopsy I examined this patient and my medical decision-making was reviewed with the MARINE STRUCTURAL WELDER/PA/Advanced Practice Nurse/Resident Physician. I agree with the documented findings, disposition and treatment plan as described except to the extent set forth below. Time spent on this discharge 40 min
[2016-07-17] MEDS: Budesonide/Formoterol 160/4.5 MDI IH SCH (11:04)
[2016-07-17 11:17] VITALS: BP 143/70
--- NOTE | 2016-07-17 11:30 | Physician Discharge Referral ---
<Rand Cintron - Last Filed: 07/17/16 11:30> Home Health/Hosp Referral Info Transfer to: Home Health Provider in Charge Post Discharge: PCP - Diagnosis (1) Pneumonia Status: Acute (2) COPD with exacerbation Status: Acute (3) COPD (chronic obstructive pulmonary disease) Status: Acute (4) Acute and chronic respiratory failure Status: Acute (5) Diabetes Status: Chronic (6) Hypertension Status: Chronic (7) Tobacco abuse Status: Chronic (8) Lung mass Status: Acute (9) Anxiety about health Status: Chronic (10) Diastolic heart failure Status: Chronic - Respiratory Orders Smoking Cessation: Smoking cessation has been advised. For more information, call the [place] Tobacco Quit Line at 0-525-QTNP-NOW. - Transfer Medications Prescriptions: Amoxicillin/Clavulanate [Augmentin] 875 mg PO BIDWM #5 tablet Budesonide/Formoterol 160/4.5 [Symbicort 160/4.5] 2 puff IH BIDR #1 inhaler ClonazePAM [Klonopin] 0.25 mg PO BID #14 tablet PredniSONE 10 mg PO DAILY #84 tablet Home Medications: Albuterol Sulfate [Albuterol Inhaler] 2 puff IH Q4H PRN 06/17/16 [History] Aspirin Enteric Coated [Aspirin EC] 81 mg PO DAILY 06/17/16 [History] Fenofibrate 54 mg PO DAILY 06/17/16 [History] Glimepiride [Amaryl] 4 mg PO BID 06/17/16 [History] Lisinopril [Zestril] 20 mg PO DAILY 06/17/16 [History] Metformin HCl 1,000 mg PO BID 06/17/16 [History] Pioglitazone [Actos] 15 mg PO DAILY 06/17/16 [History] Simvastatin [Zocor] 20 mg PO HS 06/17/16 [History] Tiotropium [place] [Spiriva] 18 mcg IH DAILY 06/17/16 [History] Albuterol Neb [Proventil Neb] 2.5 mg IH Q4HR PRN 30 Days 06/23/16 [Rx] Furosemide [Lasix] 20 mg PO BIDDIURETIC #30 tablet 06/23/16 [Rx] Metoprolol [Lopressor] 25 mg PO BID #30 tablet 06/23/16 [Rx] Nicotine Patch [Nicoderm] 21 mg TD DAILY #20 patch.td24 06/23/16 [Rx] Zolpidem Tartrate 5 mg PO HS 07/11/16 [History] Amoxicillin/Clavulanate [Augmentin] 875 mg PO BIDWM #5 tablet 07/17/16 [Rx] Budesonide/Formoterol 160/4.5 [Symbicort 160/4.5] 2 puff IH BIDR #1 inhaler [Rx] ClonazePAM [Klonopin] 0.25 mg PO BID #14 tablet 07/17/16 [Rx] PredniSONE 10 mg PO DAILY #84 tablet 07/17/16 [Rx] Allergies/Adverse Reactions: Allergies levofloxacin [From Levaquin] Allergy (Verified 06/18/16 15:41) See Comments bilateral leg swelling Certification: Further, I certify that my clinical findings support that this patient is homebound (i.e. absences from home require considerable and taxing effort and are for medical reasons or bahai services or infrequently or short duration when for other reasons) because: Attestation: My signature below is to certify that this patient is under my care and that I, or nurse practitioner, or a physician's nurse's assistant working with me, has a face-to -face encounter with this patient. <Robert Haley - Last Filed: 07/17/16 11:40> - Respiratory Orders Smoking Cessation: Smoking cessation has been advised. For more information, call the [place] Tobacco Quit Line at 9-806-FTZZ-NOW. Certification: Further, I certify that my clinical findings support that this patient is homebound (i.e. absences from home require considerable and taxing effort and are for medical reasons or bahai services or infrequently or short duration when for other reasons) because: Homebound Reason: Patient requires assistance of a person or device to safely leave home Attestation: My signature below is to certify that this patient is under my care and that I, or nurse practitioner, or a physician's nurse's assistant working with me, has a face-to -face encounter with this patient. Follow-up with primary care physician, continue Augmentin for 2 more days. Taper prednisone Follow-up with pulmonary services as an outpatient, will require CT scan of the chest within the next 4-6 weeks versus a PET scan, may need a biopsy I examined this patient and my medical decision-making was reviewed with the TRUCK SALES MANAGER/PA/Advanced Practice Nurse/Resident Physician. I agree with the documented findings, disposition and treatment plan as described except to the extent set forth below.
== END 2016-07-17 14:11 | disposition home or self-care (01) | DRG 190 ==
LOC: 3BNU 16:11 → EMEROO 16:11 → 3BNU 22:32 → SUATTDRO 23:18
PROVIDERS: ADMIT Internal Medicine; ATTEND Internal Medicine

== ENCOUNTER 2017-10-02 03:18 | Observation (INO) ==
[2017-10-02] MEDS ORDERED: Albuterol 2.5 MG/3 ML NEBULIZER IH ONE (03:25)
[2017-10-02] MEDS ORDERED: Ipratropium/Albuterol Neb 3 ML IH ONE (03:25)
--- NOTE | 2017-10-02 03:35 | Emergency Department Note ---
Disposition Clinical Impression: Acute exacerbation of chronic obstructive airways disease Congestive heart failure Qualifiers: Heart failure type: unspecified Heart failure chronicity: unspecified Qualified Code(s): I50.9 - Heart failure, unspecified Acute and chronic respiratory failure Qualifiers: Respiratory failure complication: hypoxia Qualified Code(s): J96.21 - Acute and chronic respiratory failure with hypoxia Disposition: Admitted As Inpatient Condition: Fair Time of Disposition: 06:29 SOB HPI - General Chief Complaint: ED Shortness of Breath/Dyspnea Stated Complaint: sob Time Seen by Provider: 10/02/17 05:23 Source: EMS Limitations: no limitations Nursing Notes Reviewed: Yes Vital Signs Reviewed: Yes - History of Present Illness 72-year-old female history of shortness of breath presents complaining of worsening shortness of breath today, she states she is on chronically on 3 L of oxygen, she is brought in by EMS for worsening exertional dyspnea. Chest discomfort, is also some leg swelling that she had not had previously, she said she was admitted to the hospital months ago at [facility] patient has no hemoptysis, no unilateral leg swelling, no history DVT or PE. Patient states that she has had more cough and congestion lately. Patient states she has had more dyspnea, with laying supine, and more exertional dyspnea than normal. Per EMS they gave 2 duo nebs and 1 IM injection of Solu-Medrol 125. Pt Subjective Complaint: shortness of breath Context: occurred during exertion Severity: moderate Consistency/Duration: intermittent Improves with: nothing Worsens with: nothing Known history of: congestive heart failure Associated symptoms: Reports: cough, wheezing. Denies: chest pain, pain with inspiration, sputum production, orthopnea, lower extremity pain Treatment prior to arrival: none Cough present: Yes Cough Description: Voluntary Cough Frequency: Intermittent Sputum production: Yes - Related Data Home oxygen amount: 3 liters Home Medications Medication Instructions Recorded Confirmed Albuterol Sulfate [Albuterol 2 puff IH Q4H PRN 06/17/16 10/02/17 Inhaler] Aspirin Enteric Coated [Aspirin EC] 81 mg PO DAILY 06/17/16 10/02/17 Glimepiride [Amaryl] 4 mg PO BID 06/17/16 10/02/17 Lisinopril [Zestril] 20 mg PO DAILY 06/17/16 10/02/17 Simvastatin [Zocor] 20 mg PO HS 06/17/16 10/02/17 Tiotropium [place] [Spiriva] 18 mcg IH DAILY 06/17/16 10/02/17 Oxygen 3 l IH DAILY 03/05/17 10/02/17 Metformin HCl 500 mg PO BID 10/02/17 10/02/17 Previous Rx's Medication Instructions Recorded Albuterol Neb [Proventil Neb] 2.5 mg IH Q4HR PRN 30 Days 06/23/16 vial.neb Budesonide/Formoterol 160/4.5 2 puff IH BIDR #1 inhaler 07/17/16 [Symbicort 160/4.5] Allergies Allergy/AdvReac Type Severity Reaction Status Date / Time levofloxacin [From Levaquin] Allergy Intermediate See Verified 08/01/17 12:53 Comments All systems ED: reviewed and negative except as stated. Review of Systems: As Per HPI Constitutional: Denies: fever, chills Eyes: Denies: eye pain ENT ED: Denies: ear pain Cardiovascular: Denies: chest pain Respiratory: Reports: as per HPI, cough, dyspnea, wheezes Gastrointestinal: Denies: abdominal pain, nausea Genitourinary: Denies: urgency Musculoskeletal: Denies: back pain Integumentary: Denies: rash Neurological: Denies: headache Past Medical History - Past Medical History Attestation: Yes The following information was validated with the patient. Source: patient Medical history: Reports: COPD, diabetes Psychiatric history: Reports: anxiety, depression - Social History Smoking Status: Never smoker Smokeless Tobacco Status: No Alcohol use: Reports: none Drug use: Reports: none Physical Exam Constitutional: Obese tremulous elderly female appears in mild respiratory distress Neck: normal inspection, neck is supple, no JVD Resp: normal chest inspection, diminished aeration, scattered wheezes bilaterally inspiratory and expiratory CV: Tachycardia no murmurs/gallops/rubs, S1 and S2 heard Extremity: +2 bilateral radial and posterial tibial pulses, +2 pitting edema bilaterally GI: normal inspection, Soft, obese, NTND, no peritoneal signs, no palpable abdominal aortic aneurysm Skin: No rashes, skin warm, dry, intact - General Limitations: no limitations General appearance: alert Course Course Narrative: Patient with a rate a mixed respiratory distress picture, concern for COPD exacerbation also in the setting CHF exacerbation she is pitting edema she states she has never had CHF, she is diabetic, she guarding. 125 of slight Medrol IM setting that adequate steroid coverage, the patient was given 2 DuoNeb so added an additional DuoNeb and 5 miles of albuterol, for breathing treatment given that she is course in diffusely wheezy, oxygen was 84% was recorded by EMS in route, initially on 2 L, up to 3 L she is now satting 92%, - Reevaluation(s) Reevaluation #1: Accepted by hospitalist Dr Vasquez for admission Time: 06:29 Vital Signs Temperature 98.1 F 10/02/17 03:20 Pulse Rate 117 10/02/17 03:20 Respiratory Rate 24 10/02/17 03:20 Blood Pressure 149/89 10/02/17 03:20 O2 Sat by Pulse Oximetry 92 10/02/17 03:20 Temperature 98.1 F 10/02/17 03:20 Pulse Rate 106 10/02/17 04:18 Respiratory Rate 20 10/02/17 04:18 Blood Pressure 147/65 10/02/17 04:18 O2 Sat by Pulse Oximetry 96 10/02/17 04:18 Oxygen Delivery Oxygen Delivery Aerosol Mask Shortness of Breath/Dyspnea - Differential Diagnosis Likely: acute exacerbation of chronic obstructive airways disease, congestive heart failure, pneumonia - Medical Records Medical records reviewed: Yes I reviewed the patient's medical records. - Lab Data Lab results reviewed: Yes I reviewed the patient's lab results. Result diagrams: 10/02/17 03:28 10/02/17 03:28 Lab Results 10/02/17 10/02/17 10/02/17 Range/Units 03:28 03:28 03:28 WBC 8.6 (4.3-11.1) K/mcL RBC 4.10 (3.82-4.97) M/mcL Hgb 11.6 (11.5-15.4) g/dL Hct 36.2 (35.3-44.9) % MCV 88.3 (83.0-100.0) fL MCH 28.3 (28.0-33.3) pg MCHC 32.0 (31.6-35.5) g/dL RDW 14.0 (11.5-14.5) % Plt Count 223 (140-400) K/mcL MPV 9.8 (9.4-12.4) fL Immature Gran % 0.4 (0-4) % Seg Neutrophils % 71.3 % Lymphocytes % 17.2 % Monocytes % 8.9 % Eosinophils % 1.8 % Basophils % 0.4 % Neutrophils # 6.1 (1.6-8.9) K/mcL Lymphocytes # 1.5 (0.6-4.6) K/mcL Monocytes # 0.8 (0.0-1.3) K/mcL Eosinophils # 0.2 (0.0-0.6) K/mcL Basophils # 0.0 (0.0-0.2) K/mcL VBG pH (7.32-7.42) pH Units VBG pCO2 (41-51) mmHg VBG pO2 (25-50) mmHg VBG HCO3 (21-27) mEq/L Sodium 138 (136-145) mEq/L Potassium 4.1 (3.5-5.1) mEq/L Chloride 99 (98-107) mEq/L Carbon Dioxide 31 H (23-29) mEq/L BUN 13 (8-23) mg/dL Creatinine 0.68 (0.60-1.20) mg/dL Est GFR ( Amer) > 60 (> 60) Est GFR (Non-Af Amer) > 60 (> 60) BUN/Creatinine Ratio 19 (6-26) Glucose 409 H (70-105) mg/dL Calculated Osmolality 303 H (280-300) Lactic Acid 2.7 H (0.5-2.2) mmol/L Calcium 8.9 (8.6-10.3) mg/dL Troponin I 0.03 (< 0.04) ng/mL B-Natriuretic Peptide (Less than 100) pg/mL 18 10/02/17 Range/Units 03:28 03:40 WBC (4.3-11.1) K/mcL RBC (3.82-4.97) M/mcL Hgb (11.5-15.4) g/dL Hct (35.3-44.9) % MCV (83.0-100.0) fL MCH (28.0-33.3) pg MCHC (31.6-35.5) g/dL RDW (11.5-14.5) % Plt Count (140-400) K/mcL MPV (9.4-12.4) fL Immature Gran % (0-4) % Seg Neutrophils % % Lymphocytes % % Monocytes % % Eosinophils % % Basophils % % Neutrophils # (1.6-8.9) K/mcL Lymphocytes # (0.6-4.6) K/mcL Monocytes # (0.0-1.3) K/mcL Eosinophils # (0.0-0.6) K/mcL Basophils # (0.0-0.2) K/mcL VBG pH 7.32 (7.32-7.42) pH Units VBG pCO2 64 H (41-51) mmHg VBG pO2 60 H (25-50) mmHg VBG HCO3 33 H (21-27) mEq/L Sodium (136-145) mEq/L Potassium (3.5-5.1) mEq/L Chloride (98-107) mEq/L Carbon Dioxide (23-29) mEq/L BUN (8-23) mg/dL Creatinine (0.60-1.20) mg/dL Est GFR ( Amer) (> 60) Est GFR (Non-Af Amer) (> 60) BUN/Creatinine Ratio (6-26) Glucose (70-105) mg/dL Calculated Osmolality (280-300) Lactic Acid (0.5-2.2) mmol/L Calcium (8.6-10.3) mg/dL Troponin I (< 0.04) ng/mL B-Natriuretic Peptide 57 (Less than 100) pg/mL - Radiology Data Radiology results reviewed: Yes I reviewed the patient's radiology results. Chest X-Ray 10/02/17 03:25 IMPRESSION: Pulmonary vascular congestion, possibly component interstitial edema. D/ / Wilson Saul MD / Wilson Saul MD Interpreting Provider: Wilson Saul MD - EKG Data EKG attestation: Yes I reviewed and interpreted this EKG. Rate: Reports: tachycardia (Sinus tachycardia 1 10 bpm NE 179 QRS 90 QTC 395.) Rhythm: Reports: NSR [place]/QRS: Reports: normal
[2017-10-02 03:42] LABS: Basophils % 0.4 %; Eosinophils # 0.2 K/mcL (0.0-0.6); Eosinophils % 1.8 %; Hematocrit 36.2 % (35.3-44.9); Hemoglobin 11.6 g/dL (11.5-15.4); Immature Granulocytes % 0.4 % (0-4); Lymphocytes # 1.5 K/mcL (0.6-4.6); Lymphocytes % 17.2 %; Mean Corpuscular Hemoglobin 28.3 pg (28.0-33.3); Mean Corpuscular Volume 88.3 fL (83.0-100.0); Mean Platelet Volume 9.8 fL (9.4-12.4); Monocytes # 0.8 K/mcL (0.0-1.3); Monocytes % 8.9 %; Neutrophils # 6.1 K/mcL (1.6-8.9); Platelet Count 223 K/mcL (140-400); Segmented Neutrophils % 71.3 %
[2017-10-02 03:44] LABS: VBG HCO3 33 mEq/L (21-27); VBG PCO2 64 mmHg (41-51); VBG PH 7.32 pH Units (7.32-7.42); VBG PO2 60 mmHg (25-50)
--- NOTE | 2017-10-02 03:45 | Emergency Department Note ---
Disposition Clinical Impression: Acute exacerbation of chronic obstructive airways disease Disposition: Still a Patient Forms: ED Satisfaction Letter General Adult HPI - General Chief complaint: ED Shortness of Breath/Dyspnea Stated complaint: sob Source: EMS Limitations: no limitations - History of Present Illness Pain Scale: 0 - Related Data Home Medications Medication Instructions Recorded Confirmed Albuterol Sulfate [Albuterol 2 puff IH Q4H PRN 06/17/16 08/01/17 Inhaler] Aspirin Enteric Coated [Aspirin EC] 81 mg PO DAILY 06/17/16 08/01/17 Glimepiride [Amaryl] 4 mg PO BID 06/17/16 08/01/17 Lisinopril [Zestril] 20 mg PO DAILY 06/17/16 08/01/17 Metformin HCl 1,000 mg PO DAILY 06/17/16 08/01/17 Pioglitazone [Actos] 15 mg PO DAILY 06/17/16 08/01/17 Simvastatin [Zocor] 20 mg PO HS 06/17/16 08/01/17 Tiotropium [place] [Spiriva] 18 mcg IH DAILY 06/17/16 08/01/17 Bupropion HCl 100 mg PO BID 03/05/17 08/01/17 Detrol LA 4 mg PO DAILY 03/05/17 08/01/17 Diltiazem 180 mg PO DAILY 03/05/17 08/01/17 FA/Mvi Ther-Min/Lycopene/Lut 1 tab PO DAILY 03/05/17 08/01/17 Januvia 100 mg PO DAILY 03/05/17 08/01/17 Nystatin Suspension 2 ml PO QID 03/05/17 08/01/17 Omega3,5,6,7,9 No.1/[place] Oil 1 tab PO DAILY 03/05/17 08/01/17 [Complete [place] Softgel] Oxygen 3 l IH DAILY 03/05/17 08/01/17 Previous Rx's Medication Instructions Recorded Albuterol Neb [Proventil Neb] 2.5 mg IH Q4HR PRN 30 Days 06/23/16 vial.neb Budesonide/Formoterol 160/4.5 2 puff IH BIDR #1 inhaler 07/17/16 [Symbicort 160/4.5] clonazePAM [Klonopin] 0.25 mg PO BID #14 tablet 03/30/17 Furosemide [Lasix] 20 mg PO DAILY #4 tablet 08/01/17 Allergies Allergy/AdvReac Type Severity Reaction Status Date / Time levofloxacin [From Levaquin] Allergy Intermediate See Verified 08/01/17 12:53 Comments Past Medical History - Past Medical History Medical history: Reports: COPD, diabetes Psychiatric history: Reports: anxiety, depression - Social History Smoking Status: Never smoker Smokeless Tobacco Status: No Alcohol use: Reports: none Drug use: Reports: none Physical Exam - General Limitations: no limitations General appearance: alert Course - Reevaluation(s) Reevaluation #1: Attestation note I examined this patient and my medical decision-making was reviewed with the emergency medicine resident. I agree with the documented findings, disposition and treatment plan as described except to the extent set forth below. Patient seen with emergency medicine resident Chris Hyatt, Please see a copy of his note for details of the H&P, ED evaluation, management and disposition. I have independently evaluated the patient and confirmed appropriate portions of the history and physical exam. Briefly: 72-year-old female history of COPD via EMS for shortness of breath and leg swelling. There is no rales my there is bilateral wheezing patient did get DuoNeb treatments prior to arrival by EMS she is 2+ pitting edema to the mid chowdh[place]. EKG shows no acute ischemic changes. Lab work and imaging are pending. Disposition pending Time: 03:44 Vital Signs Temperature 98.1 F 10/02/17 03:20 Pulse Rate 117 10/02/17 03:20 Respiratory Rate 24 10/02/17 03:20 Blood Pressure 149/89 10/02/17 03:20 O2 Sat by Pulse Oximetry 92 10/02/17 03:20 Temperature 98.1 F 10/02/17 03:20 Pulse Rate 117 10/02/17 03:20 Respiratory Rate 24 10/02/17 03:20 Blood Pressure 149/89 10/02/17 03:20 O2 Sat by Pulse Oximetry 92 10/02/17 03:20 Oxygen Delivery Oxygen Delivery Room Air
[2017-10-02 04:12] LABS: BUN/Creatinine Ratio 19 (6-26); Blood Urea Nitrogen 13 mg/dL (8-23); Calcium 8.9 mg/dL (8.6-10.3); Carbon Dioxide 31 mEq/L (23-29); Chloride 99 mEq/L (98-107); Glucose 409 mg/dL (70-105); Osmolality,Calculated 303 (280-300); Potassium 4.1 mEq/L (3.5-5.1); Sodium 138 mEq/L (136-145); Troponin I 0.03 ng/mL (< 0.04); eGFR For African Americans > 60 (> 60); eGFR For Non-African Americans > 60 (> 60)
[2017-10-02] MEDS ORDERED: Furosemide 40 MG/4 ML VIAL IVP ONE (04:59)
[2017-10-02] MEDS ORDERED: D5% in Water 1,000 ML IVC PRN (07:39)
[2017-10-02] MEDS ORDERED: Naloxone 0.4 MG/ML INJ IVP PRN (07:39)
[2017-10-02] MEDS ORDERED: Dextrose Gel 15 GM/37.5 ML TUBE PO PRN ×2 (07:39)
[2017-10-02] MEDS ORDERED: *HR* Dextrose 50 % in Water (Syg) 50 ML SYRINGE IVP PRN (07:39)
[2017-10-02] MEDS ORDERED: Ipratropium/Albuterol Neb 3 ML ONE (07:59)
[2017-10-02] MEDS ORDERED: Ipratropium/Albuterol Neb 3 ML IH SCH (08:00)
[2017-10-02] MEDS ORDERED: Insulin DETEMIR 100 UNIT/ML X5UNITS SQ SCH ×2 (09:00→21:00)
--- NOTE | 2017-10-02 09:50 | Internal Med History&Physical ---
Date of Encounter: 10/02/17 Time of Encounter: 09:46 Internal Medicine - H&P: HPI Chief complaint: Shortness of breath Admitted From: Emergency Dept Plans for Post Hospital Care: Home History of present illness: Ms. Conroy is a 72 year old female patient with a history of diabetes, COPD and chronic respiratory failure on 3 L home oxygen presented to the ER with complaints of shortness of breath. Symptoms began yesterday morning and have been progressing through the night. She woke up last night with significant shortness of breath and decided to come to the ER. She denies any chest pain at this time but does have palpitations. She also has tremors as she just received albuterol nebs. She had previously been hospitalized about 2-3 weeks back at [facility] with an episode of COPD exacerbation. She was recovering from it when her new symptoms began. She denies increasing cough or sputum production. No nausea or vomiting. No hematemesis or hemoptysis. No fever or chills reported. In the ER she received nebulizer treatments with bronchodilators with improvement in her symptoms. Past Med Surg Social Fam HX - Past Medical History Attestation: Yes The following information was validated with the patient. Source: patient, old records reviewed Medical history: COPD, diabetes, hypertension Additional medical history: pneumonia Psychiatric history: anxiety, depression - Past Surgical History Additional surgical history: THROAT SX - Social History Smoking Status: Never smoker Smokeless Tobacco Status: No Alcohol use: none Drug use: none - Family History Mother Hx Family Respiratory Disorders: Yes (copd) Hx Family Cancer: Yes (colon) Daughter Family Member Ethnicity: Non- Living Status: Still Living Hx Family Cardiac Disorders: No Hx Family Respiratory Disorders: No Hx Family Cancer: No Hx Family GI Disorders: No Hx Family Endocrine Disorder: Yes (Diabetes II) Hx Family Neuromuscular Disorders: No Hx Family Neurologic Disorders: No Hx Family HEENT Disorders: No Hx Family Autoimmune Disorders: No Internal Medicine - H&P: Meds Albuterol Sulfate [Albuterol Inhaler] 2 puff IH Q4H PRN 06/17/16 [History] Aspirin Enteric Coated [Aspirin EC] 81 mg PO DAILY 06/17/16 [History] Glimepiride [Amaryl] 4 mg PO BID 06/17/16 [History] Lisinopril [Zestril] 20 mg PO DAILY 06/17/16 [History] Simvastatin [Zocor] 20 mg PO HS 06/17/16 [History] Tiotropium [place] [Spiriva] 18 mcg IH DAILY 06/17/16 [History] Albuterol Neb [Proventil Neb] 2.5 mg IH Q4HR PRN 30 Days vial.neb 06/23/16 [Rx] Budesonide/Formoterol 160/4.5 [Symbicort 160/4.5] 2 puff IH BIDR #1 inhaler [Rx] Oxygen 3 l IH DAILY 03/05/17 [History] Metformin HCl 500 mg PO BID 10/02/17 [History] 3 Allergy/AdvReac Type Severity Reaction Status Date / Time levofloxacin [From Levaquin] Allergy Intermediate See Verified 08/01/17 12:53 Comments All Systems PM: A 10-system review of systems was performed and is negative for pertinent findings except as documented above in the HPI. - Constitutional Constitutional: no chills, no fever(s), no night sweats - EENT Eyes: no change in vision, no discharge, no pain, no photophobia Ears: no ear discharge, no ear pain, no tinnitus Nose, mouth and throat: no dysphagia, no nasal discharge, no neck pain, no sore throat - Cardiovascular Cardiovascular ROS IM: no chest pain, no diaphoresis, no dyspnea, no lightheadedness, no palpitations, no syncope - Respiratory Respiratory: cough, dyspnea, dyspnea on exertion, wheezing - Gastrointestinal Gastrointestinal: no abdominal pain, no diarrhea, no hematemesis, no hematochezia, no melena, no nausea, no vomiting - Neurological Neurological ROS: no confusion, no convulsions, no focal weakness, no numbness, no tingling, no tremor(s) - Hematologic/Lymphatic Hematologic/Lymphatic: no easy bruising - Constitutional Vitals: Temp Pulse Resp BP Pulse Ox 98.0 F 102 18 137/82 92 10/02/17 06:54 10/02/17 06:54 10/02/17 08:01 10/02/17 06:54 10/02/17 08:01 General appearance: Present: cooperative, A&O X 3, answers questions appropriately - Neck Neck exam general surgery: Present: supple, trachea midline. Absent: lymphadenopathy - Respiratory Respiratory exam: Present: decreased breath sounds, prolonged expiratory phase, wheezes. Absent: accessory muscle use, rales, rhonchi - Cardiovascular Cardiovascular exam: Present: RRR, +S1, +S2, tachycardia. Absent: diastolic murmur, gallop, rubs, systolic murmur - GI/Abdominal GI/Abdominal exam: Present: normal bowel sounds, soft, no peritoneal signs. Absent: distended, tenderness - Extremities Exam Extremities exam: Present: warm, radial pulses palpable and symmetrical. Absent : calf tenderness, cyanotic, pedal edema - Neurological Exam Neurological exam: Present: CN II-XII intact, oriented X3, no focal deficits, strengths equal and symetr throughout. Absent: facial droop, speech deficit Internal Med - H&P Results - Labs CBC & Chem 7: 10/02/17 03:28 10/02/17 03:28 - Impressions Impressions Chest X-Ray 10/02/17 03:25 IMPRESSION: Pulmonary vascular congestion, possibly component interstitial edema. D/ / Wilson Saul MD / Wilson Saul MD Interpreting Provider: Wilson Saul MD - Assessment and plan (1) Acute exacerbation of chronic obstructive airways disease Current Visit: Yes Status: Acute Assessment and plan: Will treat with steroids, bronchodilators and O2 supplementation. I will also place her on short course of azithromycin. Monitor vital signs closely. High risk for complications including acute respiratory failure. (2) Acute and chronic respiratory failure Current Visit: Yes Status: Acute Assessment and plan: Patient with chronic respiratory failure presented with dyspnea and shortness of breath. On 3 L O2 supplementation currently.. Which is her baseline. Will treat underlying COPD. Monitor O2 sats. Qualifiers: Respiratory failure complication: hypoxia Qualified Code(s): J96.21 - Acute and chronic respiratory failure with hypoxia (3) Congestive heart failure Current Visit: Yes Status: Chronic Assessment and plan: Chest x-ray shows vascular congestion. Patient not on any diuretics at home. Prior 2-D echocardiogram done last year showed mild left frontal and diastolic dysfunction with EF of 60-65%. We will treat her with IV Lasix. Monitor renal function closely. We will repeat 2-D echocardiogram. Qualifiers: Heart failure type: diastolic Heart failure chronicity: chronic Qualified Code(s): I50.32 - Chronic diastolic (congestive) heart failure (4) Diabetes Current Visit: Yes Status: Chronic Assessment and plan: Uncontrolled. Blood sugars are severely elevated. I expect further evaluation with use of steroids. We will place her on high-dose correctional scale and also long-acting insulin during her stay here. We will adjust insulin regimen according to her blood sugars. Place her on diabetic diet. 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 Resume lisinopril Qualifiers: Hypertension type: essential hypertension Qualified Code(s): I10 - Essential (primary) hypertension - Time Spent With Patient Total time spent is greater than 50% in coordination of care (as documented) at patient's floor/unit and/or counseling patient:
[2017-10-02] MEDS: Tiotropium 18 MCG inhalation IH SCH (10:06)
[2017-10-02] MEDS: Insulin LISPRO 300 UNITS/3 ML VIAL SQ SCH ×4 (10:08→17:10)
[2017-10-02] MEDS: Budesonide/Formoterol 160/4.5 MDI IH SCH ×2 (10:27→22:46)
[2017-10-02] MEDS: predniSONE 20 MG TABLET PO SCH (12:38)
[2017-10-02] MEDS: Azithromycin 250 MG TABLET PO SCH (12:39)
[2017-10-02] MEDS: Levalbuterol Neb 1.25 MG/3 ML IH SCH ×3 (12:44→22:46)
[2017-10-02] MEDS ORDERED: Insulin Human Regular 10 UNIT in 0.9 % Sodium Chloride 10 ML IV ONE (13:42)
[2017-10-02] MEDS ORDERED: Insulin DETEMIR 100 UNIT/ML X5UNITS SQ ONE (13:43)
[2017-10-02] MEDS: ALPRAZolam 0.25 MG TABLET PO PRN (14:04)
[2017-10-02] MEDS: *HR* Heparin 5,000 UNIT/ML VIAL SQ SCH (17:09)
[2017-10-02] MEDS ORDERED: Insulin LISPRO 300 UNITS/3 ML VIAL SQ SCH (21:00)
[2017-10-03] MEDS ORDERED: Insulin DETEMIR 100 UNIT/ML X5UNITS SQ SCH ×2 (00:29→09:00)
[2017-10-03] MEDS ORDERED: Insulin DETEMIR 100 UNIT/ML X5UNITS SQ ONE (00:54)
[2017-10-03] MEDS ORDERED: Melatonin 3 MG TABLET PO PRN (02:33)
[2017-10-03 04:15] LABS: Basophils % 0.1 %; Hematocrit 32.3 % (35.3-44.9); Hemoglobin 10.7 g/dL (11.5-15.4); Immature Granulocytes % 0.5 % (0-4); Lymphocytes % 9.4 %; Mean Corpuscular HGB Conc 33.1 g/dL (31.6-35.5); Mean Corpuscular Hemoglobin 28.8 pg (28.0-33.3); Mean Corpuscular Volume 87.1 fL (83.0-100.0); Mean Platelet Volume 10.1 fL (9.4-12.4); Monocytes # 0.8 K/mcL (0.0-1.3); Monocytes % 7.4 %; Neutrophils # 8.8 K/mcL (1.6-8.9); Platelet Count 214 K/mcL (140-400); Red Blood Count 3.71 M/mcL (3.82-4.97); Red Cell Distribution Width 14.1 % (11.5-14.5); Segmented Neutrophils % 82.6 %
[2017-10-03] MEDS: Levalbuterol Neb 1.25 MG/3 ML IH SCH ×4 (04:23→22:13)
[2017-10-03 04:33] LABS: BUN/Creatinine Ratio 34 (6-26); Blood Urea Nitrogen 25 mg/dL (8-23); Calcium 8.8 mg/dL (8.6-10.3); Carbon Dioxide 29 mEq/L (23-29); Chloride 98 mEq/L (98-107); Glucose 372 mg/dL (70-105); Osmolality,Calculated 304 (280-300); Potassium 4.3 mEq/L (3.5-5.1); Sodium 137 mEq/L (136-145); eGFR For African Americans > 60 (> 60); eGFR For Non-African Americans > 60 (> 60)
[2017-10-03] MEDS: *HR* Heparin 5,000 UNIT/ML VIAL SQ SCH ×2 (05:14→16:28)
[2017-10-03] MEDS ORDERED: Insulin LISPRO 300 UNITS/3 ML VIAL SQ SCH (07:35)
[2017-10-03] MEDS: Furosemide 40 MG/4 ML VIAL IVP SCH (08:08)
[2017-10-03] MEDS: Insulin LISPRO 300 UNITS/3 ML VIAL SQ SCH ×5 (08:08→16:31)
[2017-10-03] MEDS: Aspirin Enteric Coated 81 MG Tablet PO SCH (08:08)
[2017-10-03] MEDS: Azithromycin 250 MG TABLET PO SCH (08:08)
[2017-10-03] MEDS: predniSONE 20 MG TABLET PO SCH (08:08)
[2017-10-03] MEDS: Lisinopril 20 MG TABLET PO SCH (08:09)
[2017-10-03] MEDS ORDERED: NON-FORMULARY MEDICATION 1 EACH EACH (Oxygen 3 L) IH SCH (09:00)
[2017-10-03] MEDS: Tiotropium 18 MCG inhalation IH SCH (10:57)
[2017-10-03] MEDS: Budesonide/Formoterol 160/4.5 MDI IH SCH ×2 (10:57→22:14)
[2017-10-03] MEDS ORDERED: Acetaminophen 325 MG TABLET PO PRN (12:47)
--- NOTE | 2017-10-03 15:05 | Internal Med Progress Note ---
Date of Encounter: 10/03/17 Time of Encounter: 09:50 - Assessment and plan (1) Acute exacerbation of chronic obstructive airways disease Current Visit: Yes Status: Acute Assessment and plan: Improving. Patient feels better. Still wheezing. Complains of pleuritic chest pain. Continue steroids, O2 supplementation and bronchodilators. (2) Acute and chronic respiratory failure Current Visit: Yes Status: Acute Assessment and plan: Continue O2 supplementation. Due to COPD exacerbation Qualifiers: Respiratory failure complication: hypoxia Qualified Code(s): J96.21 - Acute and chronic respiratory failure with hypoxia (3) Congestive heart failure Current Visit: Yes Status: Chronic Assessment and plan: 2-D echocardiogram shows severe mitral stenosis. EF 60-65% with mild left ventricle diastolic dysfunction. Mild pulmonary hypertension present. Patient knows to his diagnosis of mitral stenosis and follows up with cardiology as outpatient. Continue Lasix. Qualifiers: Heart failure type: diastolic Heart failure chronicity: chronic Qualified Code(s): I50.32 - Chronic diastolic (congestive) heart failure (4) Diabetes Current Visit: Yes Status: Chronic Assessment and plan: Blood sugars remain uncontrolled. Insulin regimen has been further increase. Patient currently on Levemir 40 units twice a day in addition to nutritional and sliding scale coverage. Qualifiers: Diabetes mellitus type: type 2 Diabetes mellitus residential insulin use: with residential use Diabetes mellitus complication status: without complication Qualified Code(s): E11.9 - Type 2 diabetes mellitus without complications; Z79.4 - USP (current) use of insulin; Z79.4 - core manager ( current) use of insulin; Z79.4 - core manager (current) use of insulin; Z79.4 - core manager (current) use of insulin (5) Hypertension Current Visit: Yes Status: Chronic Assessment and plan: Blood pressure remains well controlled Qualifiers: Hypertension type: essential hypertension Qualified Code(s): I10 - Essential (primary) hypertension - Time Spent With Patient Total time spent is greater than 50% in coordination of care (as documented) at patient's floor/unit and/or counseling patient: - Subjective Interval history: Patient is awake and alert. Feels better compared to yesterday. Complaints of chest pain especially with cough. Shortness of breath is much better. She wants to go home. No fever or chills reported overnight. - Constitutional Vitals: Temp Pulse Resp BP Pulse Ox 98.2 F 97 18 124/82 97 10/03/17 11:36 10/03/17 13:49 10/03/17 13:49 10/03/17 13:49 10/03/17 13:49 General appearance: Present: cooperative, A&O X 3, answers questions appropriately - Respiratory Respiratory exam: Present: prolonged expiratory phase, wheezes. Absent: accessory muscle use, rales, rhonchi - Cardiovascular Cardiovascular exam: Present: RRR, +S1, +S2. Absent: diastolic murmur, gallop, rubs, systolic murmur - GI/Abdominal GI/Abdominal exam: Present: normal bowel sounds, soft, no peritoneal signs. Absent: distended, tenderness - Extremities Exam Extremities exam: Present: warm, radial pulses palpable and symmetrical. Absent : calf tenderness, cyanotic, pedal edema - Neurological Exam Neurological exam: Present: alert, oriented X3, no focal deficits. Absent: facial droop, speech deficit Internal Medicine: Result - Labs CBC & Chem 7: 10/03/17 03:47 10/03/17 03:47 Labs: Short CBC 10/03/17 Range/Units 03:47 WBC 10.6 (4.3-11.1) K/mcL Hgb 10.7 L (11.5-15.4) g/dL Hct 32.3 L (35.3-44.9) % Plt Count 214 (140-400) K/mcL Neutrophils # 8.8 (1.6-8.9) K/mcL BMP 10/03/17 03:47 Sodium 137 Potassium 4.3 Chloride 98 Carbon Dioxide 29 BUN 25 H Creatinine 0.74 Glucose 372 H Calcium 8.8 - Impressions Impressions Echocardiogram 10/02/17 07:44 Impressions: LVEF 60-65%. Normal LV chamber size and function. Wall thickness was not well visualized. Grossly, there appears to be significant hypertrophy of the basal septum with evidence of a moderate LVOT obstruction. Mild left ventricular diastolic dysfunction. Normal right ventricular structure and function. Severely dilated left atrium. Severe mitral stenosis. Mean gradient 14 mmHg (HR 102 bpm). Borderline mild pulmonary hypertension. Estimated RVSP 35 mmHg. Consider a repeat TTE with evaluation of AV and MV when HR better controlled. Left Ventricular Wall Motion: Rest Echo Findings All wall segments showed normal motion. Findings: Study Quality * Technically sub-optimal due to poor echocardiographic windows. ECG Findings * Sinus tachycardia. Left Ventricle * LVEF 60-65%. * Normal LV chamber size and function. * Wall thickness was not well visualized. Grossly, there appears to be significant hypertrophy of the basal septum with evidence of a moderate LVOT obstruction. * Mild left ventricular diastolic dysfunction. Right Ventricle * Normal right ventricular structure and function. Left Atrium * Severely dilated left atrium. Right Atrium * Mildly dilated right atrium. Aortic Valve * Aortic valve not well visualized. Grossly, no significant calcification or restriction. * No aortic regurgitation. * Moderate obstruction across the LVOT. No obvious significant AV stenosis. Mitral Valve * Moderate mitral annular calcification. * Mildly calcified mitral valve leaflets. * No mitral regurgitation. * Severe mitral stenosis. Mean gradient 14 mmHg (HR 102 bpm). Tricuspid Valve * Normal tricuspid valve structure and function. * Trace tricuspid regurgitation. * No evidence of pulmonary hypertension identified. * Borderline mild pulmonary hypertension. Estimated RVSP 35 mmHg. Pulmonic Valve * Pulmonic valve is not well visualized. Aorta * Normally sized aortic root. Pericardium * The pericardium appears normal. IVC * The IVC is not well evaluated. Pulmonary Artery * Pulmonary artery not well visualized. Consult Discharge Plan - Plan Referrals: Eddie Whitley MD [Primary Care Provider] - 10/13/17 11:00 am
[2017-10-03] MEDS ORDERED: Psyllium 1 PACKET POWD.PACK PO PRN (16:26)
[2017-10-03] MEDS ORDERED: Insulin Human Regular 10 UNIT in 0.9 % Sodium Chloride 10 ML IV STA (16:45)
[2017-10-03] MEDS: ALPRAZolam 0.25 MG TABLET PO PRN (20:39)
[2017-10-03] MEDS: Insulin DETEMIR 100 UNIT/ML X5UNITS SQ SCH (20:45)
[2017-10-04] MEDS: Levalbuterol Neb 1.25 MG/3 ML IH SCH ×2 (03:14→10:16)
[2017-10-04] MEDS: *HR* Heparin 5,000 UNIT/ML VIAL SQ SCH (05:29)
[2017-10-04 07:26] VITALS: BP 139/78
[2017-10-04] MEDS: Insulin LISPRO 300 UNITS/3 ML VIAL SQ SCH ×3 (07:30→12:22)
[2017-10-04] MEDS: Furosemide 40 MG/4 ML VIAL IVP SCH (07:37)
[2017-10-04] MEDS: Aspirin Enteric Coated 81 MG Tablet PO SCH (07:37)
[2017-10-04] MEDS: Insulin DETEMIR 100 UNIT/ML X5UNITS SQ SCH ×2 (07:37→08:27)
[2017-10-04] MEDS: Azithromycin 250 MG TABLET PO SCH (07:37)
[2017-10-04] MEDS: predniSONE 20 MG TABLET PO SCH (07:37)
[2017-10-04] MEDS: Lisinopril 20 MG TABLET PO SCH (07:37)
[2017-10-04] MEDS: Budesonide/Formoterol 160/4.5 MDI IH SCH (10:16)
[2017-10-04] MEDS: Tiotropium 18 MCG inhalation IH SCH (10:16)
--- NOTE | 2017-10-04 11:19 | Discharge Summary ---
- NOTES TO OUTPATIENT PROVIDER Notes to Outpatient Provider: Patient hospitalized here with COPD exacerbation and uncontrolled diabetes. Was treated with bronchodilators, steroids and azithromycin along with O2 supplementation. Symptoms have significantly improved since admission. She also has a component of congestive heart failure which was treated with Lasix. She is now doing better and clinically stable to be discharged home. She will follow up with her primary care provider for further management. She does have poor glycemic control and has trouble managing her diabetic diet. I believe she would benefit from diabetes education and nutrition classes. Orders not resulted at time of discharge: Pending orders 10/03/17 13:57 EKG [ECG 12 lead ECG] [ECG] Routine Date of Encounter: 10/04/17 Time of Encounter: 11:17 - Discharge Diagnosis (1) Acute exacerbation of chronic obstructive airways disease Priority: Primary Status: Acute (2) Acute and chronic respiratory failure Priority: Secondary Status: Acute Qualifiers: Respiratory failure complication: hypoxia Qualified Code(s): J96.21 - Acute and chronic respiratory failure with hypoxia (3) Congestive heart failure Priority: Secondary Status: Chronic Qualifiers: Heart failure type: diastolic Heart failure chronicity: chronic Qualified Code(s): I50.32 - Chronic diastolic (congestive) heart failure (4) Diabetes Priority: Secondary Status: Chronic Qualifiers: Diabetes mellitus type: type 2 Diabetes mellitus chcf insulin use: with chcf use Diabetes mellitus complication status: without complication Qualified Code(s): E11.9 - Type 2 diabetes mellitus without complications; Z79.4 - bed bug exterminator (current) use of insulin (5) Hypertension Priority: Secondary Status: Chronic Qualifiers: Hypertension type: essential hypertension Qualified Code(s): I10 - Essential (primary) hypertension Hospital course: Ms. Conroy is a 72 year old female Patient with history of COPD, diastolic CHF , mitral stenosis, diabetes hospitalized here with COPD exacerbation and uncontrolled diabetes. She Was treated with bronchodilators, steroids and azithromycin along with O2 supplementation. Her symptoms have significantly improved since admission. She also has a component of congestive heart failure which was treated with Lasix. She is now doing better and clinically stable to be discharged home. She will follow up with her primary care provider for further management. She does have poor glycemic control and has trouble managing her diabetic diet. I believe she would benefit from diabetes education and nutrition classes. 2-D echocardiogram showed normal ejection fraction with diastolic dysfunction and severe mitral stenosis. She follows with cardiology for mitral stenosis and will continue to do so. Discharge discussed with: patient, nurse - Time Spent with Patient Total time spent providing and/or coordinating discharge services: Greater than 30 minutes (40 min) - Discharge Medications Prescriptions: Azithromycin [Zithromax] 500 mg PO DAILY #4 tablet Furosemide [Lasix] 40 mg PO DAILY #30 tablet predniSONE [PredniSONE] 10 mg PO DAILY 8 Days tablet Home Medications: Albuterol Sulfate [Albuterol Inhaler] 2 puff IH Q4H PRN 06/17/16 [History] Aspirin Enteric Coated [Aspirin EC] 81 mg PO DAILY 06/17/16 [History] Glimepiride [Amaryl] 4 mg PO BID 06/17/16 [History] Lisinopril [Zestril] 20 mg PO DAILY 06/17/16 [History] Simvastatin [Zocor] 20 mg PO HS 06/17/16 [History] Tiotropium [place] [Spiriva] 18 mcg IH DAILY 06/17/16 [History] Albuterol Neb [Proventil Neb] 2.5 mg IH Q4HR PRN 30 Days vial.neb 06/23/16 [Rx] Budesonide/Formoterol 160/4.5 [Symbicort 160/4.5] 2 puff IH BIDR #1 inhaler [Rx] Oxygen 3 l IH DAILY 03/05/17 [History] ALPRAZolam [Xanax 0.25 MG Tablet] 0.25 mg PO DAILY PRN 10/02/17 [History] Metformin HCl [Metformin HCl ER] 500 mg PO BID 10/02/17 [History] Paroxetine [Paxil] 20 mg PO QPM 10/02/17 [History] Subcutaneous Insulin Pump [T:Slim] 0 units SQ DAILY 10/02/17 [History] Azithromycin [Zithromax] 500 mg PO DAILY #4 tablet 10/04/17 [Rx] Furosemide [Lasix] 40 mg PO DAILY #30 tablet 10/04/17 [Rx] predniSONE [PredniSONE] 10 mg PO DAILY 8 Days tablet 10/04/17 [Rx] Allergies/Adverse Reactions: 3 Allergy/AdvReac Type Severity Reaction Status Date / Time levofloxacin [From Levaquin] Allergy Intermediate See Verified 08/01/17 12:53 Comments Date of admission: 10/02/17 06:07 Primary care physician: Eddie Whitley Consults: 10/02/17 09:07 Consult to Nurse Navigator [CONS] Routine Comment: 10/04/17 11:12 Consult to Diabetes Education [CONS] Routine Comment: Reason for Consult: DM uncontrolled Discharging clinician: Erica Alarcon Anticipated date of discharge: 10/04/17 - Constitutional Vitals: Temp Pulse Resp BP Pulse Ox 97.8 F 83 17 139/78 96 10/04/17 07:11 10/04/17 07:11 10/04/17 10:20 10/04/17 07:11 10/04/17 10:20 General appearance: Present: cooperative, A&O X 3, answers questions appropriately - Respiratory Respiratory exam: Present: prolonged expiratory phase, wheezes. Absent: accessory muscle use, rales, rhonchi - GI/Abdominal GI/Abdominal exam: Present: normal bowel sounds, soft, no peritoneal signs. Absent: distended, tenderness - Extremities Exam Extremities exam: Present: warm, radial pulses palpable and symmetrical. Absent : calf tenderness, cyanotic, pedal edema - Neurological Exam Neurological exam: Present: alert, oriented X3, no focal deficits. Absent: facial droop, speech deficit - Skin Skin exam: Present: dry, intact - Patient Status Disposition: Home, Self-Care Condition: Fair Functional capacity at discharge: uses cane/walker Overall status at discharge: patient is progressing back to baseline - Discharge Instructions Instructions: Heart Failure (DC), Acute Respiratory Distress Syndrome (DC), Diabetes Mellitus Type 2 in Adults (DC), Chronic Obstructive Pulmonary Disease ( DC), Meal Planning with Diabetes Exchanges (DC) Follow Up With: Eddie Whitley MD [Primary Care Provider] - 10/13/17 11:00 am - Diet and Activity Activity: increase activity as tolerated, wear oxygen at all times Diet: diabetic diet, low fat, low cholesterol, low salt diet, other (Fluid restriction to 2 L per day)
--- NOTE | 2017-10-05 06:49 | Electrocardiograph Report ---
[address] [address] Test Date: 2017-10-02 Pat Name: Clary Conroy Department: 103 Room: 05 Gender: F Lumber Marker: CM1 : 1945 Requested By: Chris Hyatt Order Number: [id number] Reading MD: Carlos Lopez Measurements Intervals [place] Rate: 110 P: 50 SC: 179 QRS: 45 QRSD: 90 T: 98 QT: 330 QTc: 395 Interpretive Statements SINUS TACHYCARDIA WITH OCCASIONAL SUPRAVENTRICULAR PREMATURE COMPLEXES BASELINE ARTIFACT Electronically Signed On 10-05-2017 6:47:30 EDT by Carlos Lopez
--- NOTE | 2017-10-05 09:52 | Electrocardiograph Report ---
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
== END 2017-10-04 13:05 | disposition home or self-care (01) ==
LOC: EMEROO 03:18 → 2NNU 03:18
PROVIDERS: ADMIT Internal Medicine; ATTEND Internal Medicine

== ENCOUNTER 2018-04-02 20:27 | Observation (INO) ==
[2018-04-02] MEDS ORDERED: Ipratropium/Albuterol Neb 3 ML IH ONE (20:50)
[2018-04-02] MEDS ORDERED: methylPREDNISolone 125 MG/2 ML VIAL IVP ONE (20:50)
[2018-04-02] MEDS ORDERED: ALPRAZolam 0.5 MG TABLET PO ONE (20:52)
[2018-04-02 21:18] LABS: Basophils % 0.3 %; Eosinophils # 0.1 K/mcL (0.0-0.6); Eosinophils % 1.3 %; Hematocrit 33.9 % (35.3-44.9); Hemoglobin 10.5 g/dL (11.5-15.4); Immature Granulocytes % 0.4 % (0-4); Lymphocytes # 1.7 K/mcL (0.6-4.6); Lymphocytes % 15.7 %; Mean Corpuscular Hemoglobin 25.7 pg (28.0-33.3); Mean Corpuscular Volume 83.1 fL (83.0-100.0); Mean Platelet Volume 9.4 fL (9.4-12.4); Monocytes # 0.7 K/mcL (0.0-1.3); Monocytes % 6.2 %; Neutrophils # 8.3 K/mcL (1.6-8.9); Platelet Count 289 K/mcL (140-400); Red Blood Count 4.08 M/mcL (3.82-4.97); Segmented Neutrophils % 76.1 %
[2018-04-02 21:40] LABS: BUN/Creatinine Ratio 23 (6-26); Blood Urea Nitrogen 19 mg/dL (8-23); Calcium 9.5 mg/dL (8.6-10.3); Carbon Dioxide 33 mEq/L (23-29); Chloride 95 mEq/L (98-107); Glucose 336 mg/dL (70-105); Osmolality,Calculated 299 (280-300); Potassium 4.2 mEq/L (3.5-5.1); Sodium 137 mEq/L (136-145); Troponin I < 0.03 ng/mL (< 0.04); eGFR For Non-African Americans > 60 (> 60)
[2018-04-02] MEDS ORDERED: Furosemide 40 MG/4 ML VIAL IVP ONE (21:46)
--- NOTE | 2018-04-02 21:50 | Emergency Department Note ---
Disposition Clinical Impression: COPD with exacerbation Congestive heart failure Qualifiers: Heart failure type: other Qualified Code(s): I50.9 - Heart failure, unspecified Disposition: Admitted As Inpatient Condition: Fair SOB HPI - General Chief Complaint: ED Shortness of Breath/Dyspnea Stated Complaint: difficulty breathing Time Seen by Provider: 04/02/18 20:42 Source: patient, family Mode of arrival: wheelchair Limitations: no limitations Nursing Notes Reviewed: Yes Vital Signs Reviewed: Yes - History of Present Illness Patient presents to the ED with the chief complaint of shortness of breath. Patient reports she has a history of COPD and CHF. States that she is normally followed at [facility]. States that she has been unable to see her lung doctor because he only goes there twice a month. States that she had bilateral pneumonia a few years ago and is scared. She is getting sick again. She also complains of a lot of anxiety. Her son was recently diagnosed with cancer and she has been having a hard time coping with that. She denies any suicidal ideations. States that she does take Xanax and Abilify, but it does not seem to help. She sits or trouble breathing. Has been gradually getting worse. She took a breathing treatment before she left and feels like it did not really help much. She states she wanted to get checked out and try to get stronger before the so she can spend time with her family. She denies any fever or chills. No chest pain, but does have chest tightness consistent with her COPD in the past. Does have increasing shortness of breath and is on oxygen at home. Denies any abdominal pain, nausea, vomiting or diarrhea. - Related Data Home Medications Medication Instructions Recorded Confirmed Albuterol Sulfate [Albuterol 2 puff IH Q4H PRN 06/17/16 04/02/18 Inhaler] Aspirin Enteric Coated [Aspirin EC] 81 mg PO DAILY 06/17/16 04/02/18 Glimepiride [Amaryl] 4 mg PO BID 06/17/16 04/02/18 Lisinopril [Zestril] 20 mg PO DAILY 06/17/16 04/02/18 Simvastatin [Zocor] 20 mg PO HS 06/17/16 04/02/18 Tiotropium [place] [Spiriva] 18 mcg IH DAILY 06/17/16 04/02/18 Metformin HCl [Metformin HCl ER] 500 mg PO BID 10/02/17 04/02/18 Subcutaneous Insulin Pump [T:Slim] 0 units SQ DAILY 10/02/17 04/02/18 ALPRAZolam [Xanax 0.5 MG Tablet] 0.5 mg PO BID 04/02/18 04/02/18 ARIPiprazole [Abilify] 2 mg PO HS 04/02/18 04/02/18 Metoprolol [Lopressor] 25 mg PO BID 04/02/18 04/02/18 Sertraline [Zoloft] 200 mg PO DAILY 04/02/18 04/02/18 Previous Rx's Medication Instructions Recorded Albuterol Neb [Proventil Neb] 2.5 mg IH Q4HR PRN 30 Days 06/23/16 vial.neb Budesonide/Formoterol 160/4.5 2 puff IH BIDR #1 inhaler 07/17/16 [Symbicort 160/4.5] Furosemide [Lasix] 40 mg PO DAILY #30 tablet 10/04/17 Allergies Allergy/AdvReac Type Severity Reaction Status Date / Time levofloxacin [From Levaquin] Allergy Intermediate See Verified 04/02/18 19:35 Comments Review of Systems: As reviewed in the HPI. All other systems reviewed are negative or normal. Past Medical History - Past Medical History Attestation: Yes The following information was validated with the patient. Source: patient Medical history: Reports: COPD, diabetes, hyperlipidemia, hypertension, other Psychiatric history: Reports: anxiety, depression - Social History Smoking Status: Former smoker Smokeless Tobacco Status: No Alcohol use: Reports: none Drug use: Reports: none Physical Exam CONSTITUTIONAL: [ill appearing, alert and in no acute distress] EYES: [EOMI, clear conjunctiva, PERRLA] HENT: [Normocephalic, atraumatic, moist mucus membranes, normal oropharynx] NECK: [normal inspection, full ROM, trachea midline, no obvious swelling] PULMONARY: [Decreased breath sounds bilateral lungs with expiratory wheezing in the left upper posterior lung field, no rales or rhonchi CARDIOVASCULAR: [tachycardic, regular rhythm, normal heart sounds, no murmurs, distal extremities are warm and well perfused] GASTROINSTESTINAL: [soft, no guarding, no rebound, normal bowel sounds] GENITOURINARY/RECTAL: [deferred] NEUROLOGIC: [Alert, oriented x3, normal speech, moves all extremities] EXTREMITIES: [Normal inspection, full ROM, no tenderness, no pedal edema, normal capillary refill] MUSCULOSKELETAL: [no gross deformities, atraumatic] SKIN: [No cyanosis, no diaphoresis, normal color, warm, no rash] PSYCHIATRIC: [anxious] - General Limitations: no limitations General appearance: alert, in no apparent distress Course - Reevaluation(s) Reevaluation #1: patient to be admitted. seems more CHF than COPD but certainly are confounding. Vital Signs Temperature 98.3 F 04/02/18 20:33 Pulse Rate 116 04/02/18 20:33 Respiratory Rate 20 04/02/18 20:33 Blood Pressure 108/65 04/02/18 20:33 O2 Sat by Pulse Oximetry 92 04/02/18 20:33 Temperature 98.3 F 04/02/18 20:33 Pulse Rate 116 04/02/18 20:33 Respiratory Rate 16 04/02/18 22:00 Blood Pressure 121/63 04/02/18 23:26 O2 Sat by Pulse Oximetry 97 04/02/18 22:00 Oxygen Delivery Oxygen Delivery Nasal Cannula Shortness of Breath/Dyspnea - Medical Records Medical records reviewed: Yes I reviewed the patient's medical records. - Lab Data Lab results reviewed: Yes I reviewed the patient's lab results. Result diagrams: 04/02/18 21:08 04/02/18 21:08 Lab Results 04/02/18 04/02/18 04/02/18 Range/Units 21:08 21:08 21:08 WBC 10.8 (4.3-11.1) K/mcL RBC 4.08 (3.82-4.97) M/mcL Hgb 10.5 L (11.5-15.4) g/dL Hct 33.9 L (35.3-44.9) % MCV 83.1 (83.0-100.0) fL MCH 25.7 L (28.0-33.3) pg MCHC 31.0 L (31.6-35.5) g/dL RDW 15.0 H (11.5-14.5) % Plt Count 289 (140-400) K/mcL MPV 9.4 (9.4-12.4) fL Immature Gran % 0.4 (0-4) % Seg Neutrophils % 76.1 % Lymphocytes % 15.7 % Monocytes % 6.2 % Eosinophils % 1.3 % Basophils % 0.3 % Neutrophils # 8.3 (1.6-8.9) K/mcL Lymphocytes # 1.7 (0.6-4.6) K/mcL Monocytes # 0.7 (0.0-1.3) K/mcL Eosinophils # 0.1 (0.0-0.6) K/mcL Basophils # 0.0 (0.0-0.2) K/mcL Sodium 137 (136-145) mEq/L Potassium 4.2 (3.5-5.1) mEq/L Chloride 95 L (98-107) mEq/L Carbon Dioxide 33 H (23-29) mEq/L BUN 19 (8-23) mg/dL Creatinine 0.82 (0.60-1.20) mg/dL Est GFR ( Amer) > 60 (> 60) Est GFR (Non-Af Amer) > 60 (> 60) BUN/Creatinine Ratio 23 (6-26) Glucose 336 H (70-105) mg/dL Calculated Osmolality 299 (280-300) Lactic Acid 1.9 (0.5-2.2) mmol/L Calcium 9.5 (8.6-10.3) mg/dL Troponin I < 0.03 (< 0.04) ng/mL B-Natriuretic Peptide (Less than 100) pg/mL 04/02/18 Range/Units 21:08 WBC (4.3-11.1) K/mcL RBC (3.82-4.97) M/mcL Hgb (11.5-15.4) g/dL Hct (35.3-44.9) % MCV (83.0-100.0) fL MCH (28.0-33.3) pg MCHC (31.6-35.5) g/dL RDW (11.5-14.5) % Plt Count (140-400) K/mcL MPV (9.4-12.4) fL Immature Gran % (0-4) % Seg Neutrophils % % Lymphocytes % % Monocytes % % Eosinophils % % Basophils % % Neutrophils # (1.6-8.9) K/mcL Lymphocytes # (0.6-4.6) K/mcL Monocytes # (0.0-1.3) K/mcL Eosinophils # (0.0-0.6) K/mcL Basophils # (0.0-0.2) K/mcL Sodium (136-145) mEq/L Potassium (3.5-5.1) mEq/L Chloride (98-107) mEq/L Carbon Dioxide (23-29) mEq/L BUN (8-23) mg/dL Creatinine (0.60-1.20) mg/dL Est GFR ( Amer) (> 60) Est GFR (Non-Af Amer) (> 60) BUN/Creatinine Ratio (6-26) Glucose (70-105) mg/dL Calculated Osmolality (280-300) Lactic Acid (0.5-2.2) mmol/L Calcium (8.6-10.3) mg/dL Troponin I (< 0.04) ng/mL B-Natriuretic Peptide 56 (Less than 100) pg/mL - Radiology Data Radiology results reviewed: Yes I reviewed the patient's radiology results. - EKG Data EKG attestation: Yes I reviewed and interpreted this EKG. EKG results narrative: Sinus tach, rate 108, normal axis, no acute ischemic changes Attestation Statement - Attestation Attestation: I, Hermes Brennan, examined this patient and my medical decision-making was reviewed with the SCULPTURE CONSERVATOR/PA/Advanced Practice Nurse/Resident Physician. I agree with the documented findings, disposition and treatment plan as described except to the extent set forth below. 73-year-old female presents emergency Department with concerns of difficulty in breathing. Patient states she has a history of congestive heart failure and COPD. She states that this feels like her previous COPD. Patient last took a course of steroids 3 weeks ago with improvement of her symptoms however now they have worsened. Patient denies fever, chills, nausea, vomiting. She has obvious work of increased work of breathing during the evaluation. Chest x-ray did not show evidence of acute infiltrate. She does have pulmonary edema. She felt mildly improved with treatment of Solu-Medrol and do in as an emergency department. She feels comfortable with the plan for admission to hospital for further care and evaluation.
--- NOTE | 2018-04-03 04:38 | Internal Med History&Physical ---
Date of Encounter: 04/03/18 Time of Encounter: 04:38 Internal Medicine - H&P: HPI Chief complaint: SOB History of present illness: Ms. Conroy is a 73 year old female with a past medical history of COPD, chronic hypoxic respiratory failure on 3 L oxygen, hypertension, diabetes, hyperlipidemia, heart failure with preserved ejection fraction, who presents with worsening dyspnea for the past several weeks. Patient states that she has been feeling more weaker, anxious and is having more difficulty with her breathing requiring more use of her breathing treatments ever since . She states that her chest has been feeling heavy but was unsure if it was simply anxiety or something else. Patient reports going to urgent care earlier today where she was found to have an O2 saturation of 77% and was subsequently referred to the ED. Patient however denies any worsening cough or increased sputum production. She denies orthopnea or paroxysmal nocturnal dysp kwadwo stating that she currently sleeps on 2 pillows which has been her baseline for some time now. She reports that she just started using CPAP for the first time. She states that she thinks she is compliant with her medications for the most part but feels that she is on numerous medications at this time. Denies any weight gain or worsening lower extremity edema. Reports that she watches her salt intake. Denies any recent sick contacts. Denies any fever, chills, nausea, vomiting, chest pain or diarrhea. Patient also concerned that she may have had a needle break off one of her insulin patches after bumping into an object. Upon initial assessment in the ED patient was afebrile, hemodynamically stable, mildly tachycardic, no significant tachypnea saturating 97% on 3 L nasal cannula. Laboratory findings notable for anemia which appears to be chronic, normal white count and BNP with blood glucose of 336. Chest x-ray showed showed evidence of pulmonary vascular congestion. Patient received Lasix 40 mg IV push, duo nebs and Solu-Medrol in the ED. A KUB was also performed to a local for retainment of insulin needle which was not seen. Past Med Surg Social Fam HX - Past Medical History Medical history: COPD, diabetes, hyperlipidemia, hypertension, other Additional medical history: pneumonia Psychiatric history: anxiety, depression - Past Surgical History Additional surgical history: THROAT SX - Social History Smoking Status: Former smoker Smokeless Tobacco Status: No Alcohol use: none Drug use: none - Family History Mother Hx Family Respiratory Disorders: Yes (copd) Hx Family Cancer: Yes (colon) Daughter Family Member Ethnicity: Non- Living Status: Still Living Hx Family Cardiac Disorders: Yes (father heart atttack) Hx Family Respiratory Disorders: No Hx Family Cancer: Yes (son bone marrow cancer) Hx Family GI Disorders: No Hx Family Genitourinary Disorders: No Hx Family Endocrine Disorder: No Hx Family Musculoskeletal Disorders: No Hx Family Neuromuscular Disorders: No Hx Family Neurologic Disorders: No Hx Family HEENT Disorders: No Hx Family Autoimmune Disorders: No Hx Family Reproductive Disorders: No Hx Family Psychosocial Disorders: No Hx Family Medical Disorders: No Internal Medicine - H&P: Meds Albuterol Sulfate [Albuterol Inhaler] 2 puff IH Q4H PRN 06/17/16 [History] Aspirin Enteric Coated [Aspirin EC] 81 mg PO DAILY 06/17/16 [History] Glimepiride [Amaryl] 4 mg PO BID 06/17/16 [History] Lisinopril [Zestril] 20 mg PO DAILY 06/17/16 [History] Simvastatin [Zocor] 20 mg PO HS 06/17/16 [History] Tiotropium [place] [Spiriva] 18 mcg IH DAILY 06/17/16 [History] Albuterol Neb [Proventil Neb] 2.5 mg IH Q4HR PRN 30 Days vial.neb 06/23/16 [Rx] Budesonide/Formoterol 160/4.5 [Symbicort 160/4.5] 2 puff IH BIDR #1 inhaler 07/17/16 [Rx] Metformin HCl [Metformin HCl ER] 500 mg PO BID 10/02/17 [History] Subcutaneous Insulin Pump [T:Slim] 0 units SQ DAILY 10/02/17 [History] Furosemide [Lasix] 40 mg PO DAILY #30 tablet 10/04/17 [Rx] ALPRAZolam [Xanax 0.5 MG Tablet] 0.5 mg PO BID 04/02/18 [History] ARIPiprazole [Abilify] 2 mg PO HS 04/02/18 [History] Metoprolol [Lopressor] 25 mg PO BID 04/02/18 [History] Sertraline [Zoloft] 200 mg PO DAILY 04/02/18 [History] Allergy/AdvReac Type Severity Reaction Status Date / Time levofloxacin [From Levaquin] Allergy Intermediate See Verified 04/02/18 19:35 Comments All Systems PM: A 10-system review of systems was performed and is negative for pertinent findings except as documented above in the HPI. - Constitutional Constitutional: no chills, no fever(s), no night sweats - EENT Eyes: no change in vision, no discharge, no pain, no photophobia Ears: no ear discharge, no ear pain, no tinnitus Nose, mouth and throat: no dysphagia, no nasal discharge, no neck pain, no sore throat - Cardiovascular Cardiovascular ROS IM: no chest pain, no diaphoresis, no dyspnea, no lightheadedness, no palpitations, no syncope - Respiratory Respiratory: no cough, no dyspnea, no wheezing, no excessive phlegm production - Gastrointestinal Gastrointestinal: no abdominal pain, no diarrhea, no hematemesis, no hematochezia, no melena, no nausea, no vomiting - Genitourinary Genitourinary: no change in urinary stream, no dysuria, no flank pain, no hematuria - Musculoskeletal Musculoskeletal ROS IM: no numbness, no tingling - Integumentary Integumentary IM: no rash, no unusual bruising - Neurological Neurological ROS: no confusion, no convulsions, no focal weakness, no numbness, no tingling, no tremor(s) - Hematologic/Lymphatic Hematologic/Lymphatic: no easy bruising - Constitutional Vitals: Temp Pulse Resp BP Pulse Ox 98.6 F 89 16 132/69 91 04/03/18 01:25 04/03/18 01:25 04/03/18 01:25 04/03/18 01:25 04/03/18 01:25 Exam: General: Alert and oriented 3 lying in bed in no acute distress Skin:Normal color, no rash, no lesions. HEENT:EOM, pupils equal, round and reactive. Cardiovascular:Normal S1 & S2, 2/6 systolic murmur No JVD. Pulse regular. Lungs:Normal breath sounds, no wheezes or crackles. Abdomen:Soft, non-tender, no rigidity. Extremities:No deformity, 1+ pitting edema up to the midshin Neurological:Normal cognition and motor skills. Generalized tremors in the upper extremities Pulses:Carotid and radial pulses normal +2. Rest of the physical exam is non contributory Internal Med - H&P Results - Labs CBC & Chem 7: 04/03/18 06:13 04/02/18 21:08 Labs: Short CBC 04/02/18 Range/Units 21:08 WBC 10.8 (4.3-11.1) K/mcL Hgb 10.5 L (11.5-15.4) g/dL Hct 33.9 L (35.3-44.9) % Plt Count 289 (140-400) K/mcL Neutrophils # 8.3 (1.6-8.9) K/mcL BMP 04/02/18 21:08 Sodium 137 Potassium 4.2 Chloride 95 L Carbon Dioxide 33 H BUN 19 Creatinine 0.82 Glucose 336 H Calcium 9.5 Cardiac Enzymes 04/02/18 Range/Units 21:08 Troponin I < 0.03 (< 0.04) ng/mL - Impressions ITS Impressions Chest X-Ray 04/02/18 20:49 IMPRESSION: Mild cardiomegaly with perihilar pulmonary vascular congestion. D/ / Sd Bran / Sd Bran Interpreting Provider: Sd Bran X-Ray 04/02/18 21:55 IMPRESSION: No definite evidence for retained needle fragment. D/ / Dante Gracia MD / Dante Gracia MD Interpreting Provider: Dante Gracia MD - Assessment and plan (1) Acute exacerbation of chronic obstructive airways disease Current Visit: No Status: Acute Assessment and plan: Mild acute COPD exacerbation with faint expiratory wheezing on lung examination. Patient received DuoNeb treatment in the ED with improvement in symptoms. -Duo nebs -Steroids -Antibiotics (2) Congestive heart failure Current Visit: Yes Status: Chronic Assessment and plan: Patient presents with evidence of mild CHF exacerbation with 1+ lower extremity edema and pulmonary vascular congestion seen on chest x-ray. Suspect possible noncompliance with medications. Patient received 1 dose of Lasix 40 mg IV push in the ED. Echo in September of this year shows an EF of 60-65% with mild left ventricular diastolic dysfunction. Patient has evidence of severe mitral stenosis. -Continue with home dose of Lasix by mouth -Strict I's and O's and daily weights -Consider repeat echocardiogram Qualifiers: Heart failure type: unspecified Heart failure chronicity: unspecified Qualified Code(s): I50.9 - Heart failure, unspecified (3) Anxiety Current Visit: Yes Status: Acute Assessment and plan: Patient has anxiety and depression currently on anxiolytic, atypical antipsychotic and SSRI. Patient is dealing with a son who was recently diagnosed with some form of bone marrow cancer. -Continue home regimen (4) Diabetes Current Visit: No Status: Chronic Assessment and plan: Diabetic diet. Accu-Cheks. Sliding scale insulin. 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 Resume home antihypertensives. Qualifiers: Hypertension type: essential hypertension Qualified Code(s): I10 - Essential (primary) hypertension (6) DVT prophylaxis Current Visit: Yes Status: Acute Assessment and plan: Subcutaneous heparin. - Time Spent With Patient Total time spent is greater than 50% in coordination of care (as documented) at patient's floor/unit and/or counseling patient:
[2018-04-03] MEDS ORDERED: Naloxone 0.4 MG/ML INJ IVP PRN (05:34)
[2018-04-03] MEDS ORDERED: Dextrose Gel 15 GM/37.5 ML TUBE PO PRN ×2 (05:36)
[2018-04-03] MEDS ORDERED: *HR* Dextrose 50 % in Water (Syg) 50 ML SYRINGE IVP PRN (05:36)
[2018-04-03] MEDS ORDERED: D5% in Water 1,000 ML IVC PRN (05:36)
[2018-04-03] MEDS ORDERED: Levofloxacin 750 MG/150 ML 750 MG/150 ML BAG IVPB SCH (06:00)
[2018-04-03] MEDS: MethylPREDNISolone 40 MG/ML VIAL IVP SCH ×3 (06:02→17:05)
[2018-04-03] MEDS: *HR* Heparin 5,000 UNIT/ML VIAL SQ SCH ×3 (06:02→20:41)
[2018-04-03 06:47] LABS: Hemoglobin 9.9 g/dL (11.5-15.4); Mean Corpuscular HGB Conc 30.9 g/dL (31.6-35.5); Mean Corpuscular Hemoglobin 25.7 pg (28.0-33.3); Mean Corpuscular Volume 83.1 fL (83.0-100.0); Mean Platelet Volume 9.8 fL (9.4-12.4); Platelet Count 252 K/mcL (140-400); Red Blood Count 3.85 M/mcL (3.82-4.97)
[2018-04-03] MEDS: Ipratropium/Albuterol Neb 3 ML IH SCH ×5 (07:42→23:41)
[2018-04-03] MEDS: Aspirin Enteric Coated 81 MG Tablet PO SCH (08:41)
[2018-04-03] MEDS: Lisinopril 20 MG TABLET PO SCH (08:41)
[2018-04-03] MEDS: Azithromycin 500 MG in D5% in Water 250 ML IVPB SCH (08:41)
[2018-04-03] MEDS: Furosemide 40 MG TABLET PO SCH (08:41)
[2018-04-03] MEDS: ALPRAZolam 0.5 MG TABLET PO SCH ×2 (08:41→13:22)
[2018-04-03] MEDS: Insulin LISPRO 300 UNITS/3 ML VIAL SQ SCH ×6 (08:44→20:39)
[2018-04-03 11:17] LABS: Albumin 3.5 g/dL (3.5-5.7); Albumin/Globulin Ratio 1.2 (1.1-2.2); Bilirubin,Total 0.4 mg/dL (0.3-1.0); Calcium 8.6 mg/dL (8.6-10.3); Potassium 5.5 mEq/L (3.5-5.1); Total Protein 6.5 g/dL (6.4-8.9)
[2018-04-03] MEDS ORDERED: Insulin LISPRO 300 UNITS/3 ML VIAL SQ ONE ×2 (11:19→14:43)
[2018-04-03] MEDS ORDERED: Acetaminophen 325 MG TABLET PO PRN (13:15)
[2018-04-03] MEDS ORDERED: Insulin LISPRO 300 UNITS/3 ML VIAL SQ SCH (13:15)
[2018-04-03] MEDS: Insulin DETEMIR 100 UNIT/ML X5UNITS SQ SCH ×2 (13:40→20:40)
--- NOTE | 2018-04-03 13:46 | Internal Med Progress Note ---
Hospitalist Progress Note - Encounter Date of Encounter: 04/03/18 Time of Encounter: 13:44 - Subjective Interval History: I have seen and evaluated patient at bedside. Patient reports that she is still feeling short of breath, but improved when compared to when she came in, denies chest pain or abdominal pain but reports that she has been having on and off chronic diarrhea. denies nausea or vomiting. - Exam Vitals: Temp Pulse Resp BP Pulse Ox 97.4 F L 92 18 112/68 94 04/03/18 12:04 04/03/18 12:04 04/03/18 12:04 04/03/18 12:04 04/03/18 12:04 Exam: Vitals: Reviewed General: Patient is alert, oriented x4. In mild distress due to SOB, diarrhea and intention tremors. ENT: mucous membranes moist, normal external ear exam Respiratory: Good respiratory effort. Scatter bilateral expiratory wheezing. No crackles or rales. Cardiovascular: RRR, nomal s1 and s2, No clicks, rubs, gallops, or murmors. Abdomen: Bowel sounds present normoactive x-4 quadrants. Abdomen is soft, nondistended. No guarding or rebound. No organomegaly noted, obese Musculoskeletal: Spontaneously moving all extremities. no edema, no calf tenderness Skin: warm, dry, intact. Neuro: Sensation light touch intact. Cranial nerves 2-12 is intact. Psych: Patient's affect is normal - Assessment and Plan (1) Acute exacerbation of chronic obstructive airways disease Current Visit: No Status: Acute Assessment and Plan: mild scattered wheezing b/l. continue brochodilators scheduled and PRN Decrease methyl-prednisolone to 40mg/IV BID. incentive spirometry if tolerated. On empiric antibiotics with azithromycin 500mg/IV daily. (2) Diabetes Current Visit: No Status: Chronic Assessment and Plan: blood sugar sub-optimally controlled due to patient being on high dose steroids. started on levemir 15 units BID, plus lipro 5 units AC,and Lispro high dose sliding scale ac. carb controlled diet (3) Hypertension Current Visit: No Status: Chronic Assessment and Plan: BP is well controlled. continue metoprolol 25mg/PO BID and lisinopril 20mg/PO daily (4) Congestive heart failure Current Visit: Yes Status: Chronic Assessment and Plan: not on acute exacerbation. continue fluid restrictive strategies to 1.5 litters of fluids a day on a bb continue furosemide 40/po daily and lisinopril 20mg/PO daily daily weight. (5) Anxiety Current Visit: Yes Status: Chronic Assessment and Plan: Continue alprazolam 2 mg by mouth at 0900 and 1500 scheduled. (6) Diarrhea Current Visit: Yes Status: Chronic Assessment and Plan: unclear etiology of chronic diarrhea. c.diff unlikely GI panel ordered. Started on loperamide 2 mg by mouth every 4 hours when necessary (7) Action tremor Current Visit: Yes Status: Chronic Assessment and Plan: chronic intention tremors. patient has been evaluated by neurology in the outpatient setting. (8) Depression Current Visit: Yes Status: Chronic Assessment and Plan: Continue sertraline 200 mg by mouth daily, and aripiprazole 2 mg by mouth at bedtime. DVT Prophylaxis: Patient is on heparin 5000 units subcutaneous every 8 hours - Summary of Assessment and Plan Summary of Assessment and Plan: Patient to remain in the hospital due to COPD exacerbation, on high dose of IV steroids. Potential discharge tomorrow morning. - Time Spent with Patient Total time spent is greater than 50% in coordination of care (as documented) at patient's floor/unit and/or counseling patient: Greater than 35 minutes (45) Plan of Care Discussed with: patient (and the nurse.) Internal Medicine: Result - Labs CBC & Chem 7: 04/03/18 06:13 04/03/18 10:33 Labs: Short CBC 04/02/18 04/03/18 Range/Units 21:08 06:13 WBC 10.8 10.1 (4.3-11.1) K/mcL Hgb 10.5 L 9.9 L (11.5-15.4) g/dL Hct 33.9 L 32.0 L (35.3-44.9) % Plt Count 289 252 (140-400) K/mcL Neutrophils # 8.3 (1.6-8.9) K/mcL BMP 04/02/18 04/03/18 21:08 10:33 Sodium 137 129 L Potassium 4.2 5.5 H D Chloride 95 L 90 L Carbon Dioxide 33 H 30 H BUN 19 35 H Creatinine 0.82 1.14 Glucose 336 H 731 H* Calcium 9.5 8.6 Cardiac Enzymes 04/02/18 Range/Units 21:08 Troponin I < 0.03 (< 0.04) ng/mL Liver Function 04/03/18 Range/Units 10:33 Total Bilirubin 0.4 (0.3-1.0) mg/dL AST 13 (13-39) Units/L ALT 13 (7-52) Units/L Alkaline Phosphatase 72 (34-104) Units/L Albumin 3.5 (3.5-5.7) g/dL - Impressions Impressions Chest X-Ray 04/02/18 20:49 IMPRESSION: Mild cardiomegaly with perihilar pulmonary vascular congestion. D/ / Sd Bran / Sd Bran Interpreting Provider: Sd Bran X-Ray 04/02/18 21:55 IMPRESSION: No definite evidence for retained needle fragment. D/ / Dante Gracia MD / Dante Gracia MD Interpreting Provider: Dante Gracia MD Consult Discharge Plan - Plan Referrals: Eddie Whitley MD [Primary Care Provider] - (2) Diabetes Qualifiers: Diabetes mellitus type: type 2 Diabetes mellitus penitentiary insulin use: with penitentiary use Diabetes mellitus complication status: without complication Qualified Code(s): E11.9 - Type 2 diabetes mellitus without complications; Z79.4 - [facility] (current) use of insulin (3) Hypertension Qualifiers: Hypertension type: essential hypertension Qualified Code(s): I10 - Essential (primary) hypertension (4) Congestive heart failure Qualifiers: Heart failure type: unspecified Heart failure chronicity: unspecified Qualified Code(s): I50.9 - Heart failure, unspecified (6) Diarrhea Qualifiers: Diarrhea type: unspecified type Qualified Code(s): R19.7 - Diarrhea, unspecified (8) Depression Qualifiers: Depression Type: unspecified Qualified Code(s): F32.9 - Major depressive disorder, single episode, unspecified
[2018-04-03 14:39] LABS: Calcium 8.7 mg/dL (8.6-10.3); Potassium 5.1 mEq/L (3.5-5.1)
[2018-04-03] MEDS: ARIPiprazole 2 MG TABLET PO SCH (20:39)
[2018-04-04] MEDS: Ipratropium/Albuterol Neb 3 ML IH SCH ×5 (03:21→19:31)
[2018-04-04 04:37] LABS: Basophils % 0.1 %; Hematocrit 30.4 % (35.3-44.9); Hemoglobin 9.2 g/dL (11.5-15.4); Immature Granulocytes % 0.4 % (0-4); Lymphocytes # 0.9 K/mcL (0.6-4.6); Lymphocytes % 6.5 %; Mean Corpuscular HGB Conc 30.3 g/dL (31.6-35.5); Mean Corpuscular Hemoglobin 25.1 pg (28.0-33.3); Mean Corpuscular Volume 83.1 fL (83.0-100.0); Mean Platelet Volume 9.8 fL (9.4-12.4); Monocytes # 0.8 K/mcL (0.0-1.3); Monocytes % 5.5 %; Neutrophils # 12.2 K/mcL (1.6-8.9); Platelet Count 264 K/mcL (140-400); Red Blood Count 3.66 M/mcL (3.82-4.97); Red Cell Distribution Width 14.9 % (11.5-14.5); Segmented Neutrophils % 87.5 %
[2018-04-04 04:52] LABS: BUN/Creatinine Ratio 47 (6-26); Blood Urea Nitrogen 43 mg/dL (8-23); Calcium 8.9 mg/dL (8.6-10.3); Carbon Dioxide 33 mEq/L (23-29); Chloride 95 mEq/L (98-107); Glucose 431 mg/dL (70-105); Osmolality,Calculated 303 (280-300); Phosphorous 5.9 mg/dL (2.7-4.5); Potassium 4.8 mEq/L (3.5-5.1); Sodium 132 mEq/L (136-145); eGFR For Non-African Americans > 60 (> 60)
[2018-04-04] MEDS: *HR* Heparin 5,000 UNIT/ML VIAL SQ SCH ×3 (06:01→21:13)
[2018-04-04] MEDS: MethylPREDNISolone 40 MG/ML VIAL IVP SCH ×2 (06:01→16:42)
[2018-04-04] MEDS: Aspirin Enteric Coated 81 MG Tablet PO SCH (08:41)
[2018-04-04] MEDS: Insulin LISPRO 300 UNITS/3 ML VIAL SQ SCH ×7 (08:41→21:12)
[2018-04-04] MEDS: Furosemide 40 MG TABLET PO SCH (08:41)
[2018-04-04] MEDS: ALPRAZolam 0.5 MG TABLET PO SCH ×2 (08:41→16:42)
[2018-04-04] MEDS: Azithromycin 500 MG in D5% in Water 250 ML IVPB SCH (08:42)
[2018-04-04] MEDS: Insulin DETEMIR 100 UNIT/ML X5UNITS SQ SCH ×2 (09:02→21:12)
[2018-04-04] MEDS: Lisinopril 20 MG TABLET PO SCH (11:29)
--- NOTE | 2018-04-04 13:33 | Internal Med Progress Note ---
Hospitalist Progress Note - Encounter Date of Encounter: 04/04/18 Time of Encounter: 13:31 - Subjective Interval History: I have seen and evaluated patient at bedside. shortness of breath continues to improve, patient reports discomfort due to chronic tremors. denies chest pain, nausea or vomiting. - Exam Vitals: Temp Pulse Resp BP Pulse Ox 98.1 F 96 20 120/52 98 04/04/18 11:13 04/04/18 11:13 04/04/18 11:23 04/04/18 11:13 04/04/18 11:23 Exam: Vitals: Reviewed General: Patient is alert, oriented x4. In mild distress due to intention tremors. ENT: mucous membranes moist, normal external ear exam Respiratory: Good respiratory effort. mild Scattered bilateral expiratory wheezing. No crackles or rales. Cardiovascular: RRR, nomal s1 and s2, No clicks, rubs, gallops, or murmors. Abdomen: Bowel sounds present normoactive x-4 quadrants. Abdomen is soft, nondistended. No guarding or rebound. Musculoskeletal: No edema, no calf tenderness Skin: warm, dry, intact. Neuro: Sensation light touch intact. Cranial nerves 2-12 is intact. Psych: Patient's affect is normal - Assessment and Plan (1) Acute exacerbation of chronic obstructive airways disease Current Visit: No Status: Acute Assessment and Plan: Clinically improving. But still has to scatter bilateral wheezing. Continue bronchodilators scheduled some when necessary. On methylprednisolone 40 mg IV twice a day. Azithromycin 500 mg IV daily, for empiric antibiotic coverage. Incentive spirometry. (2) Diabetes Current Visit: No Status: Chronic Assessment and Plan: Blood sugar suboptimally controlled. Secondary to high dose of IV steroid. Levemir increased to 30 units twice a day. Lispro increased to 10 units before meals. Continue lispro medium dose sliding scale before meals. Carb controlled diet (3) Hypertension Current Visit: No Status: Chronic Assessment and Plan: Blood pressure has been well controlled. Patient is on furosemide 40 mg by mouth daily, and metoprolol 25 mg by mouth twice a day. (4) Congestive heart failure Current Visit: Yes Status: Chronic Assessment and Plan: Patient is euvolemic. Continue fluid restrictive strategies to 1.5 L a day. Furosemide 40 mg by mouth daily. Plus beta jane Daily weight. On lisinopril 20 mg by mouth daily. (5) Anxiety Current Visit: Yes Status: Chronic Assessment and Plan: Patient is on alprazolam. (6) Diarrhea Current Visit: Yes Status: Chronic Assessment and Plan: ontinue loperamide. (7) Action tremor Current Visit: Yes Status: Chronic (8) Depression Current Visit: Yes Status: Chronic Assessment and Plan: Patient is on sertraline 200 mg by mouth daily. An Aripiprazole 2mg/PO HS. (9) HLD (hyperlipidemia) Current Visit: Yes Status: Chronic Assessment and Plan: Simvastatin 20 mg by mouth at bedtime. DVT Prophylaxis: Patient heparin subcutaneous. - Summary of Assessment and Plan Summary of Assessment and Plan: Patient to remain in the hospital due to improving COPD exacerbation. We will continue IV steroids. And as scheduled bronchodilators. - Time Spent with Patient Total time spent is greater than 50% in coordination of care (as documented) at patient's floor/unit and/or counseling patient: Greater than 35 minutes (45) Plan of Care Discussed with: patient (the nurse and her daughter.) Internal Medicine: Result - Labs CBC & Chem 7: 04/04/18 04:00 04/04/18 04:00 Labs: Short CBC 04/04/18 Range/Units 04:00 WBC 14.0 H (4.3-11.1) K/mcL Hgb 9.2 L (11.5-15.4) g/dL Hct 30.4 L (35.3-44.9) % Plt Count 264 (140-400) K/mcL Neutrophils # 12.2 H (1.6-8.9) K/mcL BMP 04/03/18 04/04/18 13:48 04:00 Sodium 130 L 132 L Potassium 5.1 4.8 Chloride 90 L 95 L Carbon Dioxide 28 33 H BUN 38 H 43 H Creatinine 1.41 H 0.91 Glucose 712 H* 431 H Calcium 8.7 8.9 Consult Discharge Plan - Plan Referrals: Eddie Whitley MD [Primary Care Provider] - (2) Diabetes Qualifiers: Diabetes mellitus type: type 2 Diabetes mellitus k 12 principal insulin use: with usp use Diabetes mellitus complication status: without complication Qualified Code(s): E11.9 - Type 2 diabetes mellitus without complications; 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 (3) Hypertension Qualifiers: Hypertension type: essential hypertension Qualified Code(s): I10 - Essential (primary) hypertension (4) Congestive heart failure Qualifiers: Heart failure type: unspecified Heart failure chronicity: unspecified Qualified Code(s): I50.9 - Heart failure, unspecified (6) Diarrhea Qualifiers: Diarrhea type: unspecified type Qualified Code(s): R19.7 - Diarrhea, unspecified (8) Depression Qualifiers: Depression Type: unspecified Qualified Code(s): F32.9 - Major depressive disorder, single episode, unspecified (9) HLD (hyperlipidemia) Qualifiers: Hyperlipidemia type: unspecified Qualified Code(s): E78.5 - Hyperlipidemia, unspecified
[2018-04-04] MEDS: ARIPiprazole 2 MG TABLET PO SCH (21:12)
[2018-04-05] MEDS: Ipratropium/Albuterol Neb 3 ML IH SCH ×4 (00:02→11:08)
[2018-04-05 03:43] LABS: Basophils % 0.2 %; Eosinophils % 0.1 %; Hematocrit 30.9 % (35.3-44.9); Hemoglobin 9.5 g/dL (11.5-15.4); Immature Granulocytes % 0.5 % (0-4); Lymphocytes % 7.6 %; Mean Corpuscular HGB Conc 30.7 g/dL (31.6-35.5); Mean Corpuscular Hemoglobin 25.9 pg (28.0-33.3); Mean Corpuscular Volume 84.2 fL (83.0-100.0); Mean Platelet Volume 10.5 fL (9.4-12.4); Monocytes # 0.6 K/mcL (0.0-1.3); Monocytes % 4.3 %; Neutrophils # 11.5 K/mcL (1.6-8.9); Platelet Count 246 K/mcL (140-400); Red Blood Count 3.67 M/mcL (3.82-4.97); Red Cell Distribution Width 15.2 % (11.5-14.5); Segmented Neutrophils % 87.3 %
[2018-04-05 03:57] LABS: BUN/Creatinine Ratio 51 (6-26); Blood Urea Nitrogen 52 mg/dL (8-23); Carbon Dioxide 33 mEq/L (23-29); Chloride 96 mEq/L (98-107); Glucose 430 mg/dL (70-105); Magnesium 2.2 mg/dL (1.6-2.6); Osmolality,Calculated 316 (280-300); Phosphorous 4.9 mg/dL (2.7-4.5); Potassium 5.2 mEq/L (3.5-5.1); Sodium 137 mEq/L (136-145); eGFR For Non-African Americans 53 (> 60)
[2018-04-05] MEDS: MethylPREDNISolone 40 MG/ML VIAL IVP SCH (06:23)
[2018-04-05] MEDS: *HR* Heparin 5,000 UNIT/ML VIAL SQ SCH (06:23)
[2018-04-05] MEDS ORDERED: Insulin DETEMIR 100 UNIT/ML X5UNITS SQ SCH (09:00)
--- NOTE | 2018-04-05 09:00 | Discharge Summary ---
- NOTES TO OUTPATIENT PROVIDER Notes to Outpatient Provider: Follow-up with your primary care physician and discussed your about to better control your DM Orders not resulted at time of discharge: Pending orders 04/02/18 20:49 ECG 12 lead ECG [ECG] Stat Date of Encounter: 04/05/18 Time of Encounter: 08:58 - Discharge Diagnosis (1) Acute exacerbation of chronic obstructive airways disease Priority: Primary Status: Resolved (2) Diabetes Priority: Secondary Status: Chronic Qualifiers: Diabetes mellitus type: type 2 Diabetes mellitus rn long term care insulin use: with rn long term care use Diabetes mellitus complication status: without complication Qualified Code(s): E11.9 - Type 2 diabetes mellitus without complications; Z79.4 - MCFP (current) use of insulin (3) Hypertension Priority: Secondary Status: Chronic Qualifiers: Hypertension type: essential hypertension Qualified Code(s): I10 - Essential (primary) hypertension (4) Congestive heart failure Priority: Secondary Status: Chronic Qualifiers: Heart failure type: unspecified Heart failure chronicity: unspecified Qualified Code(s): I50.9 - Heart failure, unspecified (5) Anxiety Priority: Secondary Status: Chronic (6) Diarrhea Priority: Secondary Status: Chronic Qualifiers: Diarrhea type: unspecified type Qualified Code(s): R19.7 - Diarrhea, unspecified (7) Action tremor Priority: Secondary Status: Chronic (8) Depression Priority: Secondary Status: Chronic Qualifiers: Depression Type: unspecified Qualified Code(s): F32.9 - Major depressive disorder, single episode, unspecified (9) HLD (hyperlipidemia) Priority: Secondary Status: Chronic Qualifiers: Hyperlipidemia type: unspecified Qualified Code(s): E78.5 - Hyperlipidemia, unspecified Hospital course: Ms. Conroy is a 73 year old female past medical history of COPD, chronic hypoxic respiratory failure on 3 L oxygen, hypertension, diabetes, hyperlipidemia, heart failure with preserved ejection fraction, who presents with worsening dyspnea for the past several weeks. Patient was admitted to the hospital due to COPD exacerbation, uncontrolled diabetes. Patient treated with bronchodilators and empiric antibiotic coverage. Patient acute symptoms have resolved, patient is hemodynamically stable to be discharged home on oral antibiotic for 5 more days plus a Medrol Dosepak. Patient reported pain around her left scapular area following a fall, but had decreased ROM, patient was managed with Tylenol with complete resolution of the pain. Patient recommended to follow-up with her primary care physician and discuss her diabetes management. - Time Spent with Patient Total time spent providing and/or coordinating discharge services: Greater than 30 minutes (35) - Discharge Medications Prescriptions: Azithromycin [Zithromax] 500 mg PO DAILY 5 Days #5 tablet Home Medications: Albuterol Sulfate [Albuterol Inhaler] 2 puff IH Q4H PRN 06/17/16 [History] Aspirin Enteric Coated [Aspirin EC] 81 mg PO DAILY 06/17/16 [History] Glimepiride [Amaryl] 4 mg PO BID 06/17/16 [History] Lisinopril [Zestril] 20 mg PO DAILY 06/17/16 [History] Simvastatin [Zocor] 20 mg PO HS 06/17/16 [History] Tiotropium [place] [Spiriva] 18 mcg IH DAILY 06/17/16 [History] Albuterol Neb [Proventil Neb] 2.5 mg IH Q4HR PRN 30 Days vial.neb 06/23/16 [Rx] Budesonide/Formoterol 160/4.5 [Symbicort 160/4.5] 2 puff IH BIDR #1 inhaler 07/17/16 [Rx] Metformin HCl [Metformin HCl ER] 500 mg PO BID 10/02/17 [History] Subcutaneous Insulin Pump [T:Slim] 0 units SQ DAILY 10/02/17 [History] Furosemide [Lasix] 40 mg PO DAILY #30 tablet 10/04/17 [Rx] ALPRAZolam [Xanax 0.5 MG Tablet] 0.5 mg PO BID 04/02/18 [History] ARIPiprazole [Abilify] 2 mg PO HS 04/02/18 [History] Metoprolol [Lopressor] 25 mg PO BID 04/02/18 [History] Sertraline [Zoloft] 200 mg PO DAILY 04/02/18 [History] Azithromycin [Zithromax] 500 mg PO DAILY 5 Days #5 tablet 04/05/18 [Rx] Allergies/Adverse Reactions: Allergy/AdvReac Type Severity Reaction Status Date / Time levofloxacin [From Levaquin] Allergy Intermediate See Verified 04/02/18 19:35 Comments Date of admission: 04/03/18 00:06 Primary care physician: Eddie Whitley - Constitutional Vitals: Temp Pulse Resp BP Pulse Ox 98.3 F 88 16 102/56 93 04/05/18 06:50 04/05/18 06:50 04/05/18 07:31 04/05/18 06:50 04/05/18 07:31 Exam: Vitals: Reviewed General: Patient is alert, oriented x4. In mild distress due to intention tremors. ENT: mucous membranes moist, normal external ear exam Respiratory: Good respiratory effort. Clear to auscultation bilaterally. No crackles or rales. Cardiovascular: RRR, nomal s1 and s2, No clicks, rubs, gallops, or murmors. Abdomen: Bowel sounds present normoactive x-4 quadrants. Abdomen is soft, nondistended. No guarding or rebound. Musculoskeletal: No edema, no calf tenderness Neuro: Sensation light touch intact. Cranial nerves 2-12 is intact. Psych: Patient's affect is normal - Patient Status Disposition: Home, Self-Care Condition: Good Functional capacity at discharge: uses cane/walker Overall status at discharge: patient is progressing back to baseline - Discharge Instructions Follow Up With: Eddie Whitley MD [Primary Care Provider] - - Diet and Activity Activity: wear oxygen at all times (3 litters) Diet: diabetic diet, low salt diet
[2018-04-05] MEDS: Aspirin Enteric Coated 81 MG Tablet PO SCH (09:20)
[2018-04-05] MEDS: Furosemide 40 MG TABLET PO SCH (09:21)
[2018-04-05] MEDS: Lisinopril 20 MG TABLET PO SCH (09:21)
[2018-04-05] MEDS: ALPRAZolam 0.5 MG TABLET PO SCH (09:21)
[2018-04-05] MEDS: Azithromycin 500 MG in D5% in Water 250 ML IVPB SCH (09:21)
[2018-04-05] MEDS: Insulin LISPRO 300 UNITS/3 ML VIAL SQ SCH ×4 (09:25→11:32)
[2018-04-05] MEDS ORDERED: Azithromycin 250 MG TABLET PO SCH (09:45)
[2018-04-05 11:04] VITALS: BP 103/58
--- NOTE | 2018-04-05 13:41 | Electrocardiograph Report ---
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
[2018-04-06] MEDS ORDERED: Azithromycin 250 MG TABLET PO SCH (09:00)
== END 2018-04-05 12:57 | disposition home or self-care (01) ==
LOC: EMEROOARM 20:27 → 2ANU 20:27 → SUATTDRO 04-03 00:06 → 2ANU 04-03 00:27
PROVIDERS: ADMIT Family Medicine; ATTEND Internal Medicine

== ENCOUNTER 2018-05-11 15:44 | Inpatient (IN) ==
[2018-05-11] MEDS ORDERED: Ipratropium/Albuterol Neb 3 ML IH ONE (15:54)
[2018-05-11] MEDS ORDERED: methylPREDNISolone 125 MG/2 ML VIAL IVP ONE (15:54)
[2018-05-11 16:17] LABS: Basophils % 0.2 %; Eosinophils # 0.1 K/mcL (0.0-0.6); Eosinophils % 0.7 %; Hematocrit 32.8 % (35.3-44.9); Hemoglobin 9.6 g/dL (11.5-15.4); Immature Granulocytes % 0.6 % (0-4); Lymphocytes # 0.9 K/mcL (0.6-4.6); Lymphocytes % 8.6 %; Mean Corpuscular HGB Conc 29.3 g/dL (31.6-35.5); Mean Corpuscular Hemoglobin 25.4 pg (28.0-33.3); Mean Corpuscular Volume 86.8 fL (83.0-100.0); Mean Platelet Volume 9.6 fL (9.4-12.4); Monocytes # 0.6 K/mcL (0.0-1.3); Monocytes % 6.1 %; Neutrophils # 8.8 K/mcL (1.6-8.9); Platelet Count 271 K/mcL (140-400); Red Blood Count 3.78 M/mcL (3.82-4.97); Red Cell Distribution Width 14.6 % (11.5-14.5); Segmented Neutrophils % 83.8 %
--- NOTE | 2018-05-11 16:27 | Emergency Department Note ---
Disposition Clinical Impression: CHF (congestive heart failure), COPD (chronic obstructive pulmonary disease), Elevated troponin, Chronic anemia Disposition: Admitted As Inpatient Condition: Fair Referrals: Eddie Whitley MD [Primary Care Provider] - Forms: ED Satisfaction Letter General Adult HPI - General Chief complaint: ED Shortness of Breath/Dyspnea Stated complaint: LUKAS Time Seen by Provider: 05/11/18 15:54 Source: patient, EMS Limitations: no limitations - History of Present Illness Pain Scale: 4 - Related Data Home Medications Medication Instructions Recorded Confirmed Albuterol Sulfate [Albuterol 2 puff IH Q4H PRN 06/17/16 04/02/18 Inhaler] Aspirin Enteric Coated [Aspirin EC] 81 mg PO DAILY 06/17/16 04/02/18 Glimepiride [Amaryl] 4 mg PO BID 06/17/16 04/02/18 Lisinopril [Zestril] 20 mg PO DAILY 06/17/16 04/02/18 Simvastatin [Zocor] 20 mg PO HS 06/17/16 04/02/18 Tiotropium [place] [Spiriva] 18 mcg IH DAILY 06/17/16 04/02/18 Metformin HCl [Metformin ER 500 mg PO BID 10/02/17 04/02/18 Gastric] Subcutaneous Insulin Pump [T:Slim] 0 units SQ DAILY 10/02/17 04/02/18 ALPRAZolam [Xanax 0.5 MG Tablet] 0.5 mg PO BID 04/02/18 04/02/18 ARIPiprazole [Abilify] 2 mg PO HS 04/02/18 04/02/18 Metoprolol [Lopressor] 25 mg PO BID 04/02/18 04/02/18 Sertraline [Zoloft] 200 mg PO DAILY 04/02/18 04/02/18 Previous Rx's Medication Instructions Recorded Albuterol Neb [Proventil Neb] 2.5 mg IH Q4HR PRN 30 Days 06/23/16 vial.neb Budesonide/Formoterol 160/4.5 2 puff IH BIDR #1 inhaler 07/17/16 [Symbicort 160/4.5] Furosemide [Lasix] 40 mg PO DAILY #30 tablet 10/04/17 Allergies Allergy/AdvReac Type Severity Reaction Status Date / Time levofloxacin [From Levaquin] Allergy Intermediate See Verified 04/02/18 19:35 Comments Past Medical History - Past Medical History Medical history: Reports: COPD, diabetes, hyperlipidemia, hypertension, other Psychiatric history: Reports: anxiety, depression - Social History Smoking Status: Former smoker Smokeless Tobacco Status: No Alcohol use: Reports: none Drug use: Reports: none Physical Exam - General Limitations: no limitations General appearance: alert, in no apparent distress Course Vital Signs Temperature 97.9 F 05/11/18 15:52 Pulse Rate 92 05/11/18 15:52 Respiratory Rate 20 05/11/18 15:52 Blood Pressure 118/68 05/11/18 15:52 O2 Sat by Pulse Oximetry 100 05/11/18 15:52 Temperature 97.9 F 05/11/18 15:52 Pulse Rate 92 05/11/18 15:52 Respiratory Rate 20 05/11/18 16:14 Blood Pressure 118/68 05/11/18 15:52 O2 Sat by Pulse Oximetry 100 05/11/18 16:14 Oxygen Delivery Oxygen Delivery Nasal Cannula Medical Decision Making - Lab Data Result diagrams: 05/11/18 16:03 05/11/18 16:03 Lab Results 05/11/18 05/11/18 05/11/18 Range/Units 16:03 16:03 16:03 WBC 10.5 (4.3-11.1) K/mcL RBC 3.78 L (3.82-4.97) M/mcL Hgb 9.6 L (11.5-15.4) g/dL Hct 32.8 L (35.3-44.9) % MCV 86.8 (83.0-100.0) fL MCH 25.4 L (28.0-33.3) pg MCHC 29.3 L (31.6-35.5) g/dL RDW 14.6 H (11.5-14.5) % Plt Count 271 (140-400) K/mcL MPV 9.6 (9.4-12.4) fL Immature Gran % 0.6 (0-4) % Seg Neutrophils % 83.8 % Lymphocytes % 8.6 % Monocytes % 6.1 % Eosinophils % 0.7 % Basophils % 0.2 % Neutrophils # 8.8 (1.6-8.9) K/mcL Lymphocytes # 0.9 (0.6-4.6) K/mcL Monocytes # 0.6 (0.0-1.3) K/mcL Eosinophils # 0.1 (0.0-0.6) K/mcL Basophils # 0.0 (0.0-0.2) K/mcL D-Dimer (0-500) ng/mLFEU Sodium 137 (136-145) mEq/L Potassium 5.2 H (3.5-5.1) mEq/L Chloride 95 L (98-107) mEq/L Carbon Dioxide 36 H (23-29) mEq/L BUN 20 (8-23) mg/dL Creatinine 0.61 (0.60-1.20) mg/dL Est GFR ( Amer) > 60 (> 60) Est GFR (Non-Af Amer) > 60 (> 60) BUN/Creatinine Ratio 33 H (6-26) Glucose 374 H (70-105) mg/dL Calculated Osmolality 302 H (280-300) Lactic Acid 1.7 (0.5-2.2) mmol/L Calcium 9.3 (8.6-10.3) mg/dL Troponin I 0.04 H* (< 0.04) ng/mL B-Natriuretic Peptide (Less than 100) pg/mL 05/11/18 05/11/18 Range/Units 16:03 16:03 WBC (4.3-11.1) K/mcL RBC (3.82-4.97) M/mcL Hgb (11.5-15.4) g/dL Hct (35.3-44.9) % MCV (83.0-100.0) fL MCH (28.0-33.3) pg MCHC (31.6-35.5) g/dL RDW (11.5-14.5) % Plt Count (140-400) K/mcL MPV (9.4-12.4) fL Immature Gran % (0-4) % Seg Neutrophils % % Lymphocytes % % Monocytes % % Eosinophils % % Basophils % % Neutrophils # (1.6-8.9) K/mcL Lymphocytes # (0.6-4.6) K/mcL Monocytes # (0.0-1.3) K/mcL Eosinophils # (0.0-0.6) K/mcL Basophils # (0.0-0.2) K/mcL D-Dimer 1014 H (0-500) ng/mLFEU Sodium (136-145) mEq/L Potassium (3.5-5.1) mEq/L Chloride (98-107) mEq/L Carbon Dioxide (23-29) mEq/L BUN (8-23) mg/dL Creatinine (0.60-1.20) mg/dL Est GFR ( Amer) (> 60) Est GFR (Non-Af Amer) (> 60) BUN/Creatinine Ratio (6-26) Glucose (70-105) mg/dL Calculated Osmolality (280-300) Lactic Acid (0.5-2.2) mmol/L Calcium (8.6-10.3) mg/dL Troponin I (< 0.04) ng/mL B-Natriuretic Peptide 111 H (Less than 100) pg/mL Attestation Statement - Attestation Attestation: I examined this patient and my medical decision-making was reviewed with the Resident Physician. I agree with the documented findings, disposition and treatment plan as described except to the extent set forth below. Patient to the ED with shortness of breath. Dry cough. Pain in the right lower chest. History of COPD and CHF. Last admission 3 weeks ago. EMS states they found her with an O2 sat in the 70s. On exam she is tachypneic with accessory muscle use. Lung sounds diminished. One to 2+ pedal edema bilaterally. Plan. Nebs and steroids. Cardiac workup. D-dimer. Troponin 0.04. Likely secondary to her decompensated heart failure. She is given an aspirin. Her aeration is improved. She is admitted to medicine. Chest X-Ray 05/11/18 15:54 IMPRESSION: Cardiomegaly with pulmonary vascular congestion. Suspect small bilateral pleural effusions. Atelectasis noted in the retrocardiac left lower lobe D/ / Saeid Mclean MD / Saeid Mclean MD Interpreting Provider: Saeid Mclean MD Chest CTA 05/11/18 17:02 IMPRESSION: 1. No pulmonary embolism. 2. Stable spiculated nodule in the right upper lobe with no uptake on a prior PET-CT. Lack of change since June 2016 and lack of uptake may favor a benign process such as fibrotic change. Continued follow-up is advised. 3. Decreased pleural effusions. Decreased mediastinal and right hilar lymphadenopathy as well. D/ / Oral Paiz MD / Oral Paiz MD Interpreting Provider: Oral Paiz MD
[2018-05-11 16:38] LABS: BUN/Creatinine Ratio 33 (6-26); Blood Urea Nitrogen 20 mg/dL (8-23); Calcium 9.3 mg/dL (8.6-10.3); Carbon Dioxide 36 mEq/L (23-29); Chloride 95 mEq/L (98-107); Glucose 374 mg/dL (70-105); Osmolality,Calculated 302 (280-300); Potassium 5.2 mEq/L (3.5-5.1); Sodium 137 mEq/L (136-145); eGFR For Non-African Americans > 60 (> 60)
[2018-05-11 16:44] LABS: Troponin I 0.04 ng/mL (< 0.04)
[2018-05-11] MEDS ORDERED: Aspirin 81 MG TAB.CHEW PO ONE (17:00)
[2018-05-11] MEDS ORDERED: Isovue-370 500 ML BOTTLE IVP ONE (17:02)
--- NOTE | 2018-05-11 17:29 | Emergency Department Note ---
Disposition Clinical Impression: Elevated troponin, Chronic anemia CHF (congestive heart failure) Qualifiers: Heart failure type: other Qualified Code(s): I50.9 - Heart failure, unspecified COPD (chronic obstructive pulmonary disease) Qualifiers: COPD type: unspecified COPD Qualified Code(s): J44.9 - Chronic obstructive pulmonary disease, unspecified Disposition: Admitted As Inpatient Condition: Fair Referrals: Eddie Whitley MD [Primary Care Provider] - Forms: ED Satisfaction Letter Time of Disposition: 18:27 General Adult HPI - General Chief complaint: ED Shortness of Breath/Dyspnea Stated complaint: LUKAS Time Seen by Provider: 05/11/18 15:54 Source: patient, EMS Mode of arrival: EMS Limitations: no limitations Nursing Notes Reviewed: Yes Vital Signs Reviewed: Yes - History of Present Illness HPI Narrative: Patient is a 73-year-old female past medical history of CHF, COPD on 3 L nasal cannula chronically presents to the emergency department for evaluation of dyspn ea. Patient states over the past 2 days she is having difficulty ambulating from room to room in her house. She states today she went to the restroom and she is unable to get back from the restroom to her bedroom because her shortness of breath. She even took a breathing treatment in the bathroom still was not able to ambulate due to her dyspnea. Upon squad's arrival the patient was with an oxygen saturation in the 70s on her 3 L nasal cannula. She is immediately placed on 5 L nasal cannula with improvement to the 90s. States she is also been having intermittent chest pain over the past 2 days and attributes it to recent cough and states that the pain is only when she coughs in the right lower chest. She states that she is also had difficulty sleeping in her bed which she is usually able to do and recently has been sitting on the couch propped up on more pillows than usual. States that her care is performed between here and [facility]. She was recently here in March 2018 for similar symptoms which she was treated for CHF and COPD. Lower extremities are both swollen however states this is not this early in new finding. Pain Scale: 4 - Related Data Home Medications Medication Instructions Recorded Confirmed Albuterol Sulfate [Albuterol 2 puff IH Q4H PRN 06/17/16 04/02/18 Inhaler] Aspirin Enteric Coated [Aspirin EC] 81 mg PO DAILY 06/17/16 04/02/18 Glimepiride [Amaryl] 4 mg PO BID 06/17/16 04/02/18 Lisinopril [Zestril] 20 mg PO DAILY 06/17/16 04/02/18 Simvastatin [Zocor] 20 mg PO HS 06/17/16 04/02/18 Tiotropium [place] [Spiriva] 18 mcg IH DAILY 06/17/16 04/02/18 Metformin HCl [Metformin ER 500 mg PO BID 10/02/17 04/02/18 Gastric] Subcutaneous Insulin Pump [T:Slim] 0 units SQ DAILY 10/02/17 04/02/18 ALPRAZolam [Xanax 0.5 MG Tablet] 0.5 mg PO BID 04/02/18 04/02/18 ARIPiprazole [Abilify] 2 mg PO HS 04/02/18 04/02/18 Metoprolol [Lopressor] 25 mg PO BID 04/02/18 04/02/18 Sertraline [Zoloft] 200 mg PO DAILY 04/02/18 04/02/18 Previous Rx's Medication Instructions Recorded Albuterol Neb [Proventil Neb] 2.5 mg IH Q4HR PRN 30 Days 06/23/16 vial.neb Budesonide/Formoterol 160/4.5 2 puff IH BIDR #1 inhaler 07/17/16 [Symbicort 160/4.5] Furosemide [Lasix] 40 mg PO DAILY #30 tablet 10/04/17 Allergies Allergy/AdvReac Type Severity Reaction Status Date / Time levofloxacin [From Levaquin] Allergy Intermediate See Verified 04/02/18 19:35 Comments All systems ED: reviewed and negative except as stated. Review of Systems: As Per HPI Constitutional: Denies: fever, chills Cardiovascular: Reports: chest pain, dyspnea on exertion, orthopnea, edema. Denies: palpitations, syncope, paroxysmal nocturnal dyspnea Respiratory: Reports: cough, dyspnea. Denies: wheezes, hemoptysis, sputum production Gastrointestinal: Denies: abdominal pain, nausea, vomiting Genitourinary: Denies: urgency, dysuria Musculoskeletal: Denies: back pain, neck pain Integumentary: Denies: rash Past Medical History - Past Medical History Attestation: Yes The following information was validated with the patient. Medical history: Reports: COPD, diabetes, hyperlipidemia, hypertension, other Psychiatric history: Reports: anxiety, depression - Social History Smoking Status: Former smoker Smokeless Tobacco Status: No Alcohol use: Reports: none Drug use: Reports: none Physical Exam - General Limitations: no limitations General appearance: alert, in distress (with hypoxia and tachypnea) - Head Head exam: atraumatic, normocephalic, normal inspection - Eye Eye exam: Present: normal appearance, PERRL, EOMI - ENT ENT exam: normal exam, normal oropharynx, mucous membranes moist - Neck Neck exam: Present: normal inspection, full ROM, trachea midline - Chest Chest inspection: Present: normal inspection, symmetric chest wall rise. Absent: tenderness, rash - Respiratory Respiratory exam: Present: other (diminished in all lung rome. ). Absent: respiratory distress, wheezes - Cardiovascular Cardiovascular exam: Present: regular rate, normal rhythm, normal heart sounds, +S1, +S2 - Abdominal Exam Abdominal exam: Present: soft, Non-Tender, normal bowel sounds. Absent: tenderness - Extremities Exam Extremities exam: Present: full ROM, normal capillary refill, pedal edema. Absent: tenderness - Back Exam Back exam: Present: normal inspection. Absent: tenderness, CVA tenderness (R), CVA tenderness (L) - Neurological Exam Neurological exam: Present: alert, oriented X3 - Psychiatric Psychiatric exam: Present: normal affect, normal mood - Skin Skin exam: Present: warm, dry, intact, normal color Course Course Narrative: Patient was recently admitted in the hospital back in March 2018 which she was treated for acute exacerbation of COPD. She had an echo performed in March 2018 which showed an EF of 60-65% with mild diastolic dysfunction. Patient's physical exam reveals patient is hypoxic, tachypnea it, diminished lung sounds throughout all rome as well as bilateral lower extremity pitting edema. She was worked up for COPD versus CHF versus PE. She will undergo basic labs, cardiac labs, EKG, chest x-ray as well as a d-dimer. While waiting she will receive a dose of IV steroids as well as dual nebs. - Reevaluation(s) Reevaluation #1: Patient's d-dimer was elevated in the thousands. CTA of the chest was ordered. The patient's labwork is remarkable for a slight elevation of her troponin of 0.04. She also has a chronic anemia. Patient is given a full dose of aspirin. She denies chest pain at this time but appears to have been primarily when she is coughing so sounds pleuritic in nature. Pending results of CTA of the chest patient will be admitted. Her breathing has improved after the breathing treatments. Time: 17:39 Reevaluation #2: Patient given a dose of IV lasix. Discussed plan to admit the patient the hospital for CHF/COPD. Discussed with patient and hospitalist, Dr. Reid and he agrees. Vital Signs Temperature 97.9 F 05/11/18 15:52 Pulse Rate 92 05/11/18 15:52 Respiratory Rate 20 05/11/18 15:52 Blood Pressure 118/68 05/11/18 15:52 O2 Sat by Pulse Oximetry 100 05/11/18 15:52 Temperature 97.9 F 05/11/18 15:52 Pulse Rate 92 05/11/18 15:52 Respiratory Rate 20 05/11/18 16:14 Blood Pressure 118/68 05/11/18 15:52 O2 Sat by Pulse Oximetry 100 05/11/18 16:14 Oxygen Delivery Oxygen Delivery Nasal Cannula Medical Decision Making - Medical Records Medical records reviewed: Yes I reviewed the patient's medical records. - Lab Data Lab results reviewed: Yes I reviewed the patient's lab results. Result diagrams: 05/11/18 16:03 05/11/18 16:03 Lab Results 05/11/18 05/11/18 05/11/18 Range/Units 16:03 16:03 16:03 WBC 10.5 (4.3-11.1) K/mcL RBC 3.78 L (3.82-4.97) M/mcL Hgb 9.6 L (11.5-15.4) g/dL Hct 32.8 L (35.3-44.9) % MCV 86.8 (83.0-100.0) fL MCH 25.4 L (28.0-33.3) pg MCHC 29.3 L (31.6-35.5) g/dL RDW 14.6 H (11.5-14.5) % Plt Count 271 (140-400) K/mcL MPV 9.6 (9.4-12.4) fL Immature Gran % 0.6 (0-4) % Seg Neutrophils % 83.8 % Lymphocytes % 8.6 % Monocytes % 6.1 % Eosinophils % 0.7 % Basophils % 0.2 % Neutrophils # 8.8 (1.6-8.9) K/mcL Lymphocytes # 0.9 (0.6-4.6) K/mcL Monocytes # 0.6 (0.0-1.3) K/mcL Eosinophils # 0.1 (0.0-0.6) K/mcL Basophils # 0.0 (0.0-0.2) K/mcL D-Dimer (0-500) ng/mLFEU Sodium 137 (136-145) mEq/L Potassium 5.2 H (3.5-5.1) mEq/L Chloride 95 L (98-107) mEq/L Carbon Dioxide 36 H (23-29) mEq/L BUN 20 (8-23) mg/dL Creatinine 0.61 (0.60-1.20) mg/dL Est GFR ( Amer) > 60 (> 60) Est GFR (Non-Af Amer) > 60 (> 60) BUN/Creatinine Ratio 33 H (6-26) Glucose 374 H (70-105) mg/dL Calculated Osmolality 302 H (280-300) Lactic Acid 1.7 (0.5-2.2) mmol/L Calcium 9.3 (8.6-10.3) mg/dL Troponin I 0.04 H* (< 0.04) ng/mL B-Natriuretic Peptide (Less than 100) pg/mL 05/11/18 05/11/18 Range/Units 16:03 16:03 WBC (4.3-11.1) K/mcL RBC (3.82-4.97) M/mcL Hgb (11.5-15.4) g/dL Hct (35.3-44.9) % MCV (83.0-100.0) fL MCH (28.0-33.3) pg MCHC (31.6-35.5) g/dL RDW (11.5-14.5) % Plt Count (140-400) K/mcL MPV (9.4-12.4) fL Immature Gran % (0-4) % Seg Neutrophils % % Lymphocytes % % Monocytes % % Eosinophils % % Basophils % % Neutrophils # (1.6-8.9) K/mcL Lymphocytes # (0.6-4.6) K/mcL Monocytes # (0.0-1.3) K/mcL Eosinophils # (0.0-0.6) K/mcL Basophils # (0.0-0.2) K/mcL D-Dimer 1014 H (0-500) ng/mLFEU Sodium (136-145) mEq/L Potassium (3.5-5.1) mEq/L Chloride (98-107) mEq/L Carbon Dioxide (23-29) mEq/L BUN (8-23) mg/dL Creatinine (0.60-1.20) mg/dL Est GFR ( Amer) (> 60) Est GFR (Non-Af Amer) (> 60) BUN/Creatinine Ratio (6-26) Glucose (70-105) mg/dL Calculated Osmolality (280-300) Lactic Acid (0.5-2.2) mmol/L Calcium (8.6-10.3) mg/dL Troponin I (< 0.04) ng/mL B-Natriuretic Peptide 111 H (Less than 100) pg/mL - Radiology Data Radiology results reviewed: Yes I reviewed the patient's radiology results. Chest X-Ray 05/11/18 15:54 IMPRESSION: Cardiomegaly with pulmonary vascular congestion. Suspect small bilateral pleural effusions. Atelectasis noted in the retrocardiac left lower lobe D/ / Saeid Mclean MD / Saeid Mclean MD Interpreting Provider: Saeid Mclean MD - EKG Data EKG #1 EKG attestation: Yes I reviewed and interpreted this EKG. EKG results narrative: EKG done at 15:59 shows sinus rhythm at a rate of 93 bpm. Normal axis. Intervals within normal limits. No signs of ST elevation, ST depression or Q waves present. No significant changes from EKG done on April 022017.
[2018-05-11] MEDS ORDERED: Furosemide 40 MG/4 ML VIAL IVP ONE (18:14)
--- NOTE | 2018-05-11 20:45 | Internal Med History&Physical ---
<Gonsalo Gilbert - Last Filed: 05/11/18 23:41> Date of Encounter: 05/11/18 Time of Encounter: 21:00 Internal Medicine - H&P: HPI Chief complaint: Dyspnea Admitted From: Home Plans for Post Hospital Care: Home History of present illness: Ms. Conroy is a 73 year old female with pmh significant for COPD on 3L home O2, HFpEF, HTN, HLD, YANNICK, and anxiety. She has had yellow productive cough, progressively worsening exertional dyspnea, and chest pain described as tightness in the R lower thorax and wrapping around to R lateral back exacerbated with coughing or ambulation. Today, symptoms worsened and was unable to walk from her bedroom to bathroom without dyspnea. EMS arrived and found her on 3L O2 with sats in 70's that improved to 90's with 5L O2. She additionally has been having increased anxiety due to sons recent cancer dx, intermittent nausea and orthopnea. She had no symptoms last week. She denies subjective fever/chills, diplopia, blurry vision, dizziness/lightheadedness, palpitations, hemoptysis, diaphoresis, abdominal pain, vomiting, increased edema from baseline, PND, LE swelling/tenderness/pain/erythema, recent URI or sick contacts. She has YANNICK and has had CPAP but not using it due to feeling of claustrophobia with full face mask. She has had many recent admissions for similar symptoms over last few months both here and at [place] and treated for COPD exacerbations. Upon arrival to the ED her vitals were stable, troponin 0.04, and d dimer 1014. CTA chest without PE, small bilateral pleural effusions, and stable spiculated RUL nodule. When transferring to the floor she was tach ycardic, tachypneic, with O2 sats of 84% on 4L O2 which improved to 90's at 5L O2. She has had improved breathing and chest pain since receiving nebs, steroids, and furosemide in ED. Past Med Surg Social Fam HX - Past Medical History Medical history: COPD, diabetes, hyperlipidemia, hypertension, other Additional medical history: pneumonia Psychiatric history: anxiety, depression - Past Surgical History Additional surgical history: THROAT SX - Social History Smoking Status: Former smoker Smokeless Tobacco Status: No Alcohol use: none Drug use: none - Family History Mother Hx Family Respiratory Disorders: Yes (copd) Hx Family Cancer: Yes (colon) Daughter Family Member Ethnicity: Non- Living Status: Still Living Hx Family Cardiac Disorders: Yes (father heart atttack) Hx Family Respiratory Disorders: No Hx Family Cancer: Yes (son bone marrow cancer) Hx Family GI Disorders: No Hx Family Endocrine Disorder: No Hx Family Neuromuscular Disorders: No Hx Family Neurologic Disorders: No Hx Family HEENT Disorders: No Hx Family Autoimmune Disorders: No Internal Medicine - H&P: Meds Albuterol Sulfate [Albuterol Inhaler] 2 puff IH Q4H PRN 06/17/16 [History] Aspirin Enteric Coated [Aspirin EC] 81 mg PO DAILY 06/17/16 [History] Glimepiride [Amaryl] 4 mg PO BID 06/17/16 [History] Lisinopril [Zestril] 20 mg PO DAILY 06/17/16 [History] Simvastatin [Zocor] 20 mg PO HS 06/17/16 [History] Albuterol Neb [Proventil Neb] 2.5 mg IH Q4HR PRN 30 Days vial.neb 06/23/16 [Rx] Budesonide/Formoterol 160/4.5 [Symbicort 160/4.5] 2 puff IH BIDR #1 inhaler 07/17/16 [Rx] Subcutaneous Insulin Pump [T:Slim] 0 units SQ DAILY 10/02/17 [History] ALPRAZolam [Xanax 0.5 MG Tablet] 0.5 mg PO BID 04/02/18 [History] ARIPiprazole [Abilify] 2 mg PO HS 04/02/18 [History] Metoprolol [Lopressor] 25 mg PO BID 04/02/18 [History] Sertraline [Zoloft] 200 mg PO DAILY 04/02/18 [History] Furosemide [Lasix] 80 mg PO DAILY 05/11/18 [History] Levalbuterol Neb [Xopenex Neb] 1.25 mg IH Q6H PRN 05/11/18 [History] Metformin HCl [Glucophage Xr] 500 mg PO BID 05/11/18 [History] Tiotropium [Spiriva] 18 mcg PO DAILY 05/11/18 [History] Allergy/AdvReac Type Severity Reaction Status Date / Time levofloxacin [From Levaquin] Allergy Intermediate See Verified 05/11/18 21:56 Comments All Systems PM: A 10-system review of systems was performed and is negative for pertinent findings except as documented above in the HPI. - Constitutional Vitals: Temp Pulse Resp BP Pulse Ox 97.9 F 92 24 123/85 100 05/11/18 15:52 05/11/18 15:52 05/11/18 20:22 05/11/18 20:22 05/11/18 16:14 General appearance: Present: cooperative, A&O X 3, pleasant, no acute distress, obese, answers questions appropriately Exam: Tearful at times. Bilateral UE tremors - Head Head exam: Present: atraumatic, normal inspection, normocephalic - Eye Eye exam: Present: normal appearance. Absent: scleral icterus - ENT ENT exam: Present: mucous membranes dry - Neck Neck exam general surgery: Present: normal inspection, supple, trachea midline. Absent: lymphadenopathy - Respiratory Respiratory exam: Present: chest wall tenderness (R/mid thorax), decreased breath sounds, prolonged expiratory phase, wheezes. Absent: accessory muscle use, CTAB, rales, respiratory distress, rhonchi, stridor, tachypnea - Cardiovascular Cardiovascular exam: Present: diastolic murmur (2/6 delayed murmur best heard L lower sternal border), +S1, +S2, tachycardia (regular rhythm). Absent: bradycardia, clicks, distant heart sounds, gallop, irregular rhythm, JVD, RRR, rubs, +S3, +S4, systolic murmur - GI/Abdominal GI/Abdominal exam: Present: soft. Absent: distended, firm, guarding, hepatomegaly, rebound, rigid, splenomegaly, tenderness - Extremities Exam Extremities exam: Present: normal capillary refill, normal inspection, pedal edema (1-2+), warm, radial pulses palpable and symmetrical. Absent: calf tenderness, cyanotic, joint swelling, tenderness - Back Exam Additional comments: scattered telangiectasias - Neurological Exam Neurological exam: Present: alert, CN II-XII intact, no focal deficits. Absent: facial droop, speech deficit - Psychiatric Psychiatric exam: Present: normal affect, normal mood - Skin Skin exam: Present: dry, intact, normal color, warm. Absent: abrasion, cyanosis, diaphoretic, erythema, excoriation, mottled, pallor, petechiae, rash, urticaria, vesicles Internal Med - H&P Results - Labs CBC & Chem 7: 05/11/18 16:03 05/11/18 16:03 Labs: Short CBC 05/11/18 Range/Units 16:03 WBC 10.5 (4.3-11.1) K/mcL Hgb 9.6 L (11.5-15.4) g/dL Hct 32.8 L (35.3-44.9) % Plt Count 271 (140-400) K/mcL Neutrophils # 8.8 (1.6-8.9) K/mcL BMP 05/11/18 16:03 Sodium 137 Potassium 5.2 H Chloride 95 L Carbon Dioxide 36 H BUN 20 Creatinine 0.61 Glucose 374 H Calcium 9.3 Cardiac Enzymes 05/11/18 Range/Units 16:03 Troponin I 0.04 H* (< 0.04) ng/mL - Impressions ITS Impressions Chest X-Ray 05/11/18 15:54 IMPRESSION: Cardiomegaly with pulmonary vascular congestion. Suspect small bilateral pleural effusions. Atelectasis noted in the retrocardiac left lower lobe D/ / Saeid Mclean MD / Saeid Mclean MD Interpreting Provider: Saeid Mclean MD Chest CTA 05/11/18 17:02 IMPRESSION: 1. No pulmonary embolism. 2. Stable spiculated nodule in the right upper lobe with no uptake on a prior PET-CT. Lack of change since June 2016 and lack of uptake may favor a benign process such as fibrotic change. Continued follow-up is advised. 3. Decreased pleural effusions. Decreased mediastinal and right hilar lymphadenopathy as well. D/ / Oral Paiz MD / Oral Paiz MD Interpreting Provider: Oral Paiz MD - Assessment and plan (1) Acute exacerbation of chronic obstructive airways disease Current Visit: No Status: Acute Assessment and plan: -Acute onset yellow productive cough and exertional dyspnea, over last 2 days -Found to be hypoxic with sats in 70's on 3L O2 via EMS at home that improved to 90's with 5L O2 -Admitted multiple times over last few months for similar symptoms and received azithro 3x over last few weeks -Former smoker with 40 pack year hx -Afebrile, tachypneic, tachycardic, hypoxic requiring increased supplemental O2 -Will start azithro and ceftriaxone due to levofloxacin allergy, PO steroids, scheduled broncodilators, and continue home symbicort (2) Heart failure with preserved ejection fraction Current Visit: Yes Status: Chronic Assessment and plan: -Hx of HFpEF -Has orthopnea, dyspnea and peripheral edema but denies PND -BNP 111 -ECHO 09/22/17: EF 60-65%, normal LV/RV size/function, mod LVOT obstruction, mild LV diastolic dysfunction, severely dilated LA, severe MS -CTA chest 05/11/18: No PE, stable spiculated RUL nodule unchanged since 2017, small bilat pleural effusions -Will give furosemide for symptomatic relief, restart home BB and ACEi, and trend daily weights, uop, renal function and electrolytes -Repeat TTE recommended for severe MS pending Qualifiers: Heart failure chronicity: chronic Qualified Code(s): I50.32 - Chronic diastolic (congestive) heart failure (3) Elevated troponin Current Visit: Yes Status: Acute Assessment and plan: -Initial troponin 0.04 -Likely 2/2 demand ischemia in the setting of hypoxia with sats 70's > ACS -Complains of R lower thorax chest pain exacerbated with coughing but no other symptoms concerning of ACS -Will trend troponin x2 (4) Diabetes Current Visit: No Status: Chronic Assessment and plan: -Hx of DM with insulin use -Glucose on arrival 374 -Repeat acuchek on floor 539 -Will start basal and ssi Qualifiers: Diabetes mellitus type: type 2 Diabetes mellitus fpc insulin use: with fpc use Diabetes mellitus complication status: with unspecified complications Qualified Code(s): E11.8 - Type 2 diabetes mellitus with unspecified complications; Z79.4 - ocean transportation intermediary (current) use of insulin (5) Hypertension Current Visit: No Status: Chronic Assessment and plan: -Hx of HTN -BP on arrival 118/68 -BP 159/65 most recently -Restart home antihypertensives and monitor Qualifiers: Hypertension type: essential hypertension Qualified Code(s): I10 - E ssential (primary) hypertension (6) Anxiety Current Visit: No Status: Chronic Assessment and plan: -Hx of anxiety on alprazolam at home -Recent increase in anxiety 2/2 sons cancer dx -Will restart home alprazolam (7) HLD (hyperlipidemia) Current Visit: No Status: Chronic Assessment and plan: -Hx of HLD -Continue home statin -Lipid panel in the am Qualifiers: Hyperlipidemia type: unspecified Qualified Code(s): E78.5 - Hyperlipidemia, unspecified (8) Chronic anemia Current Visit: Yes Status: Acute Assessment and plan: -HgB 9.6 on arrival which appears to be about her baseline -No hemoptysis, hematemesis, melena reports -Will monitor for acute drops (9) Hyperkalemia Current Visit: Yes Status: Acute Assessment and plan: -K 5.2 on arrival -Getting broncodilators and insulin which should decrease K -On tele and will monitor K with morning labs and address as indicated (10) Tachycardia Current Visit: Yes Status: Acute Assessment and plan: -HR 92 on arrival and 105 most recently -Will start home BB for rate control and monitor overnight -If rate under control tomorrow will repeat TTE as recommended previously for severe MS (11) Severe mitral stenosis by prior echocardiogram Current Visit: Yes Status: Acute Assessment and plan: -Orthopnea, worsening dyspnea on exertion and diastolic murmur at L lower sternal border -ECHO 09/22/17: EF 60-65%, normal LV/RV size/function, mod LVOT obstruction, mild LV diastolic dysfunction, severely dilated LA, severe MS -Dr Osei recommended at the time to repeat TTE as she was tachycardic at the time -She has been tachycardic on the floor and restarting home BB for rate control -If rate under control in the morning will repeat TTE at that time (12) DVT prophylaxis Current Visit: No Status: Acute Assessment and plan: -SQ heparin - Time Spent With Patient Total time spent is greater than 50% in coordination of care (as documented) at patient's floor/unit and/or counseling patient: <Dalton Camacho - Last Filed: 05/12/18 05:12> Date of Encounter: 05/12/18 Internal Medicine - H&P: HPI History of present illness: Ms. Conroy is a 73 year old female All Systems PM: A 10-system review of systems was performed and is negative for pertinent findings except as documented above in the HPI. - Constitutional Vitals: Temp Pulse Resp BP Pulse Ox 98.3 F 88 17 111/55 94 05/12/18 04:08 05/12/18 04:08 05/12/18 04:08 05/12/18 04:08 05/12/18 04:08 Internal Med - H&P Results - Labs CBC & Chem 7: 05/11/18 16:03 05/11/18 16:03 Labs: Short CBC 05/11/18 Range/Units 16:03 WBC 10.5 (4.3-11.1) K/mcL Hgb 9.6 L (11.5-15.4) g/dL Hct 32.8 L (35.3-44.9) % Plt Count 271 (140-400) K/mcL Neutrophils # 8.8 (1.6-8.9) K/mcL BMP 05/11/18 16:03 Sodium 137 Potassium 5.2 H Chloride 95 L Carbon Dioxide 36 H BUN 20 Creatinine 0.61 Glucose 374 H Calcium 9.3 Cardiac Enzymes 05/11/18 05/11/18 Range/Units 16:03 22:26 Troponin I 0.04 H* 0.05 H* (< 0.04) ng/mL - Impressions ITS Impressions Chest X-Ray 05/11/18 15:54 IMPRESSION: Cardiomegaly with pulmonary vascular congestion. Suspect small bilateral pleural effusions. Atelectasis noted in the retrocardiac left lower lobe D/ / Saeid Mclean MD / Saeid Mclean MD Interpreting Provider: Saeid Mclean MD Chest CTA 05/11/18 17:02 IMPRESSION: 1. No pulmonary embolism. 2. Stable spiculated nodule in the right upper lobe with no uptake on a prior PET-CT. Lack of change since June 2016 and lack of uptake may favor a benign process such as fibrotic change. Continued follow-up is advised. 3. Decreased pleural effusions. Decreased mediastinal and right hilar lymphadenopathy as well. D/ / Oral Paiz MD / Oral Paiz MD Interpreting Provider: Oral Paiz MD - Time Spent With Patient Total time spent is greater than 50% in coordination of care (as documented) at patient's floor/unit and/or counseling patient: - Attending Attestation I saw and evaluated the patient. I reviewed the residents note, performed my own physical examination and agree with findings and plan as documented in the residents note. Patient seen and examined on 05/12/18. Patient presented with hypoxic respiratory failure, similar to previous admissions. Patient also has known mitral stenosis on echo, with recommendation for repeat when heart rate is less tachy. Will follow up results of this, mitral stenosis could be contributing to exacerbation of COPD. Patient's breathing has improved with breathing treatments.
[2018-05-11] MEDS ORDERED: Naloxone 0.4 MG/ML INJ IVP PRN (21:08)
[2018-05-11] MEDS ORDERED: Ondansetron 4 MG/2 ML VIAL IVP PRN (21:08)
[2018-05-11] MEDS ORDERED: D5% in Water 1,000 ML IVC PRN (21:12)
[2018-05-11] MEDS ORDERED: Dextrose Gel 15 GM/37.5 ML TUBE PO PRN ×2 (21:12)
[2018-05-11] MEDS ORDERED: *HR* Dextrose 50 % in Water (Syg) 50 ML SYRINGE IVP PRN (21:12)
[2018-05-11] MEDS: Budesonide/Formoterol 160/4.5 1 PUFF INH IH SCH (22:19)
[2018-05-11] MEDS: Ipratropium/Albuterol Neb 3 ML IH SCH (22:19)
[2018-05-11] MEDS: *HR* Heparin 5,000 UNIT/ML VIAL SQ SCH (22:22)
[2018-05-11] MEDS: Insulin LISPRO 300 UNITS/3 ML VIAL SQ SCH (22:22)
[2018-05-11 22:47] LABS: Estimated Average Glucose 232 mg/dl; Hemoglobin A1C 9.7 %
[2018-05-11] MEDS ORDERED: Azithromycin 250 MG TABLET PO ONE (22:51)
[2018-05-11] MEDS ORDERED: cefTRIAXone 1,000 MG in Water for inj. (sterile) 20 ML 10 ML IVPB SCH (23:00)
[2018-05-11] MEDS ORDERED: Insulin DETEMIR 100 UNIT/ML X5UNITS SQ SCH (23:00)
[2018-05-11] MEDS: ALPRAZolam 0.5 MG TABLET PO SCH (23:57)
[2018-05-12] MEDS: Ipratropium/Albuterol Neb 3 ML IH SCH ×5 (03:41→23:53)
[2018-05-12 05:27] LABS: Basophils % 0.2 %; Hematocrit 30.3 % (35.3-44.9); Hemoglobin 9.2 g/dL (11.5-15.4); Immature Granulocytes % 0.6 % (0-4); Lymphocytes # 0.4 K/mcL (0.6-4.6); Lymphocytes % 4.3 %; Mean Corpuscular HGB Conc 30.4 g/dL (31.6-35.5); Mean Corpuscular Hemoglobin 25.8 pg (28.0-33.3); Mean Corpuscular Volume 84.9 fL (83.0-100.0); Mean Platelet Volume 9.9 fL (9.4-12.4); Monocytes # 0.2 K/mcL (0.0-1.3); Monocytes % 1.9 %; Neutrophils # 9.3 K/mcL (1.6-8.9); Platelet Count 237 K/mcL (140-400); Red Blood Count 3.57 M/mcL (3.82-4.97); Red Cell Distribution Width 14.6 % (11.5-14.5)
[2018-05-12] MEDS: *HR* Heparin 5,000 UNIT/ML VIAL SQ SCH ×3 (05:33→20:53)
[2018-05-12 05:35] LABS: INR 0.9; Prothrombin Time 10.4 Seconds (9.4-12.1)
[2018-05-12 05:37] LABS: Activated Partial Thrombo Time 28.4 Seconds (26.0-36.0)
[2018-05-12 05:47] LABS: BUN/Creatinine Ratio 33 (6-26); Blood Urea Nitrogen 25 mg/dL (8-23); Calcium 9.2 mg/dL (8.6-10.3); Carbon Dioxide 34 mEq/L (23-29); Chloride 95 mEq/L (98-107); Chol/HDL Ratio 3.4 (0-4.9); Cholesterol 241 mg/dL (< 200); Glucose 417 mg/dL (70-105); HDL Cholesterol 70 mg/dL (40-59); LDL Cholesterol,Calculated 138 mg/dL (0-99); Magnesium 1.9 mg/dL (1.6-2.6); Osmolality,Calculated 304 (280-300); Phosphorous 4.7 mg/dL (2.7-4.5); Potassium 5.6 mEq/L (3.5-5.1); Sodium 136 mEq/L (136-145); Triglycerides 164 mg/dL (< 150); eGFR For Non-African Americans > 60 (> 60)
[2018-05-12] MEDS ORDERED: MethylPREDNISolone 40 MG/ML VIAL IVP SCH (06:00)
[2018-05-12] MEDS: Lisinopril 20 MG TABLET PO SCH (08:47)
[2018-05-12] MEDS: cefTRIAXone 1,000 MG in Water for inj. (sterile) 20 ML 10 ML IVP SCH (08:48)
[2018-05-12] MEDS: Aspirin Enteric Coated 81 MG Tablet PO SCH (08:48)
[2018-05-12] MEDS: Azithromycin 250 MG TABLET PO SCH (08:48)
[2018-05-12] MEDS: predniSONE 20 MG TABLET PO SCH ×2 (08:48→16:13)
[2018-05-12] MEDS: ALPRAZolam 0.5 MG TABLET PO SCH ×2 (08:48→20:53)
[2018-05-12] MEDS: Insulin LISPRO 300 UNITS/3 ML VIAL SQ SCH ×4 (08:49→21:00)
[2018-05-12] MEDS ORDERED: Perflutren Lipid Microsphere 1.3 ML in 0.9 % Sodium Chloride 8.7 ML IVP ONE (10:49)
[2018-05-12] MEDS: Budesonide/Formoterol 160/4.5 1 PUFF INH IH SCH ×2 (11:26→20:14)
--- NOTE | 2018-05-12 12:56 | Internal Med Progress Note ---
Hospitalist Progress Note - Encounter Date of Encounter: 05/12/18 Time of Encounter: 18:41 - Subjective Interval History: today feels much improved from yesterday, still winded with exertion and is anxious but more calm as her breathing feels better. Denies fevers or chills or night sweats, SOB and cough improving, CP only w cough and no palpitations, no abd pain or N/V or diarrhea. - Exam Vitals: Temp Pulse Resp BP Pulse Ox 98.2 F 84 18 117/51 95 05/12/18 11:20 05/12/18 11:20 05/12/18 11:28 05/12/18 11:20 05/12/18 11:28 Exam: General: NAD, AAOx3, good eye contact, well appearing Thoracic: L lung blunting at base, overall diminished aeration and forced expiratory wheeze Cardio: Normal S1 and S2, regular rate and rhythm, no murmurs Abdomen: Soft, nontender, nondistended. Extremities: Warm, well perfused. DP pulses 2+ b/l. Mild pitting edema in b/l LE Skin: Intact. No rashes, bruises, or ulcers Neuro: Awake, fully oriented. Speech fluent - Summary of Assessment and Plan Summary of Assessment and Plan: 73 F w hx COPD, HFpEF, severe MS, YANNICK, obesity, lung nodule, HTN, anxiety, who p/w SOB, wheezing, sputum production, and hypoxia, c/w COPD exacerbation. COPD exacerbation: improving today - O2 as below - nebs q4h&prn - decrease pred to 50 daily - continue azithro 500 daily x5d - d/c rocephin as nothing to suggest PNA (no WBC and CT w/o consolidation) Chronic HFpEF and severe mitral stenosis: does have pedal edema and small L pleural effusion, last TTE showing dilated LA and severe MS. Per patient was previously told by [facility] that no repair/replacement indicated at this time. - will give Lasix 40 iv x1 - repeat TTE pending Elevated troponin: likely 2/2 demand ischemia in the setting of hypoxia with sats 70's prior to arrival, although does have CP when coughing - trops peaked 0.05 - O2 as above - ASA, statin DM2: w significant hyperglycemia likely 2/2 steroids, reduce pred as above, resume home basal insulin and use SSI Hyperkalemia: lasix and insulin as above Chronic normocytic anemia: monitor, transfuse if Hb <7 Lung nodule: CTA chest 05/11/18: stable spiculated RUL nodule unchanged since 2017 HTN: home ACEi, BB Anxiety: home xanax prn, resume zoloft 200 and abilify daily YANNICK: CPAP qhs, pt noncompliant at home but advised importance of nightly use PPx: hep sq FEN: heart healthy ADA Consults: Lines: PIV Code: [id number] Dispo: needs inpatient for now, likely home when improves - Time Spent with Patient Total time spent is greater than 50% in coordination of care (as documented) at patient's floor/unit and/or counseling patient: 25 - 35 minutes Internal Medicine: Result - Labs CBC & Chem 7: 05/12/18 04:42 05/12/18 04:42 Labs: Short CBC 05/11/18 05/12/18 Range/Units 16:03 04:42 WBC 10.5 10.0 (4.3-11.1) K/mcL Hgb 9.6 L 9.2 L (11.5-15.4) g/dL Hct 32.8 L 30.3 L (35.3-44.9) % Plt Count 271 237 (140-400) K/mcL Neutrophils # 8.8 9.3 H (1.6-8.9) K/mcL BMP 05/11/18 05/12/18 16:03 04:42 Sodium 137 136 Potassium 5.2 H 5.6 H Chloride 95 L 95 L Carbon Dioxide 36 H 34 H BUN 20 25 H Creatinine 0.61 0.76 Glucose 374 H 417 H Calcium 9.3 9.2 Cardiac Enzymes 05/11/18 05/11/18 05/12/18 Range/Units 16:03 22:26 04:42 Troponin I 0.04 H* 0.05 H* 0.04 H* (< 0.04) ng/mL - ABG Interpretation ABG results: PT/INR, D-dimer PT 10.4 Seconds (9.4-12.1) 05/12/18 04:42 D-Dimer 1014 ng/mLFEU (0-500) H 05/11/18 16:03 - Impressions Impressions Chest X-Ray 05/11/18 15:54 IMPRESSION: Cardiomegaly with pulmonary vascular congestion. Suspect small bilateral pleural effusions. Atelectasis noted in the retrocardiac left lower lobe D/ / Saeid Mclean MD / Saeid Mclean MD Interpreting Provider: Saeid Mclaen MD Chest CTA 05/11/18 17:02 IMPRESSION: 1. No pulmonary embolism. 2. Stable spiculated nodule in the right upper lobe with no uptake on a prior PET-CT. Lack of change since June 2016 and lack of uptake may favor a benign process such as fibrotic change. Continued follow-up is advised. 3. Decreased pleural effusions. Decreased mediastinal and right hilar lymphadenopathy as well. D/ / Oral Paiz MD / Oral Paiz MD Interpreting Provider: Oral Paiz MD Consult Discharge Plan - Plan Referrals: Eddie Whitley MD [Primary Care Provider] - 05/19/18 10:45 am (Please follow up as schedule....)
[2018-05-12] MEDS ORDERED: Furosemide 40 MG/4 ML VIAL IVP ONE (12:58)
--- NOTE | 2018-05-12 14:09 | Electrocardiograph Report ---
[address] [place], [place] [address] Test Date: 2018-05-11 Pat Name: Clary Conroy Department: [id number] Room: 2A32 Gender: F Etl Database Developer: : [id number] Requested By: Chris Chávez Order Number: [id number] Reading MD: Gabino Hollingsworth Measurements Intervals [place] Rate: 93 P: 67 VT: 175 QRS: 74 QRSD: 91 T: 90 QT: 352 QTc: 438 Interpretive Statements Sinus rhythm Electronically Signed On 05-12-2018 14:07:30 EST by Gabino Hollingsworth
[2018-05-12] MEDS ORDERED: Insulin LISPRO 300 UNITS/3 ML VIAL SQ ONE (18:29)
[2018-05-12] MEDS ORDERED: ARIPiprazole 2 MG TABLET PO SCH (21:00)
[2018-05-12] MEDS ORDERED: Insulin DETEMIR 100 UNIT/ML X5UNITS SQ SCH (21:00)
[2018-05-13] MEDS ORDERED: ALPRAZolam 0.25 MG TABLET PO ONE (02:01)
[2018-05-13] MEDS: Ipratropium/Albuterol Neb 3 ML IH SCH ×3 (04:12→11:07)
[2018-05-13] MEDS: *HR* Heparin 5,000 UNIT/ML VIAL SQ SCH ×2 (05:32→14:02)
[2018-05-13 06:49] LABS: Hematocrit 28.1 % (35.3-44.9); Hemoglobin 8.9 g/dL (11.5-15.4); Immature Platelets 2.8 % (1.1-6.1); Mean Corpuscular HGB Conc 31.7 g/dL (31.6-35.5); Mean Corpuscular Hemoglobin 26.3 pg (28.0-33.3); Mean Corpuscular Volume 82.9 fL (83.0-100.0); Mean Platelet Volume 9.7 fL (9.4-12.4); Red Blood Count 3.39 M/mcL (3.82-4.97); Red Cell Distribution Width 14.6 % (11.5-14.5)
[2018-05-13] MEDS: Budesonide/Formoterol 160/4.5 1 PUFF INH IH SCH (07:36)
[2018-05-13] MEDS ORDERED: *HR* Metformin 500 MG TABLET PO SCH (08:00)
[2018-05-13 08:36] LABS: BUN/Creatinine Ratio 46 (6-26); Blood Urea Nitrogen 32 mg/dL (8-23); Calcium 9.4 mg/dL (8.6-10.3); Carbon Dioxide 38 mEq/L (23-29); Chloride 93 mEq/L (98-107); Glucose 389 mg/dL (70-105); Osmolality,Calculated 303 (280-300); Potassium 4.5 mEq/L (3.5-5.1); Sodium 135 mEq/L (136-145); eGFR For Non-African Americans > 60 (> 60)
[2018-05-13] MEDS ORDERED: predniSONE 20 MG TABLET PO SCH (09:00)
[2018-05-13] MEDS ORDERED: Tiotropium 18 MCG inhalation IH SCH (09:00)
[2018-05-13] MEDS ORDERED: Furosemide 40 MG TABLET PO SCH (09:00)
[2018-05-13] MEDS: Lisinopril 20 MG TABLET PO SCH (09:23)
[2018-05-13] MEDS: Azithromycin 250 MG TABLET PO SCH (09:23)
[2018-05-13] MEDS: Aspirin Enteric Coated 81 MG Tablet PO SCH (09:23)
[2018-05-13] MEDS: ALPRAZolam 0.5 MG TABLET PO SCH (09:23)
[2018-05-13] MEDS: cefTRIAXone 1,000 MG in Water for inj. (sterile) 20 ML 10 ML IVP SCH (09:24)
[2018-05-13] MEDS: Insulin LISPRO 300 UNITS/3 ML VIAL SQ SCH ×2 (09:25→11:37)
[2018-05-13] MEDS ORDERED: Budesonide/Formoterol 160/4.5 1 PUFF INH IH SCH (10:00)
--- NOTE | 2018-05-13 11:17 | Discharge Summary ---
- NOTES TO OUTPATIENT PROVIDER Notes to Outpatient Provider: Resume V-Go and monitor hyperglycemia from steroids, new chronic azithro 250 daily, needs Neuro referral for tremor Date of Encounter: 05/13/18 Time of Encounter: 11:10 - Discharge Diagnosis (1) Acute and chronic respiratory failure Priority: Secondary Status: Resolved Qualifiers: Respiratory failure complication: hypoxia Qualified Code(s): J96.21 - Acute and chronic respiratory failure with hypoxia (2) COPD with exacerbation Priority: Primary Status: Acute Hospital course: Dear Doctors, I recently had the opportunity to care for this patient during their hospital stay at [facility]. Clary Conroy is a 73 F w hx COPD on 3L, HFpEF, moderate MS, HTN, YANNICK, obesity, lung nodule, anxiety, who presented at time of admission with shortness of breath, wheezing, increased sputum production, and hypoxia, consistent with COPD exacerbation that did not improve in ED with frequent nebs and requiring more O2 than baseline. She was noted to have mild pedal edema, too. In the hospital, the patient slowly improved with supplemental O2, duonebs, azithromycin, and prednisone. She was back on her home O2 level by day of discharge. The patient was also given IV lasix for a day instead of home PO, with equivocal improvement in mild edema. An Echo was obtained to rule out worsening of mitral stenosis which could cause CHF picture, which showed stable moderate MS, pointing to COPD as cause of patient's symptoms. Of note, the patient did have persistent tremor, which did not improve with xopenex. She requested neurology referral. Hospital course complicated with hyperglycemia 400-500s improved with basal/bolus insulin coverage. Pt is on V-Go at home. 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 Please contact me with any questions or concerns regarding their hospital stay. Sincerely, Jose Alberto Motley - Time Spent with Patient Total time spent providing and/or coordinating discharge services: Greater than 30 minutes - Discharge Medications Prescriptions: Azithromycin [Zithromax] 250 mg PO DAILY #30 tablet predniSONE [PredniSONE] 40 mg PO DAILY #4 tablet Home Medications: Albuterol Sulfate [Albuterol Inhaler] 2 puff IH Q4H PRN 06/17/16 [History] Aspirin Enteric Coated [Aspirin EC] 81 mg PO DAILY 06/17/16 [History] Glimepiride [Amaryl] 4 mg PO BID 06/17/16 [History] Lisinopril [Zestril] 20 mg PO DAILY 06/17/16 [History] Simvastatin [Zocor] 20 mg PO HS 06/17/16 [History] Albuterol Neb [Proventil Neb] 2.5 mg IH Q4HR PRN 30 Days vial.neb 06/23/16 [Rx] Budesonide/Formoterol 160/4.5 [Symbicort 160/4.5] 2 puff IH BIDR #1 inhaler 07/17/16 [Rx] ALPRAZolam [Xanax 0.5 MG Tablet] 0.5 mg PO BID 04/02/18 [History] ARIPiprazole [Abilify] 2 mg PO HS 04/02/18 [History] Metoprolol [Lopressor] 25 mg PO BID 04/02/18 [History] Sertraline [Zoloft] 200 mg PO DAILY 04/02/18 [History] Furosemide [Lasix] 80 mg PO DAILY 05/11/18 [History] Levalbuterol Neb [Xopenex Neb] 1.25 mg IH Q6H PRN 05/11/18 [History] Metformin HCl [Glucophage Xr] 500 mg PO BID 05/11/18 [History] Tiotropium [Spiriva] 18 mcg PO DAILY 05/11/18 [History] Sub-Q Insulin Device, 30 Unit [VGo 30] 1 patch SQ AD 05/12/18 [History] Azithromycin [Zithromax] 250 mg PO DAILY #30 tablet 05/13/18 [Rx] predniSONE [PredniSONE] 40 mg PO DAILY #4 tablet 05/13/18 [Rx] Allergies/Adverse Reactions: Allergy/AdvReac Type Severity Reaction Status Date / Time levofloxacin [From Levaquin] Allergy Intermediate See Verified 05/11/18 21:56 Comments Date of admission: 05/12/18 01:29 Primary care physician: Eddie Whitley Consults: 05/12/18 09:25 Consult to Nurse Navigator [CONS] Routine Comment: copd,chf - Constitutional Vitals: Temp Pulse Resp BP Pulse Ox 97.8 F 81 20 114/54 95 05/13/18 07:24 05/13/18 07:24 05/13/18 11:08 05/13/18 07:24 05/13/18 11:08 General appearance: Present: cooperative, A&O X 3, pleasant, no acute distress, obese, answers questions appropriately Exam: General: NAD, AAOx3, good eye contact, well appearing Thoracic: L lung blunting at base, overall diminished aeration and forced expiratory wheeze Cardio: Normal S1 and S2, regular rate and rhythm, no murmurs Abdomen: Soft, nontender, nondistended. Extremities: Warm, well perfused. DP pulses 2+ b/l. Mild pitting edema in b/l LE Skin: Intact. No rashes, bruises, or ulcers Neuro: Awake, fully oriented. Speech fluent - Patient Status Disposition: Home Health Service Condition: Fair Functional capacity at discharge: uses cane/walker Overall status at discharge: patient is progressing back to baseline - Discharge Instructions Instructions: Prednisone (By mouth), Heart Failure (GEN), Chronic Obstructive Pulmonary Disease (GEN) Follow Up With: Neurology [facility] [Provider Group] (web request sent. Office will call you with an appointment date and time) Eddie Whitley MD [Primary Care Provider] - 05/19/18 10:45 am (Please follow up as schedule....) - Diet and Activity Activity: increase activity as tolerated Diet: diabetic diet (and low salt)
[2018-05-13 11:34] VITALS: BP 122/62
--- NOTE | 2018-05-13 16:00 | Physician Discharge Referral ---
Home Health/Hosp Referral Info Transfer to: Home Health Provider in Charge Post Discharge: PCP - Diagnosis (1) Acute and chronic respiratory failure Priority: Secondary Status: Resolved (2) COPD with exacerbation Priority: Primary Status: Acute - Respiratory Orders Oxygen / L per min (3L) Smoking Cessation: Smoking cessation has been advised. For more information, call the [place] Tobacco Quit Line at 9-486-KNEC-NOW. - Services Needed Following services are medically necessary services: Nursing, Home Health Aide, Physical Therapy, Occupational Therapy - Transfer Medications Prescriptions: Azithromycin [Zithromax] 250 mg PO DAILY #30 tablet predniSONE [PredniSONE] 40 mg PO DAILY #4 tablet Home Medications: Albuterol Sulfate [Albuterol Inhaler] 2 puff IH Q4H PRN 06/17/16 [History] Aspirin Enteric Coated [Aspirin EC] 81 mg PO DAILY 06/17/16 [History] Glimepiride [Amaryl] 4 mg PO BID 06/17/16 [History] Lisinopril [Zestril] 20 mg PO DAILY 06/17/16 [History] Simvastatin [Zocor] 20 mg PO HS 06/17/16 [History] Albuterol Neb [Proventil Neb] 2.5 mg IH Q4HR PRN 30 Days vial.neb 06/23/16 [Rx] Budesonide/Formoterol 160/4.5 [Symbicort 160/4.5] 2 puff IH BIDR #1 inhaler 07/17/16 [Rx] ALPRAZolam [Xanax 0.5 MG Tablet] 0.5 mg PO BID 04/02/18 [History] ARIPiprazole [Abilify] 2 mg PO HS 04/02/18 [History] Metoprolol [Lopressor] 25 mg PO BID 04/02/18 [History] Sertraline [Zoloft] 200 mg PO DAILY 04/02/18 [History] Furosemide [Lasix] 80 mg PO DAILY 05/11/18 [History] Levalbuterol Neb [Xopenex Neb] 1.25 mg IH Q6H PRN 05/11/18 [History] Metformin HCl [Glucophage Xr] 500 mg PO BID 05/11/18 [History] Tiotropium [Spiriva] 18 mcg PO DAILY 05/11/18 [History] Sub-Q Insulin Device, 30 Unit [VGo 30] 1 patch SQ AD 05/12/18 [History] Azithromycin [Zithromax] 250 mg PO DAILY #30 tablet 05/13/18 [Rx] predniSONE [PredniSONE] 40 mg PO DAILY #4 tablet 05/13/18 [Rx] Allergies/Adverse Reactions: Allergy/AdvReac Type Severity Reaction Status Date / Time levofloxacin [From Levaquin] Allergy Intermediate See Verified 05/11/18 21:56 Comments Certification: Further, I certify that my clinical findings support that this patient is homebound (i.e. absences from home require considerable and taxing effort and are for medical reasons or church services or infrequently or short duration when for other reasons) because: Homebound Reason: Severity of cardiac or pulmonary status limits activity tolerance Attestation: My signature below is to certify that this patient is under my care and that I, or nurse practitioner, or a physician's sourcing assistant working with me, has a [id number] encounter with this patient.
== END 2018-05-13 16:24 | disposition home health service (06) | DRG 190 ==
LOC: EMEROOARM 15:44 → 2ANU 15:44 → SUATTDRO 05-12 01:29
PROVIDERS: ADMIT Hospitalist; ATTEND Internal Medicine